=== PATIENT | male | born 1985 | race Caucasian/White ===

== ENCOUNTER → 2024-01-18 06:38 | Day surgery (SDC) | payer OTHER, SELFPAY | LOC: GI 06:38 | PROVIDERS: ATTENDING PHYSICIAN Internal Medicine | DX: Z12.11 Encounter for screening for malignant neoplasm of colon (principal); K52.3 Indeterminate colitis; K63.3 Ulcer of intestine; K63.89 Other specified diseases of intestine; R21 Rash and other nonspecific skin eruption | CPT/HCPCS: 45380; 88305 ==

== ENCOUNTER 2024-08-17 17:01 | Inpatient (IN) | payer OTHER, SELFPAY ==
[2024-08-17] VITALS (10 sets, daily range): BP systolic 111–141; BP diastolic 77–100; BMI 25.3; BMI 24.9
--- NOTE | 2024-08-17 12:27 | ED.GENMED ---
History of Present Illness
General
Chief Complaint: Abdominal Pain
Source: patient
Time Seen by Provider: 08/17/24 12:13
History of Present Illness
History of Present Illness:
38yoM with a history of ulcerative colitis presenting for evaluation of abdominal pain. He reports ongoing lower abdominal pain and rectal bleeding over the past 2-3 weeks. He started to have chills 2 days ago but did not check his temperature. He
has not been eating much due to his symptoms. He developed nausea and vomiting yesterday. He is currently taking Lialda which he has been on for many years. Last colonoscopy was in January 2024 which revealed 'A scattered area of moderately altered
vascular, erythematous, pseudopolypoid and ulcerated mucosa was found from sigmoid to cecum.' Previous abdominal surgeries include an inguinal hernia repair.
Past History
Past History
ED Past Medical History: Other (Ulcerative colitis)
ED Past Surgical History: Other (hernia)
Social History
Tobacco: Non-smoker
Alcohol: None
Personal: Single
Living: alone
Employment: Employed
Phy Exam
General Physical Exam
General Presentation: well appearing and no apparent distress
General age: appears stated age
General Skin: warm and dry
General Habitus: normal
General Mental: alert
ENT Exam
ENT Exam: normocephalic
Cardiovascular Exam
Cardiovascular Exam: tachycardia
Pulmonary Exam
Pulmonary Exam: lungs clear, no respiratory distress, no rales, no crackles, no rhonchi and no wheezing
Gastrointestinal Exam
Gastrointestinal Exam: soft, non distended and tender (+Tenderness throughout lower abdomen with voluntary guarding)
Lonnie Coma Scale
Eye Opening: Spontaneous
Verbal Response: Oriented
Motor Response: Obeys Commands
GCS Total Score: 15
Skin Exam
Skin Exam: normal color and warm/dry
Psychiatric Exam
Psychiatric Exam: normal mood/affect
Sepsis
Sepsis Screening
Sepsis Assessment: Sepsis
Sepsis Screen
Sepsis Screen: Sepsis
Date: 08/17/24
Time: 17:15
Course
Orders/Labs/Results
Orders:
Orders
08/17/24 12:25
Iohexol [Omnipaque] See Protocol PO NOW STA
08/17/24 12:26
CT Abd/pel W Iv And Oral Contr Urgent
Comment:
Reason For Exam: Lower abd pain, fevers, hx of ulcerative colitis
0.9% Sodium Chloride 1000 ml [Nss] 1,000 ml IV BOLUS
08/17/24 12:27
CRP [C-Reactive Protein] Urgent
Complete Blood Count/With Diff Urgent
Comprehensive Metabolic Panel Urgent
Lactic Acid Urgent
08/17/24 15:38
CDIFF [C difficile Antigen & Toxins] Urgent
TODD Source: Feces/Stool
Specimen Description:
Date Specimen was Collected: 08/17/24
Time Specimen was Collected: 16:52
Stool Culture Urgent
TODD Source: Feces/Stool
Specimen Description:
Date Specimen was Collected: 08/17/24
Time Specimen was Collected: 16:52
08/17/24 15:49
Piperacillin/Tazo 4.5 Gram [Zosyn] 4.5 gram in 100 ml IV NOW
08/17/24 16:48
Admit/Transfer Patient As Directed
Co-Sign Provider:
Level of Care: Inpatient admission
Assign to:: Medical/Surgical
Physician / Group: Brennan
Diagnosis: UC Flare
Reason for Hospitalization: UC Flare
Expected length of stay greater than two midnights?: Yes
ELOS- Estimated Length of Stay in days: 3
I certify the patient meets the requirements for IP care: Yes
PRN Pain Medication Management As Directed
May give lesser potent ordered pain med per pt: Yes
preference::
Protocol:: Medication orders for pain may be administered in a
manner that supports deferring to patient preference
when the pt is:
- Requesting an ordered lesser potent pain medication.
Least to most potent pain medications are defined
as: acetaminophen < NSAID < tramadol < opioids
(morphine, oxycodone, hydromorphone).
- Requesting a lesser dose of the same medication IF
ORDERED.
- Requesting a less intrusive route of administration
if both routes are prescribed by the provider (PO <
IV).
08/17/24 16:49
Code Status As Directed
Resuscitation Status: Full Code
Abnormal Lab Results
08/17/24
12:27
WBC 12.7 H 10^3/uL
(4.8-10.8)
RBC 4.64 L 10^6/uL
(4.70-6.10)
Abs Immat Gran (auto) 0.1 H 10^3/uL
(0-0.05)
Absolute Neuts (auto) 8.9 H 10^3/uL
(1.4-6.5)
Absolute Monos (auto) 1.5 H 10^3/uL
(0.1-0.6)
Lymphocytes % 12.9 L %
(20.5-51.1)
Monocytes % 11.7 H %
(1.7-9.3)
BUN < 2 L mg/dl
(9-20)
Glucose 101 H mg/dl
(70-99)
C-Reactive Protein 74.30 H mg/L
(0.0-10.00)
Total Protein 5.9 L g/dl
(6.3-8.2)
08/17/24 12:27
08/17/24 12:27
Vital Signs
Initial and Last Documented VS:
Initial Vital Signs
Temp Pulse Resp BP Pulse Ox
100.5 F H 119 20 133/100 98
08/17/24 12:06 08/17/24 12:06 08/17/24 12:06 08/17/24 12:06 08/17/24 12:06
Last Documented Vital Signs
Temp Pulse Resp BP Pulse Ox
100.5 F H 119 20 130/85 96
08/17/24 12:06 08/17/24 12:06 08/17/24 12:06 08/17/24 16:00 08/17/24 16:30
MDM/Problems Addressed
Differential Diagnosis Includes:
38yoM here with abdominal pain and bloody diarrhea x 2-3 weeks. Now with chills x 2 days and n/v x 1 day. Hx of ulcerative colitis. He is febrile to 100.5 on arrival with associated tachycardia. BP stable. He is non-toxic appearing. There is
voluntary guarding on abdominal exam. Differential diagnosis includes but is not limited to: UC flare, intraabdominal abscess, SBO, infectious colitis
Initial ED plan: Check CBC, CMP, lactate, CRP, and CT abdomen. IV fluid bolus.
*Critical Care Note
Total Time (30-74mins, 75-104mins- exclusive of procedures): Not Applicable
Update Note
Update Note:
Labs reveal a leukocytosis with a WBC of 12.7. CRP 74. Lactate normal. CT shows colitis with backwash ileitis. No abscess noted. Patient meeting SIRS criteria. IV Zosyn and stool studies ordered for possible infectious colitis. Case discussed with
GI and patient admitted for further management.
ED Attending Note
-
Portions of this chart may have been created with voice recognition software.� Occasional wrong word or��sound alike� substitutions may have occurred due to the inherent limitations of voice recognition software.
Discharge Plan
Departure
Patient Disposition: Admit
Date of Disposition: 08/17/24
Time of Disposition: 15:54
Presentation/result/management discussed w/ accepting MD/DO: Hospitalist
Discharge Problem:
Colitis
Interventions
Interventions:
*Risk Screen - Suicide Last Done: 08/17/24 12:22
*General Assessment Last Done: 08/17/24 12:22
*Neglect/Abuse Screening Last Done: 08/17/24 12:22
*ED COVID-19 Vaccine History Last Done: 08/17/24 12:22
DM-Bbwywl-Lglzfudsgl Assessment Last Done: 08/17/24 12:22
[2024-08-17] MEDS: NSS 1000 IV (12:34)
[2024-08-17] MEDS: OMNIPAQUE 50 ML PO (12:34)
[2024-08-17 12:53] LABS: % Basophils 0.5 % (0-2); % Eosinophils 4.7 % (0-6); % Immature Granulocytes 0.5 % (0-0.5); % Lymphocytes 12.9 % (20.5-51.1); % Monocytes 11.7 % (1.7-9.3); % Neutrophils 69.7 % (42.2-75.2); Absolute Basophils 0.1 10^3/uL (0-0.2); Absolute Eosinophils 0.6 10^3/uL (0-0.7); Absolute Immature Granulocytes 0.1 10^3/uL (0-0.05); Absolute Lymphocytes 1.6 10^3/uL (1.2-3.4); Absolute Monocytes 1.5 10^3/uL (0.1-0.6); Absolute Neutrophils 8.9 10^3/uL (1.4-6.5); Hemoglobin 13.7 g/dL (13.0-18.0); Mean Corp Hgb Conc. 35.1 g/dL (33.0-37.0); Mean Corpuscular Hgb 29.5 pg (27.0-31.0); Mean Corpuscular Volume 84.1 fL (80.0-94.0); Mean Platelet Volume 9.7 fL (7.4-10.4); Nucleated Red Blood Cells % 0 % (-); Platelet Count 382 10^3/uL (130-400); Red Blood Cell Count 4.64 10^6/uL (4.70-6.10); Red Cell Dist. Width 13.1 % (11.5-14.5); White Blood Cell Count 12.7 10^3/uL (4.8-10.8)
[2024-08-17 13:02] LABS: Lactic Acid 1.1 mmol/L (0.7-2.0)
[2024-08-17 13:04] LABS: ALT (SGPT) 21 U/L (0-50); AST (SGOT) 17 U/L (17-59); Albumin 3.5 g/dl (3.5-5.0); Alkaline Phosphatase 80 U/L (38-126); Blood Urea Nitrogen < 2 mg/dl (9-20); Carbon Dioxide 30 mmol/L (22-30); Chloride 102 mmol/L (98-107); Estimated Creatinine Clearance 117 ml/min; Glucose 101 mg/dl (70-99); Potassium 3.5 mmol/L (3.5-5.1); Sodium 140 mmol/L (135-145); Total Bilirubin 0.4 mg/dl (0.2-1.3); Total Protein 5.9 g/dl (6.3-8.2); eGFR > 60.00
[2024-08-17] MEDS: ZOSYN 100 IV (15:54)
--- NOTE | 2024-08-17 16:52 | HPS.HSE ---
Family Physician
-
Family Physician: Modesto Lopez
Chief Complaint
-
Abd Pain, Bloody diarrhea
History of Present Illness
Patient is a 38y M with PMH significant for ulcerative colitis who presents to ED complaining of abdominal pain, diarrhea / bloody stools for several weeks. Patient is followed by local GI for UC and is maintained on Lialda. He states that he
has been having more frequent / more severe flares of his symptoms. He notes that he has been having diffuse abdominal pain and intermittent bloody / mucousy stools for the past 2-3 weeks. He has tried to manage his symptoms at home (did not reach
out to GI / provider, no new Rx for steroids / abx / etc). Last PM he developed N/V which was a new symptoms - prompting him to present today to the ED for further evaluation.
Medical History
Past Medical History
Past Medical History: Reports Other
Additional Past Medical History:
Ulcerative Colitis
ADHD
Seasonal Allergies
Childhood Seizures
Past Surgical History: Reports Other
Additional Past Surgical History:
Hernia Repair
Hydrocele Repair
Perianal Fistulectomy
Social History
Tobacco: Vaping (Prior history of smoking. Uses e-cigarette for the past 10 years.)
Alcohol: Daily (4-6 beers daily.)
Drug: None
Family History
Family History: Other (Maternal Uncle: UC Paternal Side: Aneurysms)
Allergies / Home Medications
Allergies reflects when Allergies were last updated in [facility].
Home Medications with original date entered in [facility]
Allergy/Medication List:
Allergies
Allergy/AdvReac Type Severity Reaction Status Date / Time
cefaclor [Cefaclor] Allergy Unknown Verified 08/17/24 12:08
phenobarbital Allergy Unknown Verified 08/17/24 12:08
phenytoin Allergy Unknown Verified 08/17/24 12:08
Home Medications
acetaminophen 500 mg tablet (Tylenol Extra Strength) 1,000 mg PO Q6HPRN PRN MILD PAIN 03/10/21
cetirizine 10 mg tablet 10 mg PO DAILY@119903/10/21
cholecalciferol (vitamin D3) 50 mcg (2,000 unit) tablet 2,000 units PO DAILY@119903/10/21
dextroamphetamine-amphetamine 10 mg tablet 10 mg PO BID 03/10/21
escitalopram oxalate 10 mg tablet 10 mg PO DAILY@119903/10/21
mesalamine 1.2 gram tablet,delayed release (Lialda) 2.4 g PO DAILY@119903/10/21
multivitamin with folic acid 400 mcg tablet (Tab-A-Mali) 1 tab PO DAILY@119903/10/21
fluticasone propionate 50 mcg/actuation nasal spray,suspension 1 spray intranasal DAILYPRN PRN conjestion 08/17/24
Review of Systems
-
History Source: Patient
A 12 point ROS was completed and negative except as noted: Yes
Constitutional: Reports Fatigue; Denies Fever or Chills
EENT: Denies Sore Throat
Respiratory: Denies Cough or Trouble Breathing
Cardiac: Denies Chest Pain or Palpitations
Abdomen/GI: Reports Abdominal Pain, Nausea, Vomiting, Diarrhea and Bloody Stools
: Denies Dysuria, Frequency or Flank Pain
Musculoskeletal: Denies Joint Pain or Edema
Neurological: Denies Dizzy or Headache
Physical Exam
Vital Signs
Vital Signs
Temp Pulse Resp BP Pulse Ox
100.5 F H 119 20 130/85 96
08/17/24 12:06 08/17/24 12:06 08/17/24 12:06 08/17/24 16:00 08/17/24 16:30
Physical Exam
General: Other (38y M in no acute distress.)
HEENT: Moist mucous membranes and PERRLA
Respiratory: Clear; No Wheezes, Rales or Rhonchi
Cardiac: S1/S2 and Regular Rhythm; No Murmur
GI: Soft, Non Distended, Normal Bowel Sounds and Other (Diffusely tender. No rebound / guarding.)
Musculoskeletal: No Clubbing, No Cyanosis and No Edema
Neuro: AO x 3
Laboratory Results
-
08/17/24 12:
08/17/24 12:
Laboratory Results
Lactic Acid 1.1 mmol/L (0.7-2.0) 08/17/24 12:
Total Bilirubin 0.4 mg/dl (0.2-1.3) 08/17/24 12:
AST 17 U/L (17-59) 08/17/24 12:
ALT 21 U/L (0-50) 08/17/24 12:
Alkaline Phosphatase 80 U/L (38-126) 08/17/24 12:
Impression/Plan
-
A/P: Patient is a 38y M with PMH significant for ulcerative colitis who presents to ED complaining of several weeks of abdominal pain and bloody diarrhea.
Ulcerative Colitis with Acute Flare
- Admit for further evaluation and treatment.
- Begin IV Zosyn for now.
- IVF support, pain control, antiemetics, etc.
- Continue Lialda.
- GI evaluation for additional recommendations.
- Check stool studies / cultures.
- If CDiff negative - begin IV Solumedrol 20mg q8.
- Follow for clinical improvement.
ADHD
- Stable. Hold Adderall acutely.
Anxiety / depression
- Stable. Continue Lexapro
Alcohol Use Disorder
- Patient reports about 4-6 beers daily.
- Also note prior history of childhood seizures - none in many years.
- Monitor for any evidence of withdrawal symptoms.
- Treat with PRN BZDs if needed.
- Thiamine, folate, MVI replacement.
DVT Prophylaxis: SCDs
Code Status: Full
[2024-08-17] MEDS: ZOSYN 50 IV (21:22)
[2024-08-17] MEDS: LR 1000 IV (21:23)
[2024-08-17] MEDS: ZOFRAN 4 MG IV (21:24)
[2024-08-17] MEDS: TYLENOL 650 MG PO (21:24)
[2024-08-17] MEDS: THIAMINE INJECTION 200 MG IV (21:24)
[2024-08-17 23:08] LABS: Amphetamines Positive (Negative); Barbiturates Negative (Negative); Benzodiazepines Negative (Negative); Buprenorphine Negative (Negative); Cocaine Negative (Negative); Methadone Negative (Negative); Methamphetamines Negative (Negative); Opiates Negative (Negative)
[2024-08-17 23:09] LABS: Marijuana Negative (Negative); Phencyclidine Negative (Negative); Tricyclic Antidepressants Negative (Negative)
[2024-08-17 23:25] LABS: Fentanyl, Urine Negative (Negative)
[2024-08-18] MEDS: ZOSYN 50 IV (03:30)
[2024-08-18] MEDS: DILAUDID 0.5 MG IV ×2 (03:44→09:59)
[2024-08-18] MEDS: ZOFRAN 4 MG IV ×3 (03:44→17:04)
[2024-08-18] MEDS: LR 1000 IV ×3 (05:32→20:39)
[2024-08-18 06:55] LABS: Hematocrit 37.5 % (39.0-52.0); Hemoglobin 13.1 g/dL (13.0-18.0); Mean Corp Hgb Conc. 34.9 g/dL (33.0-37.0); Mean Corpuscular Hgb 30.6 pg (27.0-31.0); Mean Corpuscular Volume 87.6 fL (80.0-94.0); Mean Platelet Volume 10.1 fL (7.4-10.4); Platelet Count 347 10^3/uL (130-400); Red Blood Cell Count 4.28 10^6/uL (4.70-6.10); Red Cell Dist. Width 13.2 % (11.5-14.5); White Blood Cell Count 14.1 10^3/uL (4.8-10.8)
[2024-08-18 07:12] LABS: Blood Urea Nitrogen 4 mg/dl (9-20); Calcium 8.5 mg/dl (8.4-10.2); Carbon Dioxide 27 mmol/L (22-30); Chloride 101 mmol/L (98-107); Estimated Creatinine Clearance 117 ml/min; Glucose 93 mg/dl (70-99); Potassium 3.5 mmol/L (3.5-5.1); Sodium 141 mmol/L (135-145); eGFR > 60.00
[2024-08-18 07:51] VITALS: BP 129/68
[2024-08-18] MEDS: FOLVITE 1 MG PO (07:54)
[2024-08-18] MEDS: THIAMINE INJECTION 200 MG IV ×2 (07:54→19:56)
[2024-08-18 08:18] LABS: Erythrocyte Sed Rate 22 mm/hour (0-20)
--- NOTE | 2024-08-18 09:03 | CON.GI ---
Addendum entered and electronically signed by Arely Galvan MD 08/18/24 11:19:
I saw and examined the patient.
The DREDGEMASTER's note was reviewed and I agree with the note.
Comment: This is a 38-year-old male with history of ulcerative pancolitis diagnosed in 2015 and also had history of perianal abscess in 2020 who had actually been doing well on Lialda initially 4 pills daily and was able to decrease it to 2.4 g
daily up until about a month ago when he started to have symptoms of diarrhea and over the past 2 weeks also has been having rectal bleeding. He unfortunately had not called our office to report the symptoms of the flare. He sees Dr. Frederick and his
last colonoscopy was in January 2024 and biopsy showed mild active colitis in the descending and sigmoid colon. He says that he has been under incredible amount of stress over the past couple of months at work. He only has occasional use of NSAIDs
he does use e-cigarettes and also drinks about 4-6 beers daily. He also was recently exposed to his sgnxkc-ur-bff who had COVID. He says that since Sunday though he has been having symptoms of nausea vomiting and also chills and diaphoresis and
when he came into the ER yesterday he had low-grade fever and CT shows colitis. His stool was negative for C. difficile and cultures are pending. He had been started on antibiotics also.
Assessment and plan ongoing symptoms of a flare for the past 1 month unfortunately had not reported the symptoms to our office now has findings of pancolitis with elevated CRP most consistent with UC flare doubt infection but over the last 2 days
though he has been having low-grade fever, chills and also nausea vomiting which I think may be superimposed viral syndrome CT was negative for bowel obstruction. He had recent exposure to COVID will check for COVID. Stool C. difficile is
negative. Will start him on steroids, probiotics, continue IV fluids and Zofran as needed he has not had any further vomiting since today AM tolerating clears. Will DC antibiotics pending stool cultures. Unclear if this was stress triggered has
been under a lot of stress over the past couple of months. Denies use of NSAIDs. If he does have recurrence of symptoms/flare when off the steroids may need escalation of therapy with Biologics will follow-up with Dr. Frederick as outpatient
2. History of HH and GERD with recent symptoms of nausea vomiting will restart him on PPI, was able to wean off Prilosec a few years ago
3. he also does consume alcohol 4-6 beers daily watch for withdrawal started on thiamine and folic acid. He also uses e-cigarettes encouraged him to quit both.
Addendum entered and electronically signed by VICKY Watson 08/18/24 10:27:
pt admits to covid expose in family -with low grade fever will check covid testing
Original Note:
Consultation
-
Date/Time Consultation Requested: 08/17/24 2200
Date/Time Consultation Performed: 08/18/24 0900
Requesting Provider: Rashawn Amin DO
Performing Provider: VICKY Lopez, Arely Galvan MD
Reason for Consultation: UC flare
Medical History
Chief Complaint / HPI
Chief Complaint: abdominal pain, diarrhea, bloody stools
History of Present Illness:
Pt is a 38yo with hx GERD, ADHD, hernia repair and albrecht ulcerative colitis. In reviewing with patient he was diagnosed in 2015 with ER admission 2020 with perianal abscess and was doing well on Lialda 2 tabs daily. He was last seen in 2022 with
colonoscopy in January Altered vascular, erythematous, pseudopolypoid and ulcerated mucosa from sigmoid to cecum (scattered) bx mild active colitis descending and sigmoid. Pt states over last few months he has noted progressive change in bowel
habits with abdominal pain, diarrhea and rectal bleeding. Over the weekend he then noted nausea vomiting along with worsening lower abdominal pain with some loose stools and others all blood. On admission Ct notable for diffuse colitis greatest
descending and transverse with sparing of hepatic flexure and right colon nodular distal ileum with ' backwash ileitis'.
Pt also admits to wt loss of about 12 lbs. He also admits to chronic GERD no chronic meds but denies dysphagia, constipation or black stools.
Past Medical History
Past Medical History: GERD, HTN, Psychiatric (ADHD, panic attacks) and Other ( ulcerative pancolitis, 2020 peranal abscess )
Past Surgical History: Other (inguinal hernia repair)
Social History
Tobacco: Other (E cigarette use )
Alcohol: Daily (4-6 beers daily )
Drug: None
Personal:
Living: With Family
Employment: Employed
Family History
Family History: Other (uncle with UC)
Allergies / Home Medications
Allergy/AdvReac Type Severity Reaction Status Date / Time
cefaclor [Cefaclor] Allergy Unknown Verified 08/17/24 12:08
phenobarbital Allergy Unknown Verified 08/17/24 12:08
phenytoin Allergy Unknown Verified 08/17/24 12:08
�Medication �Instructions �Recorded
acetaminophen 500 mg tablet 1,000 mg PO Q6HPRN PRN MILD PAIN 03/10/21
(Tylenol Extra Strength)
cetirizine 10 mg tablet 10 mg PO DAILY@1200 03/10/21
cholecalciferol (vitamin D3) 50 2,000 units PO DAILY@119903/10/21
mcg (2,000 unit) tablet
dextroamphetamine-amphetamine 10 10 mg PO BID 03/10/21
mg tablet
escitalopram oxalate 10 mg tablet 10 mg PO DAILY@1200 03/10/21
mesalamine 1.2 gram tablet,delayed 2.4 g PO DAILY@119903/10/21
release (Lialda)
multivitamin with folic acid 400 1 tab PO DAILY@119903/10/21
mcg tablet (Tab-A-Mali)
fluticasone propionate 50 1 spray intranasal DAILYPRN PRN 08/17/24
mcg/actuation nasal conjestion
spray,suspension
Review of Systems
-
History Source: Patient and Family
Constitutional: Reports Weight Loss and Fatigue
EENT: Reports No Symptoms
Respiratory: Reports No Symptoms
Cardiac: Reports No Symptoms
Abdomen/GI: Reports Abdominal Pain, Nausea, Vomiting, Diarrhea, Bloody Stools and Anorexia
: Reports No Symptoms
Musculoskeletal: Reports No Symptoms
Skin: Reports No Symptoms
Neurological: Reports Weakness
Endocrine: Reports No Symptoms
Hematologic/Lymphatic: Reports Bleeding
Vital Signs
Temp Pulse Resp BP Pulse Ox
99.0 F 77 16 129/68 98
08/18/24 07:51 08/18/24 07:51 08/18/24 07:51 08/18/24 07:51 08/18/24 07:51
Physical Exam
Exam
General: Well Developed, Well Nourished and No Apparent Distress
HEENT: Normocephalic and Anicteric
Respiratory: Clear
Cardiac: Regular Rhythm
GI: Soft, Non Distended and Tender (lower abdomen )
Musculoskeletal: No Clubbing and No Cyanosis
Skin: Warm and Dry
Neuro: Awake, Alert and AO x 3
Psych: Calm
Results
WBC 14.1 10^3/uL (4.8-10.8) H 08/18/24 06:21
Hgb 13.1 g/dL (13.0-18.0) 08/18/24 06:21
Hct 37.5 % (39.0-52.0) L 08/18/24 06:21
MCV 87.6 fL (80.0-94.0) 08/18/24 06:21
Plt Count 347 10^3/uL (130-400) 08/18/24 06:21
Absolute Neuts (auto) 8.9 10^3/uL (1.4-6.5) H 08/17/24 12:27
Sodium 141 mmol/L (135-145) 08/18/24 06:21
Potassium 3.5 mmol/L (3.5-5.1) 08/18/24 06:21
Chloride 101 mmol/L (98-107) 08/18/24 06:21
Carbon Dioxide 27 mmol/L (22-30) 08/18/24 06:21
BUN 4 mg/dl (9-20) L 08/18/24 06:21
Creatinine 0.8 mg/dL (0.7-1.3) 08/18/24 06:21
Calcium 8.5 mg/dl (8.4-10.2) 08/18/24 06:21
Total Bilirubin 0.4 mg/dl (0.2-1.3) 08/17/24 12:27
AST 17 U/L (17-59) 08/17/24 12:27
ALT 21 U/L (0-50) 08/17/24 12:27
Alkaline Phosphatase 80 U/L (38-126) 08/17/24 12:27
Diagnostic Image Results:
CT Abd/pel W Iv And Oral Contr
IMPRESSION: Findings compatible with diffuse colitis, greatest involvement of the descending colon and the transverse colon, relatively sparing the hepatic flexure and right colon. Patient has a history of ulcerative colitis.
Subtle nodular wall thickening involving the distal ileum, suggestive of so-called 'backwash ileitis' given the clinical history.
Minimal amount of free fluid within the right inferior pelvis.
No evidence for bowel obstruction. No evidence for free intraperitoneal air.
Prior GI Procedures:
----01/2024- colonoscopy [facility] with perianal rash, Altered vascular, erythematous, pseudopolypoid and ulcerated mucosa from sigmoid to cecum (scattered). In between areas were not inflamed but congested.
Biopsied. Ileum normal. bx mild active colitis descending and sigmoid
������----12/2017 colonoscopy, assessment of albrecht ulcerative colitis on maintenance 2 pills of Lialda. 12/18/17: endoscopic remission. Biopsies: Slight activity in the cecum, ascending, and rectum. Transverse and sigmoid are quiescent. would continue
maintenance therapy. If he has a flare on maintenance will need to consider stepping up therapy.
�������---12/2017 EGD, suspected EOE. Second endoscopy on twice a day PPI 8 weeks. Improved but consistent endoscopic concern for EOE however biopsies revealed no eosinophils. This is consistent with reflux. 2cm hiatal hernia. Normal stomach and
duodenum. Plan: Continue once daily as a medication for now. In 1 year will attempt to decrease PPI use
�������----2016 Colonoscopy: MOREIRA 2 throughout the entire colon with Path: moderate to severe evidence of chronicity throughout the colon with mild activity in the left colon. Consistent with albrecht ulcerative colitis. Normal TI with normal biopsies.
Assessment / Plan
-
Pt is a 38yo with hx GERD, ADHD, hernia repair and albrecht ulcerative colitis. In reviewing with patient he was diagnosed in 2015 with ER admission 2020 with perianal abscess and was doing well on Lialda 2 tabs daily. He was last seen in 2022 with
colonoscopy in January Altered vascular, erythematous, pseudopolypoid and ulcerated mucosa from sigmoid to cecum (scattered) bx mild active colitis descending and sigmoid. Pt states over last few months he has noted progressive change in bowel
habits with abdominal pain, diarrhea and rectal bleeding. Over the weekend he then noted nausea vomiting along with worsening lower abdominal pain with some loose stools and others all blood. On admission Ct notable for diffuse colitis greatest
descending and transverse with sparing of hepatic flexure and right colon nodular distal ileum with ' backwash ileitis'.
-diffuse colitis on CT
-diarrhea with bleeding
-nausea/vomiting
-hx Ulcerative colitis on Lialda prior to admission
-mild elevated ESR
-leukocytosis
-prior perianal abscess not noted on follow up CT
-GERD with increased symptoms
-wt loss
other med problems:
-ADHD
-hernia repair
-daily ETOH use
PLAN:
etiology of abdominal pain with diarrhea and bleeding related to UC flare vs other
stools studies pending c-diff neg, add giardia, crypto
will hold abx and add IV steroids
cont pain management and antiemetics per medical team
will need to review with Dr. Frederick for eventual change in therapy vs dose escalation
currently remain on Lialda daily
add hepatitis and TB testing
ok for clears advance as tolerated
add PPI with increased GERD
compression stocking for DVT prophylaxis
discussed ETOH abstinence monitor for withdrawal
will follow
-
-
Thank you for consultation and allowing me to participate in the patient's care. Please call the manager fashion GI physician during the after hours with any questions or concerns.
[2024-08-18] MEDS: PROTONIX 40 MG PO (09:59)
[2024-08-18] MEDS: SOLU-MEDROL PF 20 MG IV ×2 (09:59→16:34)
[2024-08-18 11:03] LABS: COVID-19 Antigen Negative (Negative)
[2024-08-18] MEDS: VISBIOME 2 CAP PO (12:42)
[2024-08-18] MEDS: LEXAPRO 10 MG PO (12:42)
[2024-08-18 14:29] VITALS: BMI 24.9
[2024-08-18 15:00] VITALS: BP 130/80
--- NOTE | 2024-08-18 15:32 | W.PN.HOSP.TC ---
Today's Communication/Plan
-
IV steroids.
Antiemetics
Clear liquid diet
Assessment / Plan
Assessment / Plan
Impression:
Presentation with nausea, vomiting, diffuse abdominal pain, diarrhea with hematochezia.
Diffuse colitis secondary to ulcerative colitis flare
Reactive leukocytosis.
Other conditions:
GERD
ADHD
Daily alcohol consumption.
History of hernia repair
Plan:
Ulcerative colitis flare.
Maintenance therapy Lialda
CT scan
Findings compatible with diffuse colitis, greatest involvement of the descending colon and the transverse colon, relatively sparing the hepatic flexure and right colon. Patient has a history of ulcerative colitis.
Subtle nodular wall thickening involving the distal ileum, suggestive of so-called 'backwash ileitis' given the clinical history.
Minimal amount of free fluid within the right inferior pelvis.
No evidence for bowel obstruction. No evidence for free intraperitoneal air.
Less likely infectious colitis.
Monitor off antibiotics pending stool cultures.
Initiated on systemic corticosteroids/Solu-Medrol 20 mg every 8 hours
Probiotics
Antiemetics
Clear liquid diet
Consideration of Biologics after steroid taper as outpatient
.ADHD
- Stable. Hold Adderall acutely.
Anxiety / depression
- Stable. Continue Lexapro
Alcohol Use Disorder
- Patient reports about 4-6 beers daily.
- Also note prior history of childhood seizures - none in many years.
- Monitor for any evidence of withdrawal symptoms.
- Treat with PRN BZDs if needed.
- Thiamine, folate, MVI replacement.
DVT Prophylaxis: SCDs
Code Status: Full
Anticipated Discharge: > 48 hours
Subjective/Interval History
-
Date of Service: August 18, 2024
Objective Data
-
Labs:
Laboratory Results
08/18/24
06:21
WBC 14.1 H
Hgb 13.1
Hct 37.5 L
Plt Count 347
Sodium 141
Potassium 3.5
Chloride 101
Carbon Dioxide 27
BUN 4 L
Creatinine 0.8
Glucose 93
Calcium 8.5
Vital Signs:
Vital Signs
Temp Pulse Resp BP Pulse Ox
99.0 F 77 16 129/68 98
08/18/24 07:51 08/18/24 07:51 08/18/24 07:51 08/18/24 07:51 08/18/24 12:21
I&O
08/17/24 08/18/24 08/19/24
06:59 06:59 06:59
Intake Total 480 / 480
Output Total 550 / 550
Balance -70 / -70
Physical Exam
-
General: Well Developed and No Apparent Distress
HEENT: Normocephalic, Atraumatic and Moist Mucous Membranes
Respiratory: Clear to Auscultation
Cardiac: Regular Rhythm and S1/S2; Negative Murmur, Rub or Gallop
GI: Soft, Nontender, Nondistended and Normal Bowel Sounds; Negative Organomegaly
Rectal: Deferred by Provider
Musculoskeletal: No Clubbing, No Cyanosis and No Edema
Skin: Negative Rash
Neuro: Nonfocal/Grossly Intact
[2024-08-18] MEDS: TYLENOL 650 MG PO (16:34)
--- NOTE | 2024-08-18 16:48 | CM ---
manager culture reviewed patient's chart and met with patient and patient lives with his spouse in a 2 story home, patient is independent with adl's and ambulation, no dme, patient drives, egg caser received a referral for substance abuse
counseling, however patient declined the need for counseling or treatment options.
Pharmacy: [facility]
PCP: Dr. Crook
Plan; Home with family no needs.
[2024-08-18 23:00] VITALS: BP 120/83
[2024-08-19] MEDS: SOLU-MEDROL PF 20 MG IV ×3 (01:32→17:34)
[2024-08-19] MEDS: DILAUDID 0.5 MG IV ×2 (04:44→20:11)
[2024-08-19] MEDS: ZOFRAN 4 MG IV ×4 (04:44→23:41)
[2024-08-19] MEDS: NICODERM TRANSDERMAL 21 MG TRANSDERM ×3 (05:50→17:33)
[2024-08-19 06:41] LABS: Hemoglobin 12.4 g/dL (13.0-18.0); Mean Corp Hgb Conc. 35.4 g/dL (33.0-37.0); Mean Corpuscular Hgb 29.7 pg (27.0-31.0); Mean Corpuscular Volume 83.7 fL (80.0-94.0); Mean Platelet Volume 10.1 fL (7.4-10.4); Platelet Count 369 10^3/uL (130-400); Red Blood Cell Count 4.18 10^6/uL (4.70-6.10); Red Cell Dist. Width 13.2 % (11.5-14.5); White Blood Cell Count 15.6 10^3/uL (4.8-10.8)
[2024-08-19 06:59] LABS: Blood Urea Nitrogen 4 mg/dl (9-20); Calcium 8.8 mg/dl (8.4-10.2); Carbon Dioxide 28 mmol/L (22-30); Chloride 103 mmol/L (98-107); Estimated Creatinine Clearance > 125 ml/min; Glucose 131 mg/dl (70-99); Potassium 3.8 mmol/L (3.5-5.1); Sodium 140 mmol/L (135-145); eGFR > 60.00
[2024-08-19 07:29] LABS: Hepatitis B Surface Antigen Negative (Negative)
[2024-08-19 07:34] LABS: Hepatitis B Core Ab, IgM Negative (Negative)
[2024-08-19 07:47] LABS: Hepatitis B Core Ab, Total Negative (Negative); Hepatitis B Surface Antibody Positive; Hepatitis C Antibody Negative (Negative)
[2024-08-19 07:53] VITALS: BP 137/73
--- NOTE | 2024-08-19 09:05 | PN.CDI ---
CDI
- -
CDI:
Physician Documentation Request
Admit Date: 08/17/24 17:01
Dear Doctor Tasneem,
Patient admitted for ulcerative colitis flare.
08/18 Hospitalist PN: 'Less likely infectious colitis. Monitor off antibiotics pending stool cultures.'
Laboratory Tests
08/17/24 08/18/24
12:27 06:21
WBC 12.7 H 14.1 H
08/17/24
12:06
Temp 100.5 F H
08/17/24
12:06 08/17/24
20:28
Pulse 119 95
Please clarify which most accurately describes the patient:
SIRS due to a non-infectious source
Indicate the known or suspected etiology
Indicate if there is associated organ dysfunction, such as renal or respiratory failure
Sepsis
Systemic manifestations of infection, with 2 or more SIRS criteria which include:
Fever > 100.4 degrees F or hypothermia < 96.8 degrees F
Leukocytosis - WBC > 12,000 or leukopenia, WBC < 4,000 or > 10% bands
Tachycardia - > 90 beats per minute
Tachypnea - RR > 20 breaths per minute or PaCO2 < 32 mmHg
Source: Merck Manual 2013
Indicate the known or suspected organism
Indicate the known or suspected underlying infection, such as UTI, pneumonia or cellulitis
Indicate if a suspected bacterial infection of unknown source
Indicate if associated with an implanted device such as a F/C, PICC line, orthopedic hardware etc.
Indicate if there is associated organ dysfunction, such as renal or respiratory failure
Other
Use of terms such as suspected, likely, concern for, or probable (associated with a specific diagnosis that is being evaluated, monitored, or treated as if it exists) are acceptable and can be coded in the inpatient setting, when documented at the
time of discharge.
Thank you,
Edna Landis RN, BSN
CDI Specialist
Available via [place] text
Please use your independent medical judgment in providing your response.
[2024-08-19] MEDS: THIAMINE INJECTION 200 MG IV ×2 (09:06→20:05)
[2024-08-19] MEDS: PROTONIX 40 MG PO (09:06)
[2024-08-19] MEDS: FOLVITE 1 MG PO (09:06)
[2024-08-19] MEDS: VISBIOME 2 CAP PO (09:06)
[2024-08-19] MEDS: LEXAPRO 10 MG PO (11:14)
--- NOTE | 2024-08-19 13:16 | W.PN.GI.CBS2 ---
Today's Communication / Plan
-
Adv diet
Assessment / Plan
-
Pt is a 38yo with hx GERD, ADHD, hernia repair and albrecht ulcerative colitis. In reviewing with patient he was diagnosed in 2015 with ER admission 2020 with perianal abscess and was doing well on Lialda 2 tabs daily. He was last seen in 2022 with
colonoscopy in January Altered vascular, erythematous, pseudopolypoid and ulcerated mucosa from sigmoid to cecum (scattered) bx mild active colitis descending and sigmoid. Pt states over last few months he has noted progressive change in bowel
habits with abdominal pain, diarrhea and rectal bleeding. Over the weekend he then noted nausea vomiting along with worsening lower abdominal pain with some loose stools and others all blood. On admission Ct notable for diffuse colitis greatest
descending and transverse with sparing of hepatic flexure and right colon nodular distal ileum with ' backwash ileitis'.
-diffuse colitis on CT
-diarrhea with bleeding
-nausea/vomiting
-hx Ulcerative colitis on Lialda prior to admission
-mild elevated ESR
-leukocytosis
-prior perianal abscess not noted on follow up CT
-GERD with increased symptoms
-wt loss
other med problems:
-ADHD
-hernia repair
-daily ETOH use
PLAN:
etiology of abdominal pain with diarrhea and bleeding related to UC flare vs other
stools studies c-diff neg, crypto and Giardia negative, cultures are pending
Continue IV steroids
cont pain management and antiemetics per medical team
Hepatitis B surface antibody positive from prior vaccination
Will advance to low residue diet
added PPI for GERD sx and nausea
compression stocking for DVT prophylaxis
discussed ETOH abstinence and also told him to quit smoking e-cigarettes, monitor for withdrawal
Continue thiamine folic acid
If he does have recurrence of symptoms/flare when off the steroids may need escalation of therapy with Biologics will follow-up with Dr. Frederick as outpatient
Subjective
Subjective
Date of Service: August 19, 2024
Symptoms are slowly improving, he had less diarrhea today, he had nausea no vomiting
Currently denies abdominal pain
Objective
Data Reviewed
Laboratory Data:
Laboratory Results
08/19/24 06:16
08/19/24 06:16
Laboratory Results
Phosphorus Cancelled 08/17/24 20:22
Magnesium Cancelled 08/17/24 20:22
Total Bilirubin 0.4 mg/dl (0.2-1.3) 08/17/24 12:27
AST 17 U/L (17-59) 08/17/24 12:27
ALT 21 U/L (0-50) 08/17/24 12:27
Alkaline Phosphatase 80 U/L (38-126) 08/17/24 12:27
Vital Signs and I&O:
Vital Signs
Temp Pulse Resp BP Pulse Ox
98.1 F 83 16 137/73 95
08/19/24 07:53 08/19/24 07:53 08/19/24 07:53 08/19/24 07:53 08/19/24 09:59
I&O
08/18/24 08/19/24 08/20/24
06:59 06:59 06:59
Intake Total 480 / 480 4167 / 4167
Output Total 550 / 550
Balance -70 / -70 4167 / 4167
Physical Exam
Physical Exam
Cardiology: Normal Sinus Rhythm
Pulmonary: Clear
GI: Soft, Non Distended, Non Tender and Normal Bowel Sounds
[2024-08-19] MEDS: NON-FORMULARY ITEM PO (14:09)
[2024-08-19] MEDS: NON-FORMULARY ITEM 4.8 GRAMS PO (14:10)
--- NOTE | 2024-08-19 14:16 | PTCARENOTE ---
Patient provided home med of Lialda to this RN. Medication bottle sent to pharmacy, increased dose of 4.8 grams daily confirmed by GI, medication verified by pharmacy and administered by this RN. Patient made aware of 1 pill left in pill bottle,
instructed to notify family member to bring in new bottle in AM for tomorrow's dose if able.
--- NOTE | 2024-08-19 14:59 | CM ---
Reviewed the chart notes and spoke with the patient at the bedside. Patient anticipates possible discharge tonight. CM continues to be available to patient/family and is monitoring medical plan for needs at discharge.
Plan: Discharge to home when medically stable. No needs anticipated.
[2024-08-19 15:35] VITALS: BP 134/91
--- NOTE | 2024-08-19 16:07 | W.PN.HOSP.TC ---
Today's Communication/Plan
-
Continue IV steroids today.
Continue mesalamine per
Advance diet to full liquid�low residue.
Assessment / Plan
Assessment / Plan
Impression:
Presentation with nausea, vomiting, diffuse abdominal pain, diarrhea with hematochezia.
Diffuse colitis secondary to ulcerative colitis flare
Reactive leukocytosis.
Other conditions:
GERD
ADHD
Daily alcohol consumption.
History of hernia repair
Plan:
Ulcerative colitis flare.
Maintenance therapy Lialda
CT scan
Findings compatible with diffuse colitis, greatest involvement of the descending colon and the transverse colon, relatively sparing the hepatic flexure and right colon. Patient has a history of ulcerative colitis.
Subtle nodular wall thickening involving the distal ileum, suggestive of so-called 'backwash ileitis' given the clinical history.
Minimal amount of free fluid within the right inferior pelvis.
No evidence for bowel obstruction. No evidence for free intraperitoneal air.
Less likely infectious colitis.
Monitor off antibiotics pending stool cultures.
Initiated on systemic corticosteroids/Solu-Medrol 20 mg every 8 hours
Probiotics
Antiemetics
Full liquid low residue diet today
Consideration of Biologics after steroid taper as outpatient
.ADHD
- Stable. Hold Adderall acutely.
Anxiety / depression
- Stable. Continue Lexapro
Alcohol Use Disorder
- Patient reports about 4-6 beers daily.
- Also note prior history of childhood seizures - none in many years.
- Monitor for any evidence of withdrawal symptoms.
- Treat with PRN BZDs if needed.
- Thiamine, folate, MVI replacement.
DVT Prophylaxis: SCDs
Code Status: Full
Anticipated Discharge: 24 - 48 hours
Subjective/Interval History
-
Date of Service: August 19, 2024
Objective Data
-
Labs:
Laboratory Results
08/19/24
06:16
WBC 15.6 H
Hgb 12.4 L
Hct 35.0 L
Plt Count 369
Sodium 140
Potassium 3.8
Chloride 103
Carbon Dioxide 28
BUN 4 L
Creatinine 0.7
Glucose 131 H
Calcium 8.8
Vital Signs:
Vital Signs
Temp Pulse Resp BP Pulse Ox
98.1 F 83 16 137/73 95
08/19/24 07:53 08/19/24 07:53 08/19/24 07:53 08/19/24 07:53 08/19/24 09:59
I&O
08/18/24 08/19/24 08/20/24
06:59 06:59 06:59
Intake Total 480 / 480 4167 / 4167
Output Total 550 / 550
Balance -70 / -70 4167 / 4167
Physical Exam
-
General: Well Developed and No Apparent Distress
HEENT: Normocephalic, Atraumatic and Moist Mucous Membranes
Respiratory: Clear to Auscultation
Cardiac: Regular Rhythm and S1/S2; Negative Murmur, Rub or Gallop
GI: Soft, Nontender, Nondistended and Normal Bowel Sounds; Negative Organomegaly
Rectal: Deferred by Provider
Musculoskeletal: No Clubbing, No Cyanosis and No Edema
Skin: Negative Rash
Neuro: Nonfocal/Grossly Intact
[2024-08-19 17:28] VITALS: BP 134/91
[2024-08-19 22:48] VITALS: BP 127/83
[2024-08-20] MEDS: SOLU-MEDROL PF 20 MG IV ×3 (01:50→17:30)
[2024-08-20 02:20] LABS: Calprotectin, Fecal 832 ug/g (<=49)
[2024-08-20] MEDS: TYLENOL 650 MG PO ×2 (05:11→13:57)
[2024-08-20 07:35] VITALS: BP 125/86
[2024-08-20] MEDS: VISBIOME 2 CAP PO (07:58)
[2024-08-20] MEDS: PROTONIX 40 MG PO ×2 (07:58→20:43)
[2024-08-20] MEDS: NICODERM TRANSDERMAL 21 MG TRANSDERM (08:01)
[2024-08-20] MEDS: THIAMINE INJECTION 200 MG IV (08:02)
[2024-08-20] MEDS: ZOFRAN 4 MG IV ×2 (08:03→14:10)
[2024-08-20] MEDS: FOLVITE 1 MG PO (08:04)
[2024-08-20] MEDS: DILAUDID 0.5 MG IV ×2 (09:54→17:37)
--- NOTE | 2024-08-20 10:53 | W.PN.HOSP.TC ---
Today's Communication/Plan
-
Monitor after lunch
Continue steroids
Antiemetics as needed
Assessment / Plan
Assessment / Plan
Gen-AAOx3, NAD
HEENT-NC, AT, anicteric, clear oral mm
Neck-supple
CV-reg, no M, +S1/S2
Lungs-clear B/L
Abd-soft, NT, ND
Ext-no edema
Musculoskeletal-no cyanosis, clubbing
Skin-warm and dry
Neuro-grossly non-focal
Psych-calm, cooperative
Acute ulcerative colitis flare -currently on IV steroids. Symptoms slowly improving. I spoke with GI service, recommend discharging on prednisone 40 mg daily for 2 weeks then taper by 5 mg every 5 days.
Persistent nausea -unclear etiology, perhaps GERD related. Improving with Zofran. Discussed with GI service. With discharge on as needed Zofran.
GERD -continue Protonix.
ADHD
- Stable. Hold Adderall acutely.
Anxiety / depression
- Stable. Continue Lexapro
Alcohol Use Disorder -no signs of active alcohol withdrawal currently.
- Patient reports about 4-6 beers daily.
- Also note prior history of childhood seizures - none in many years.
- Monitor for any evidence of withdrawal symptoms. Has not required any benzodiazepines so far.
- Thiamine, folate, MVI replacement.
DVT Prophylaxis: SCDs
Code Status: Full
Anticipated Discharge: Within 24 hours
Subjective/Interval History
-
Date of Service: August 20, 2024
Patient seen and examined. Complaining of nausea this morning but improved with Zofran. Manage to finish breakfast. 3 out of 10 abdominal pain. States diarrhea is slowing down.
Objective Data
-
Vital Signs:
Vital Signs
Temp Pulse Resp BP Pulse Ox
97.7 F 75 16 125/86 98
08/20/24 07:35 08/20/24 07:35 10/02/24 07:35 08/20/24 07:35 08/20/24 07:35
I&O
08/19/24 08/20/24 08/21/24
06:59 06:59 06:59
Intake Total 4167 / 4167 1680 / 1680
Balance 4167 / 4167 1680 / 1680
Review of Systems
-
History Source: Patient
All other systems: Reviewed and negative
--- NOTE | 2024-08-20 11:29 | W.PN.GI.CBS2 ---
Today's Communication / Plan
-
If nausea better and diarrhea improved possible DC today or in AM
Can switch to oral prednisone 40 mg daily for 2 weeks followed by 5 mg taper every week at the time of DC
Assessment / Plan
-
Pt is a 38yo with hx GERD, ADHD, hernia repair and albrecht ulcerative colitis. In reviewing with patient he was diagnosed in 2015 with ER admission 2020 with perianal abscess and was doing well on Lialda 2 tabs daily. He was last seen in 2022 with
colonoscopy in January Altered vascular, erythematous, pseudopolypoid and ulcerated mucosa from sigmoid to cecum (scattered) bx mild active colitis descending and sigmoid. Pt states over last few months he has noted progressive change in bowel
habits with abdominal pain, diarrhea and rectal bleeding. Over the weekend he then noted nausea vomiting along with worsening lower abdominal pain with some loose stools and others all blood. On admission Ct notable for diffuse colitis greatest
descending and transverse with sparing of hepatic flexure and right colon nodular distal ileum with ' backwash ileitis'.
-diffuse colitis on CT
-diarrhea with bleeding
-nausea/vomiting
-hx Ulcerative colitis on Lialda prior to admission
-mild elevated ESR
-leukocytosis
-prior perianal abscess not noted on follow up CT
-GERD with increased symptoms
-wt loss
other med problems:
-ADHD
-hernia repair
-daily ETOH use
PLAN:
etiology of abdominal pain with diarrhea and bleeding related to UC flare
stools studies c-diff neg, crypto and Giardia negative, cultures also neg
Continue IV steroids
cont pain management and antiemetics per medical team
Hepatitis B surface antibody positive from prior vaccination
low residue diet
added PPI for GERD sx and nausea, increased to bid and also added carafate
Nausea may be related to Dilaudid and also steroids
facial flushing may also be related to steroids
compression stocking for DVT prophylaxis
discussed ETOH abstinence and also told him to quit smoking e-cigarettes, monitor for withdrawal
Continue thiamine folic acid
If he does have recurrence of symptoms/flare when off the steroids may need escalation of therapy with Biologics will follow-up with Dr. Frederikc as outpatient
Subjective
Subjective
Date of Service: August 20, 2024
He complains of nausea and also had more diarrhea last night. No rectal bleeding. No fever since 08/17. He does have abdominal pain and better with Dilaudid
His face appeared flushed but no rash noted elsewhere
Objective
Data Reviewed
Laboratory Data:
Laboratory Results
08/19/24 06:16
08/19/24 06:16
Laboratory Results
Phosphorus Cancelled 08/17/24 20:22
Magnesium Cancelled 08/17/24 20:22
Total Bilirubin 0.4 mg/dl (0.2-1.3) 08/17/24 12:27
AST 17 U/L (17-59) 08/17/24 12:27
ALT 21 U/L (0-50) 08/17/24 12:27
Alkaline Phosphatase 80 U/L (38-126) 08/17/24 12:27
Vital Signs and I&O:
Vital Signs
Temp Pulse Resp BP Pulse Ox
97.7 F 75 16 125/86 98
08/20/24 07:35 08/20/24 07:35 08/20/24 07:35 08/20/24 07:35 08/20/24 07:35
I&O
08/19/24 08/20/24 08/21/24
06:59 06:59 06:59
Intake Total 4167 / 4167 1679 / 1679
Balance 4167 / 4167 1679 / 1679
Physical Exam
Physical Exam
Cardiology: Normal Sinus Rhythm
Pulmonary: Clear
GI: Soft, Non Distended, Tender (mild lower abdomen tenderness) and Normal Bowel Sounds
[2024-08-20] MEDS: LEXAPRO 10 MG PO (11:53)
--- NOTE | 2024-08-20 13:35 | CM ---
Reviewed the chart notes. Per notes, discharge later today or tomorrow if nausea and diarrhea improves. CM continues to be available to patient/family and is monitoring medical plan for needs at discharge.
Plan: Discharge home when medically stable. No needs identified at this time.
[2024-08-20 15:15] VITALS: BP 139/86
[2024-08-20] MEDS: COMPAZINE 10 MG IV (17:29)
[2024-08-20] MEDS: VITAMIN B1 100 MG PO (20:43)
[2024-08-20] MEDS: NON-FORMULARY ITEM 4.8 GRAMS PO (20:47)
[2024-08-20 23:07] VITALS: BP 138/95
[2024-08-21] MEDS: SOLU-MEDROL PF 20 MG IV ×3 (01:49→16:59)
[2024-08-21 07:15] VITALS: BP 124/86
[2024-08-21] MEDS: PROTONIX 40 MG PO ×2 (07:26→19:55)
[2024-08-21] MEDS: VISBIOME 2 CAP PO (07:26)
[2024-08-21] MEDS: FOLVITE 1 MG PO (07:27)
[2024-08-21] MEDS: VITAMIN B1 100 MG PO ×2 (07:27→19:55)
[2024-08-21] MEDS: NICODERM TRANSDERMAL 21 MG TRANSDERM (07:27)
[2024-08-21] MEDS: ZOFRAN 4 MG IV ×2 (07:39→19:58)
[2024-08-21] MEDS: TYLENOL 650 MG PO ×2 (07:39→19:55)
[2024-08-21] MEDS: COMPAZINE 10 MG IV (10:31)
[2024-08-21] MEDS: DILAUDID 0.5 MG IV ×2 (10:31→20:58)
--- NOTE | 2024-08-21 10:58 | W.PN.GI.CBS2 ---
Addendum entered and electronically signed by Arely Galvan MD 08/21/24 16:59:
Given his persistent nausea discussed with Dr. Frederick will also add an EGD to flex sig tomorrow
Original Note:
Today's Communication / Plan
-
Flex sig in AM
Assessment / Plan
-
Pt is a 38yo with hx GERD, ADHD, hernia repair and albrecht ulcerative colitis. In reviewing with patient he was diagnosed in 2015 with ER admission 2020 with perianal abscess and was doing well on Lialda 2 tabs daily. He was last seen in 2022 with
colonoscopy in January Altered vascular, erythematous, pseudopolypoid and ulcerated mucosa from sigmoid to cecum (scattered) bx mild active colitis descending and sigmoid. Pt states over last few months he has noted progressive change in bowel
habits with abdominal pain, diarrhea and rectal bleeding. Over the weekend he then noted nausea vomiting along with worsening lower abdominal pain with some loose stools and others all blood. On admission Ct notable for diffuse colitis greatest
descending and transverse with sparing of hepatic flexure and right colon nodular distal ileum with ' backwash ileitis'.
-diffuse colitis on CT
-diarrhea with bleeding
-nausea/vomiting
-hx Ulcerative colitis on Lialda prior to admission
-mild elevated ESR
-leukocytosis
-prior perianal abscess not noted on follow up CT
-GERD with increased symptoms
-wt loss
other med problems:
-ADHD
-hernia repair
-daily ETOH use
PLAN:
etiology of abdominal pain with diarrhea and bleeding related to UC flare
stools studies c-diff neg, crypto and Giardia negative, cultures also neg, elevated CRP, elevated fecal macey
Continue IV steroids
cont pain management and antiemetics per medical team
Hepatitis B surface antibody positive from prior vaccination
Low residue diet as tolerated
added PPI for GERD sx and nausea, increased to bid and also added carafate
Nausea may be related to Dilaudid and also steroids
facial flushing may also be related to steroids
compression stocking for DVT prophylaxis
discussed ETOH abstinence and also told him to quit smoking e-cigarettes, monitor for withdrawal
Continue thiamine folic acid
08/21/24 given ongoing symptoms despite being on IV steroid today is day 4 with Lialda 4.8 g daily and probiotics will add hydrocortisone enema. had a lengthy discussion with patient and his at bedside since he is not responding to steroids may
need to consider starting him on Remicade as inpatient. QuantiFERON gold test is pending, will get PPD, hepatitis serologies are negative (HBV s Ab positive from prior vaccination) and will also get a chest x-ray. Will also schedule him for
sigmoidoscopy tomorrow to assess disease activity and also rule out CMV. Patient initially was very hesitant to start Biologics but I did explain to him that if he does not respond in the next day or 2 he may be steroid refractory and will need
Biologics doubt mesalamine hypersensitivity.
Subjective
Subjective
Date of Service: August 21, 2024
Still having symptoms of diarrhea had about 7 bowel movements yesterday with some mucus but no blood in the stool he is afebrile
Nausea has improved
Objective
Data Reviewed
Laboratory Data:
Laboratory Results
08/19/24 06:16
08/19/24 06:16
Laboratory Results
Phosphorus Cancelled 08/17/24 20:22
Magnesium Cancelled 08/17/24 20:22
Total Bilirubin 0.4 mg/dl (0.2-1.3) 08/17/24 12:27
AST 17 U/L (17-59) 08/17/24 12:27
ALT 21 U/L (0-50) 08/17/24 12:27
Alkaline Phosphatase 80 U/L (38-126) 08/17/24 12:27
Vital Signs and I&O:
Vital Signs
Temp Pulse Resp BP Pulse Ox
97.8 F 75 16 124/86 98
08/21/24 07:15 08/21/24 07:15 08/21/24 07:15 08/21/24 07:15 08/21/24 07:15
I&O
08/20/24 08/21/24 08/22/24
06:59 06:59 06:59
Intake Total 1680 / 1680 480 / 480
Balance 1680 / 1680 480 / 480
Laboratory Tests
08/17/24 08/18/24 08/19/24
22:42 10:36 06:16
Stool Calprotectin 832 H
Hep Bs Antigen Negative
Hep Bs Antibody Positive
Hep B Core Total Ab Negative
Hep B Core IgM Ab Negative
Hepatitis C Antibody Negative
SARS-CoV-2 Antigen Negative
Laboratory Tests
08/18/24
06:21
ESR 22 H
C-Reactive Protein 151.20 H
Physical Exam
Physical Exam
Cardiology: Normal Sinus Rhythm
Pulmonary: Clear
GI: Soft, Non Distended and Tender (lower abdomen tenderness more in LLQ)
--- NOTE | 2024-08-21 11:11 | W.PN.HOSP.TC ---
Today's Communication/Plan
-
As needed Ativan
Sigmoidoscopy tomorrow
Assessment / Plan
Assessment / Plan
Gen-AAOx3, NAD
HEENT-NC, AT, anicteric, clear oral mm
Neck-supple
CV-reg, no M, +S1/S2
Lungs-clear B/L
Abd-soft, NT, ND
Ext-no edema
Musculoskeletal-no cyanosis, clubbing
Skin-warm and dry
Neuro-grossly non-focal
Psych-calm, cooperative
Acute ulcerative colitis flare -currently on IV steroids. Still with loose stools. Spoke with GI service, plan for sigmoidoscopy tomorrow. Continue IV steroids.
Persistent nausea -unclear etiology, perhaps GERD related. Improving with Zofran. Protonix increased to twice daily. Ordered as needed sucralfate but has not received any doses so far.
GERD -continue Protonix.
ADHD
- Stable. Hold Adderall acutely.
Anxiety / depression
- Stable. Continue Lexapro. Patient requesting as needed Ativan, order placed.
Alcohol Use Disorder -no signs of active alcohol withdrawal currently.
- Patient reports about 4-6 beers daily.
- Also note prior history of childhood seizures - none in many years.
- Monitor for any evidence of withdrawal symptoms. Has not required any benzodiazepines so far.
- Thiamine, folate, MVI replacement.
DVT Prophylaxis: SCDs
Code Status: Full
Anticipated Discharge: 24 - 48 hours
Subjective/Interval History
-
Date of Service: August 21, 2024
Patient seen and examined. Complaining of anxiety. Still with abdominal pain and loose stools. Nausea improving.
Objective Data
-
Vital Signs:
Vital Signs
Temp Pulse Resp BP Pulse Ox
97.8 F 75 16 124/86 98
08/21/24 07:15 08/21/24 07:15 08/21/24 07:15 08/21/24 07:15 08/21/24 07:15
I&O
08/20/24 08/21/24 08/22/24
06:59 06:59 06:59
Intake Total 1680 / 1680 480 / 480
Balance 1680 / 1680 480 / 480
Review of Systems
-
History Source: Patient
All other systems: Reviewed and negative
[2024-08-21] MEDS: ATIVAN 0.5 MG PO (11:23)
[2024-08-21] MEDS: LEXAPRO 10 MG PO (11:23)
[2024-08-21] MEDS: NON-FORMULARY ITEM 4.8 GRAMS PO (11:24)
--- NOTE | 2024-08-21 11:29 | CM ---
Reviewed the chart notes. Per notes, plan for sigmoidoscopy tomorrow. Patient now on clear liquid diet. CM continues to be available to patient/family and is monitoring medical plan for needs at discharge.
Plan: Discharge to home when medically stable. No needs anticipated.
[2024-08-21] MEDS: PPD5TEST 5 UNITS INTRADERMA (13:35)
[2024-08-21 15:50] VITALS: BP 135/85
[2024-08-21] MEDS: COLOCORT/CORTENEMA 60 ML RECTAL (19:57)
[2024-08-21] MEDS: MELATONIN 5 MG PO (20:58)
[2024-08-21 23:16] VITALS: BP 127/83
[2024-08-22] VITALS (15 sets, daily range): BP systolic 19–158; BP diastolic 74–94
[2024-08-22 00:23] LABS: Quantiferon Mitogen minus NIL 2.32 IU/mL; Quantiferon TB Gold Plus Negative (Negative)
[2024-08-22] MEDS: SOLU-MEDROL PF 20 MG IV ×3 (01:15→17:45)
[2024-08-22] MEDS: VISBIOME 2 CAP PO (10:21)
[2024-08-22] MEDS: FOLVITE 1 MG PO (10:21)
[2024-08-22] MEDS: NICODERM TRANSDERMAL 21 MG TRANSDERM (10:21)
[2024-08-22] MEDS: CHECK PPD SITE 1 CHECK INTRADERMA (10:22)
[2024-08-22] MEDS: VITAMIN B1 100 MG PO ×2 (10:22→19:56)
[2024-08-22] MEDS: PROTONIX 40 MG PO (10:22)
--- NOTE | 2024-08-22 10:57 | W.PN.HOSP.TC ---
Today's Communication/Plan
-
Colorectal surgery consult
Increase dose of Ativan as needed
Add Lovenox
Remicade per GI service
Decrease Protonix to daily
Assessment / Plan
Assessment / Plan
Gen-AAOx3, NAD
HEENT-NC, AT, anicteric, clear oral mm
Neck-supple
CV-reg, no M, +S1/S2
Lungs-clear B/L
Abd-soft, NT, ND
Ext-no edema
Musculoskeletal-no cyanosis, clubbing
Skin-warm and dry
Neuro-grossly non-focal
Psych-calm, cooperative
Acute ulcerative colitis flare -currently on IV steroids. IV Remicade initiated by GI service. Colorectal surgery consult.
Sigmoidoscopy 08/22 showed severe ulcerative colitis involving the transverse and descending colon with deep ulcerations and blood and purulent material. Appeared worse compared to prior. Mild ulcerative colitis in the rectum and sigmoid. Biopsies
were done.
Persistent nausea -unclear etiology, perhaps GERD related. Improving with Zofran. Protonix increased to twice daily. Ordered as needed sucralfate but has not received any doses so far.
GERD -continue Protonix. EGD done 08/22 showed 2 cm hiatal hernia. Diffuse mild mucosal changes and altered texture throughout the esophagus. Biopsy performed for possible eosinophilic esophagitis. GI service recommends once daily Protonix.
ADHD
- Stable. Hold Adderall acutely.
Anxiety / depression
- Stable. Continue Lexapro. Patient requesting an increase in dose of Ativan, will order 3 times daily as needed. Recommend not discharging on Ativan.
Alcohol Use Disorder -no signs of active alcohol withdrawal currently.
- Patient reports about 4-6 beers daily.
- Also note prior history of childhood seizures - none in many years.
- Monitor for any evidence of withdrawal symptoms. Has not required any benzodiazepines so far.
- Thiamine, folate, MVI replacement.
DVT Prophylaxis: Lovenox added.
Code Status: Full
Anticipated Discharge: > 48 hours
Subjective/Interval History
-
Date of Service: August 22, 2024
Patient seen and examined. Complaining of anxiety.
Objective Data
-
Labs:
Laboratory Results
08/22/24
08:29
Sodium Pending
Potassium Pending
Chloride Pending
Carbon Dioxide Pending
BUN Pending
Creatinine Pending
Glucose Pending
Calcium Pending
Total Bilirubin Pending
AST Pending
ALT Pending
Alkaline Phosphatase Pending
Vital Signs:
Vital Signs
Temp Pulse Resp BP Pulse Ox
98.8 F 76 20 136/93 96
08/22/24 09:33 08/22/24 10:03 08/22/24 10:03 08/22/24 10:03 08/22/24 10:03
I&O
08/21/24 08/22/24 08/23/24
06:59 06:59 06:59
Intake Total 480 / 480 1200 / 1200
Balance 480 / 480 1200 / 1200
Review of Systems
-
History Source: Patient
All other systems: Reviewed and negative
[2024-08-22 11:36] LABS: ALT (SGPT) 16 U/L (0-50); AST (SGOT) 17 U/L (17-59); Albumin 3.4 g/dl (3.5-5.0); Alkaline Phosphatase 66 U/L (38-126); Blood Urea Nitrogen 11 mg/dl (9-20); Calcium 9.2 mg/dl (8.4-10.2); Carbon Dioxide 31 mmol/L (22-30); Chloride 97 mmol/L (98-107); Direct Bilirubin 0.2 mg/dl (0.0-0.4); Estimated Creatinine Clearance > 125 ml/min; Glucose 107 mg/dl (70-99); Potassium 3.6 mmol/L (3.5-5.1); Sodium 141 mmol/L (135-145); Total Bilirubin 0.4 mg/dl (0.2-1.3); Total Protein 5.9 g/dl (6.3-8.2); eGFR > 60.00
[2024-08-22] MEDS: BENADRYL 50 MG IV (12:11)
[2024-08-22] MEDS: LEXAPRO 10 MG PO (12:11)
[2024-08-22] MEDS: TYLENOL 650 MG PO (12:11)
[2024-08-22] MEDS: NON-FORMULARY ITEM 4.8 GRAMS PO (12:13)
[2024-08-22] MEDS: REMICADE 250 MG IV ×2 (13:30→13:49)
--- NOTE | 2024-08-22 13:47 | CON.CRS ---
Consultation
-
Date/Time Consultation Requested: 08/22/2024, 9:30am
Date/Time Consultation Performed: 08/22/2024, 11:30
Requesting Provider: Peg Frederick DO
Performing Provider: Edwin Barton MD
Reason for Consultation: ulcerative colitis
Medical History
-
Chief Complaint: abdominal pain
History of Present Illness:
38-year-old male presents to the emergency room on 08/18/2024 waning of abdominal pain. He was diagnosed with ulcerative pancolitis in 2015 and has a history of a perianal abscess in 2020 status post incision and drainage by Dr. Howe. He he has
been doing well on Lialda per gastroenterology but started flaring about a month ago. On CT he had diffuse colitis greater involvement of the descending colon and transverse colon, relatively sparing the hepatic flexure and right colon. He
underwent an EGD and sigmoidoscopy by Dr. Frederick today. The sigmoidoscopy showed mild ulcerative colitis in the rectum and sigmoid which has worsened since last examined patient he also has severe ulcerative colitis in descending and transverse colon
with deep ulcerations and blood with. Purulent material from the deep ulcers.
The patient states he feels nontender right now. He is unsure if he has been hospitalized for this problem in the past. Usually his bowel movements are twice a day at home with no bleeding but over the past month have been upwards of 15 times a
day and in smaller amounts. He did have blood before his hospitalization and had blood again this morning in his stools. He describes cramping-like occasional pain. He has not been that hungry. He states he feels improved since when he was
admitted. We have been consulted for further surgical opinion.
Past Medical History
Past Medical History: GERD, HTN, Psychiatric (ADHD, panic attacks) and Other ( ulcerative pancolitis, 2020 perianal abscess)
Past Surgical History: Hernia Repair (inguinal hernia repair)
Social History
Tobacco: Other (e cigarette use)
Alcohol: Daily
Drug: None
Living: With Family
Family History
Family History: Reviewed & Not Pertinent
Allergies / Home Medications
Allergy/AdvReac Type Severity Reaction Status Date / Time
cefaclor [Cefaclor] Allergy Unknown Verified 08/17/24 12:08
phenobarbital Allergy Unknown Verified 08/17/24 12:08
phenytoin Allergy Unknown Verified 08/17/24 12:08
�Medication �Instructions �Recorded �Confirmed �Type
acetaminophen 500 mg tablet 1,000 mg PO Q6HPRN PRN MILD PAIN 03/10/21 08/17/24 History
(Tylenol Extra Strength)
cetirizine 10 mg tablet 10 mg PO DAILY@1200 03/10/21 08/17/24 History
cholecalciferol (vitamin D3) 50 2,000 units PO DAILY@119903/10/21 08/17/24 History
mcg (2,000 unit) tablet
dextroamphetamine-amphetamine 10 10 mg PO BID 03/10/21 08/17/24 History
mg tablet
escitalopram oxalate 10 mg tablet 10 mg PO DAILY@1200 03/10/21 08/17/24 History
mesalamine 1.2 gram tablet,delayed 2.4 g PO DAILY@119903/10/21 08/17/24 History
release (Lialda)
multivitamin with folic acid 400 1 tab PO DAILY@1200 03/10/21 08/17/24 History
mcg tablet (Tab-A-Mali)
fluticasone propionate 50 1 spray intranasal DAILYPRN PRN 08/17/24 08/17/24 History
mcg/actuation nasal conjestion
spray,suspension
Lactobac/Bifidobac [Visbiome] 2 cap PO DAILY #60 caps 08/20/24 Rx
folic acid 1 mg tablet 1 mg PO DAILY #30 tabs 08/20/24 Rx
ondansetron 4 mg disintegrating 4 mg PO Q6H PRN nausea and 08/20/24 Rx
tablet vomiting #20 tabs
pantoprazole 40 mg tablet,delayed 40 mg PO BID #60 tabs 08/20/24 Rx
release
prednisone 5 mg tablet 5 mg PO DIRECTED #308 tabs 08/20/24 Rx
sucralfate 1 gram tablet 1 g PO ACHS #120 tabs 08/20/24 Rx
thiamine HCl (vitamin B1) 100 mg 100 mg PO BID #60 tabs 08/20/24 Rx
tablet
Review of Systems
-
History Source: Patient
Abdomen/GI: Abdominal Pain, Nausea, Vomiting and Bloody Stools
A 10 point review of systems was completed, and was negative except as per HPI.
Physical Exam
Vital Signs
Temp 98.8 F 08/22/24 09:33
Pulse 76 08/22/24 10:03
Resp Rate 20 08/22/24 10:03
Blood pressure 136/93 08/22/24 10:03
SaO2 97 08/22/24 13:17
Body Mass Index (BMI) 24.9
Lab Results / Allergies
08/19/24 06:16
08/22/24 08:29
WBC 15.6 10^3/uL (4.8-10.8) H 08/19/24 06:16
Hgb 12.4 g/dL (13.0-18.0) L 08/19/24 06:16
Hct 35.0 % (39.0-52.0) L 08/19/24 06:16
Plt Count 369 10^3/uL (130-400) 08/19/24 06:16
Abs Immat Gran (auto) 0.1 10^3/uL (0-0.05) H 08/17/24 12:27
Neutrophils % 69.7 % (42.2-75.2) 08/17/24 12:27
Allergy/AdvReac Type Severity Reaction Status Date / Time
cefaclor [Cefaclor] Allergy Unknown Verified 08/17/24 12:08
phenobarbital Allergy Unknown Verified 08/17/24 12:08
phenytoin Allergy Unknown Verified 08/17/24 12:08
Physical Exam
General: Well Developed, Well Nourished and No Apparent Distress
GI: Soft, Non Tender and Non Distended
Skin: Warm and Dry
Neuro: AO x 3
Psych: Calm
Data Reviewed
-
CT Scan: Image Personally Visualized and interpreted, Report Reviewed by me and Discussed with Patient
Medical Tests (Nuc Med, Echo etc): Report Reviewed by me
Labs: Labs Reviewed by me, Discussed with Physician and Discussed with Patient
Old Records: Reviewed
Assessment / Plan
-
Assessment: 38 year old male with a history of ulcerative colitis since 2015, presents to the ER on 08/18 with a month worth of abdominal pain/bloody stools/nausea and vomiting with worsening colitis found on flex sig today
Plan:
-Surgery was discussed with the patient which may entail a pouch creation versus total colectomy with ileostomy. No plans for surgery at this time but patient understands if he does not improve with Biologics, he may need this in the future.
-Will need to watch nutrition
-Ulcerative colitis management per GI. Dr. Frederick attempting to get Remicade on today.
-Will follow exam closely
--- NOTE | 2024-08-22 14:20 | PTCARENOTE ---
Remicade infusion started per IV titration protocol. Infusing through newly placed 20G Iv in the R FA. Q15 min signs with each titration as documented.
--- NOTE | 2024-08-22 16:15 | PTCARENOTE ---
Remicade infusion completed. VS obtained q15 min during infusion as documented in the MAr. Pt tolerated with no apparent adverse reaction.
--- NOTE | 2024-08-22 16:20 | CM ---
met with patient at bedside.patient with worsening UC per sigmoidoscopy.future surgery discussed with patient if no improvement is made.gi ordering remlennyde franklyn. Plan:dc home with no needs.
[2024-08-22] MEDS: LOVENOX 40 MG SC (17:45)
[2024-08-22] MEDS: ZOFRAN 4 MG IV (19:56)
[2024-08-22] MEDS: ATIVAN 0.5 MG PO ×2 (19:57→23:10)
--- NOTE | 2024-08-22 20:00 | PTCARENOTE ---
Patient vomited immediately after taking Ativan. He said he felt better and wanted to wait a few hours to take it again.
[2024-08-22] MEDS: COLOCORT/CORTENEMA 60 ML RECTAL (21:33)
[2024-08-22] MEDS: COMPAZINE 10 MG IV (23:00)
[2024-08-22] MEDS: FLUSH (NSS) 2 FLUSH IV (23:01)
[2024-08-23] MEDS: SOLU-MEDROL PF 20 MG IV ×3 (00:57→17:29)
[2024-08-23] MEDS: FLUSH (NSS) 2 FLUSH IV (01:00)
[2024-08-23 06:58] LABS: % Basophils 0.4 % (0-2); % Immature Granulocytes 0.8 % (0-0.5); % Lymphocytes 13.4 % (20.5-51.1); % Monocytes 11.8 % (1.7-9.3); % Neutrophils 73.6 % (42.2-75.2); Absolute Immature Granulocytes 0.1 10^3/uL (0-0.05); Absolute Lymphocytes 1.5 10^3/uL (1.2-3.4); Absolute Monocytes 1.3 10^3/uL (0.1-0.6); Hematocrit 37.5 % (39.0-52.0); Hemoglobin 13.1 g/dL (13.0-18.0); Mean Corp Hgb Conc. 34.9 g/dL (33.0-37.0); Mean Corpuscular Hgb 29.4 pg (27.0-31.0); Mean Corpuscular Volume 84.1 fL (80.0-94.0); Mean Platelet Volume 10.4 fL (7.4-10.4); Nucleated Red Blood Cells % 0 % (-); Platelet Count 476 10^3/uL (130-400); Red Blood Cell Count 4.46 10^6/uL (4.70-6.10); White Blood Cell Count 10.8 10^3/uL (4.8-10.8)
[2024-08-23 07:50] VITALS: BP 129/91
--- NOTE | 2024-08-23 08:36 | W.PN.HOSP.TC ---
Today's Communication/Plan
-
Continue current care
Assessment / Plan
Assessment / Plan
Gen-AAOx3, NAD
HEENT-NC, AT, anicteric, clear oral mm
Neck-supple
CV-reg, no M, +S1/S2
Lungs-clear B/L
Abd-soft, NT, ND
Ext-no edema
Musculoskeletal-no cyanosis, clubbing
Skin-warm and dry
Neuro-grossly non-focal
Psych-calm, cooperative
Acute ulcerative colitis flare -currently on IV steroids. IV Remicade initiated by GI service. Colorectal surgery consulted. Tolerating full liquids.
Sigmoidoscopy 08/22 showed severe ulcerative colitis involving the transverse and descending colon with deep ulcerations and blood and purulent material. Appeared worse compared to prior. Mild ulcerative colitis in the rectum and sigmoid. Biopsies
were done.
Persistent nausea -unclear etiology, perhaps GERD related. Nausea resolved. Protonix increased to twice daily. Ordered as needed sucralfate but has not received any doses so far.
GERD -continue Protonix. EGD done 08/22 showed 2 cm hiatal hernia. Diffuse mild mucosal changes and altered texture throughout the esophagus. Biopsy performed for possible eosinophilic esophagitis. GI service recommends once daily Protonix.
ADHD
- Stable. Hold Adderall acutely.
Anxiety / depression
- Stable. Continue Lexapro. Patient requesting an increase in dose of Ativan, will order 3 times daily as needed. Recommend not discharging on Ativan.
Alcohol Use Disorder -no signs of active alcohol withdrawal currently.
- Patient reports about 4-6 beers daily.
- Also note prior history of childhood seizures - none in many years.
- Monitor for any evidence of withdrawal symptoms. Has not required any benzodiazepines so far.
- Thiamine, folate, MVI replacement.
DVT Prophylaxis: Lovenox.
Code Status: Full
Anticipated Discharge: > 48 hours
Subjective/Interval History
-
Date of Service: August 23, 2024
Patient seen and examined. Denies abdominal pain currently. Still with loose stools.
Objective Data
-
Labs:
Laboratory Results
08/23/24
06:29
WBC 10.8
Hgb 13.1
Hct 37.5 L
Plt Count 476 H D
Vital Signs:
Vital Signs
Temp Pulse Resp BP Pulse Ox
97.6 F 61 16 129/91 99
08/23/24 07:50 08/23/24 07:50 08/23/24 07:50 08/23/24 07:50 08/23/24 07:50
I&O
08/22/24 08/23/24 08/24/24
06:59 06:59 06:59
Intake Total 1200 / 1200 930 / 930
Balance 1200 / 1200 930 / 930
Review of Systems
-
History Source: Patient
All other systems: Reviewed and negative
--- NOTE | 2024-08-23 08:58 | W.PN.GI.CBS2 ---
Today's Communication / Plan
-
-- Trend CRP, track number of bowel movements within a 24-hour period and if there is any blood in the consistency of them
-- Advance diet as tolerated. Up to the patient
Assessment / Plan
-
Pt is a 38yo with hx GERD, ADHD, hernia repair and albrecht ulcerative colitis. In reviewing with patient he was diagnosed in 2015 with ER admission 2020 with perianal abscess and was doing well on Lialda 2 tabs daily. He was last seen in 2022 with
colonoscopy in January Altered vascular, erythematous, pseudopolypoid and ulcerated mucosa from sigmoid to cecum (scattered) bx mild active colitis descending and sigmoid. Pt states over last few months he has noted progressive change in bowel
habits with abdominal pain, diarrhea and rectal bleeding. Over the weekend he then noted nausea vomiting along with worsening lower abdominal pain with some loose stools and others all blood. On admission Ct notable for diffuse colitis greatest
descending and transverse with sparing of hepatic flexure and right colon nodular distal ileum with ' backwash ileitis'.
-diffuse colitis on CT
-diarrhea with bleeding
-nausea/vomiting
-hx Ulcerative colitis on Lialda prior to admission
-mild elevated ESR
-leukocytosis
-prior perianal abscess not noted on follow up CT
-GERD with increased symptoms
-wt loss
other med problems:
-ADHD
-hernia repair
-daily ETOH use
PLAN:
etiology of abdominal pain with diarrhea and bleeding related to UC flare
stools studies c-diff neg, crypto and Giardia negative, cultures also neg, elevated CRP, elevated fecal macey
Continue IV steroids
cont pain management and antiemetics per medical team
Hepatitis B surface antibody positive from prior vaccination
Low residue diet as tolerated
added PPI for GERD sx and nausea, increased to bid and also added carafate
Nausea may be related to Dilaudid and also steroids
facial flushing may also be related to steroids
compression stocking for DVT prophylaxis
discussed ETOH abstinence and also told him to quit smoking e-cigarettes, monitor for withdrawal
Continue thiamine folic acid
08/21/24 given ongoing symptoms despite being on IV steroid today is day 4 with Lialda 4.8 g daily and probiotics will add hydrocortisone enema. had a lengthy discussion with patient and his at bedside since he is not responding to steroids may
need to consider starting him on Remicade as inpatient. QuantiFERON gold test is pending, will get PPD, hepatitis serologies are negative (HBV s Ab positive from prior vaccination) and will also get a chest x-ray. Will also schedule him for
sigmoidoscopy tomorrow to assess disease activity and also rule out CMV. Patient initially was very hesitant to start Biologics but I did explain to him that if he does not respond in the next day or 2 he may be steroid refractory and will need
Biologics doubt mesalamine hypersensitivity.
08/22/24 -flexible sigmoidoscopy to the transverse -rectum and distal sigmoid were mild but descending and transverse colon were significantly inflamed with deep ulcerations. Biopsies pending including CMV.
-- Gave first dose of Remicade 10 mg/kg
-- Continue IV steroids, Chin enemas at night, diet as tolerated
08/23/24 -tolerated Remicade well yesterday, 1 loose bowel movement this morning. Possibly some mild improvement. No significant abdominal pain. Appreciate colorectal consult.
Subjective
Subjective
Date of Service: August 23, 2024
No problems after receiving Remicade last night. Did have a few hours without stools last night. Had 1 bowel movement that was loose this morning. No significant abdominal pain. Tolerating liquids without issue.
Objective
Data Reviewed
Laboratory Data:
Laboratory Results
08/23/24 06:29
08/22/24 08:29
Laboratory Results
Phosphorus Cancelled 08/17/24 20:22
Magnesium Cancelled 08/17/24 20:22
Total Bilirubin 0.4 mg/dl (0.2-1.3) 08/22/24 08:29
AST 17 U/L (17-59) 08/22/24 08:29
ALT 16 U/L (0-50) 08/22/24 08:29
Alkaline Phosphatase 66 U/L (38-126) 08/22/24 08:29
Vital Signs and I&O:
Vital Signs
Temp Pulse Resp BP Pulse Ox
97.6 F 61 16 129/91 99
08/23/24 07:50 08/23/24 07:50 08/23/24 07:50 08/23/24 07:50 08/23/24 07:50
I&O
08/22/24 08/23/24 08/24/24
06:59 06:59 06:59
Intake Total 1200 / 1200 930 / 930
Balance 1200 / 1200 930 / 930
Physical Exam
Physical Exam
HEENT: Anicteric
Cardiology: Normal Sinus Rhythm
GI: Soft and Non Distended
Neuro: Non Focal
[2024-08-23] MEDS: CARAFATE SUSPENSION 1 GM PO (09:27)
[2024-08-23] MEDS: COMPAZINE 10 MG IV ×2 (09:27→17:31)
[2024-08-23] MEDS: FOLVITE 1 MG PO (09:28)
[2024-08-23] MEDS: PROTONIX 40 MG PO (09:28)
[2024-08-23] MEDS: VISBIOME 2 CAP PO (09:28)
[2024-08-23] MEDS: CHECK PPD SITE 1 CHECK INTRADERMA (09:28)
[2024-08-23] MEDS: VITAMIN B1 100 MG PO ×2 (09:28→21:25)
[2024-08-23] MEDS: NICODERM TRANSDERMAL 21 MG TRANSDERM (09:28)
[2024-08-23] MEDS: ATIVAN 0.5 MG PO ×2 (10:23→23:33)
--- NOTE | 2024-08-23 10:34 | W.PN.CRS1 ---
Today's Communication / Plan
-
will follow exam, continue fulls
Assessment/Plan
-
Assessment: 38 year old male with a history of ulcerative colitis since 2015, presents to the ER on 08/18 with a month worth of abdominal pain/bloody stools/nausea and vomiting with worsening colitis found on flex sig today
08/22 - Remicaide
Vitals normal. WBC 10.8 (15.6)
-Continue on fulls with Ensure. If cannot tolerate a diet, may need TPN in the future.
-Will continue to monitor exam closely.
-Possible surgery in the future if no improvement.
-CRP trend.
Subjective Data
Subjective Data
Date of Service: August 23, 2024
Patient state he feels 'alright'. He is about the same from yesterday. He was nauseous this AM and vomited once. He is having a lot of bowel movements.
Objective Data
-
Vital Signs
Temp Pulse Resp BP Pulse Ox
97.6 F 61 16 129/91 99
08/23/24 07:50 08/23/24 07:50 08/23/24 07:50 08/23/24 07:50 08/23/24 07:50
Intake & Output
08/22/24 08/23/24 08/24/24
06:59 06:59 06:59
Intake Total 1200 / 1200 930 / 930
Balance 1200 / 1200 930 / 930
Intake:
Oral fluids 1200 / 1200 680 / 680
IV fluids (Total) 250 / 250
Other:
Number of approximated MODERATE 3 3
amounts of urine
Number of immeasurable emeses? 1
Number of unmeasured liquid
stools
Rectum 1
Lab Results
08/23/24 06:29
08/22/24 08:29
Physical Exam
-
General: No Acute Distress and AOx3
Abdomen: Soft, Non Distended and Non Tender
Skin: Warm and Dry
[2024-08-23] MEDS: LEXAPRO 10 MG PO (12:58)
[2024-08-23] MEDS: NON-FORMULARY ITEM 4.8 GRAMS PO (12:59)
[2024-08-23] MEDS: ZOFRAN 4 MG IV (13:00)
[2024-08-23 15:50] VITALS: BP 126/87
[2024-08-23] MEDS: LOVENOX 40 MG SC (17:31)
[2024-08-23] MEDS: COLOCORT/CORTENEMA 60 ML RECTAL (22:15)
[2024-08-23 23:56] VITALS: BP 132/86
[2024-08-24] MEDS: SOLU-MEDROL PF 20 MG IV ×3 (02:03→17:24)
[2024-08-24] MEDS: FLUSH (NSS) 2 FLUSH IV (02:05)
[2024-08-24 07:55] VITALS: BP 128/84
[2024-08-24] MEDS: ZOFRAN 4 MG IV ×2 (08:43→17:41)
[2024-08-24] MEDS: PROTONIX 40 MG PO (08:43)
[2024-08-24] MEDS: VISBIOME 2 CAP PO (08:43)
[2024-08-24] MEDS: FOLVITE 1 MG PO (08:43)
[2024-08-24] MEDS: NICODERM TRANSDERMAL 21 MG TRANSDERM (08:43)
[2024-08-24] MEDS: VITAMIN B1 100 MG PO ×2 (08:43→20:11)
[2024-08-24] MEDS: CHECK PPD SITE 1 CHECK INTRADERMA ×2 (08:44→08:45)
--- NOTE | 2024-08-24 09:52 | W.PN.GI.CBS2 ---
Today's Communication / Plan
-
-- CT enterography
-- I did fill out patient's disability for work. He is my outpatient so this is appropriate
Assessment / Plan
-
Pt is a 38yo with hx GERD, ADHD, hernia repair and albrecht ulcerative colitis. In reviewing with patient he was diagnosed in 2015 with ER admission 2020 with perianal abscess and was doing well on Lialda 2 tabs daily. He was last seen in 2022 with
colonoscopy in January Altered vascular, erythematous, pseudopolypoid and ulcerated mucosa from sigmoid to cecum (scattered) bx mild active colitis descending and sigmoid. Pt states over last few months he has noted progressive change in bowel
habits with abdominal pain, diarrhea and rectal bleeding. Over the weekend he then noted nausea vomiting along with worsening lower abdominal pain with some loose stools and others all blood. On admission Ct notable for diffuse colitis greatest
descending and transverse with sparing of hepatic flexure and right colon nodular distal ileum with ' backwash ileitis'.
-diffuse colitis on CT
-diarrhea with bleeding
-nausea/vomiting
-hx Ulcerative colitis on Lialda prior to admission
-mild elevated ESR
-leukocytosis
-prior perianal abscess not noted on follow up CT
-GERD with increased symptoms
-wt loss
other med problems:
-ADHD
-hernia repair
-daily ETOH use
PLAN:
etiology of abdominal pain with diarrhea and bleeding related to UC flare
stools studies c-diff neg, crypto and Giardia negative, cultures also neg, elevated CRP, elevated fecal macey
Continue IV steroids
cont pain management and antiemetics per medical team
Hepatitis B surface antibody positive from prior vaccination
Low residue diet as tolerated
added PPI for GERD sx and nausea, increased to bid and also added carafate
Nausea may be related to Dilaudid and also steroids
facial flushing may also be related to steroids
compression stocking for DVT prophylaxis
discussed ETOH abstinence and also told him to quit smoking e-cigarettes, monitor for withdrawal
Continue thiamine folic acid
08/21/24 given ongoing symptoms despite being on IV steroid today is day 4 with Lialda 4.8 g daily and probiotics will add hydrocortisone enema. had a lengthy discussion with patient and his at bedside since he is not responding to steroids may
need to consider starting him on Remicade as inpatient. QuantiFERON gold test is pending, will get PPD, hepatitis serologies are negative (HBV s Ab positive from prior vaccination) and will also get a chest x-ray. Will also schedule him for
sigmoidoscopy tomorrow to assess disease activity and also rule out CMV. Patient initially was very hesitant to start Biologics but I did explain to him that if he does not respond in the next day or 2 he may be steroid refractory and will need
Biologics doubt mesalamine hypersensitivity.
08/22/24 -flexible sigmoidoscopy to the transverse -rectum and distal sigmoid were mild but descending and transverse colon were significantly inflamed with deep ulcerations. Biopsies pending including CMV.
-- Gave first dose of Remicade 10 mg/kg
-- Continue IV steroids, Chin enemas at night, diet as tolerated
08/23/24 -tolerated Remicade well yesterday, 1 loose bowel movement this morning. Possibly some mild improvement. No significant abdominal pain. Appreciate colorectal consult.
08/24/2024 -no significant improvement, continues IV steroids, received Remicade on 08/22/2024
-- In discussion with Dr. Barton with surgery we were discussing the possibility of Crohn's disease which is possible. He had a perirectal abscess in 2020. His initial colonoscopy did show classic ulcerative colitis in 2016 with Martinez 2 throughout
the colon with normal TI normal biopsies. CT scan this admission shows some possible thickening in the distal ileum.
-- Will proceed with enterography to further review the small bowel to help with any surgical planning that may be in the near future. MRIs down so we will proceed with CT enterography
-- Discussed with patient if he is not improving by tomorrow may consider inpatient [facility]
-- Filled out patient's disability paperwork
Subjective
Subjective
Date of Service: August 24, 2024
No significant improvement since yesterday. Still having multiple bloody/watery bowel movements. Continued nausea at times. No vomiting. Did try more solid foods yesterday.
Objective
Data Reviewed
Laboratory Data:
Laboratory Results
08/23/24 06:29
08/22/24 08:29
Laboratory Results
Phosphorus Cancelled 08/17/24 20:22
Magnesium Cancelled 08/17/24 20:22
Total Bilirubin 0.4 mg/dl (0.2-1.3) 08/22/24 08:29
AST 17 U/L (17-59) 08/22/24 08:29
ALT 16 U/L (0-50) 08/22/24 08:29
Alkaline Phosphatase 66 U/L (38-126) 08/22/24 08:29
Vital Signs and I&O:
Vital Signs
Temp Pulse Resp BP Pulse Ox
97.8 F 63 16 128/84 95
08/24/24 07:55 08/24/24 07:55 08/24/24 07:55 08/24/24 07:55 08/24/24 07:55
I&O
08/23/24 08/24/24 08/25/24
06:59 06:59 06:59
Intake Total 930 / 930 1680 / 1680
Balance 930 / 930 1680 / 1680
Physical Exam
Physical Exam
HEENT: Anicteric
Cardiology: Normal Sinus Rhythm
GI: Soft
Neuro: Non Focal
[2024-08-24] MEDS: COMPAZINE 10 MG IV ×2 (11:10→20:43)
[2024-08-24] MEDS: ATIVAN 1 MG PO (11:48)
[2024-08-24] MEDS: NON-FORMULARY ITEM 4.8 GRAMS PO (11:48)
[2024-08-24] MEDS: LEXAPRO 10 MG PO (11:48)
--- NOTE | 2024-08-24 12:46 | W.PN.HOSP.TC ---
Today's Communication/Plan
-
Await CT
Assessment / Plan
Assessment / Plan
Gen-AAOx3, NAD
HEENT-NC, AT, anicteric, clear oral mm
Neck-supple
CV-reg, no M, +S1/S2
Lungs-clear B/L
Abd-soft, NT, ND
Ext-no edema
Musculoskeletal-no cyanosis, clubbing
Skin-warm and dry
Neuro-grossly non-focal
Psych-calm, cooperative
Acute ulcerative colitis flare -currently on IV steroids. IV Remicade initiated by GI service. Colorectal surgery consulted. Tolerating low residue diet. Elevated stool calprotectin noted.
Sigmoidoscopy 08/22 showed severe ulcerative colitis involving the transverse and descending colon with deep ulcerations and blood and purulent material. Appeared worse compared to prior. Mild ulcerative colitis in the rectum and sigmoid. Biopsies
were done.
CT enterography ordered by GI service.
Persistent nausea -unclear etiology, perhaps GERD related. Nausea resolved. Protonix increased to twice daily. Ordered as needed sucralfate but has not received any doses so far.
GERD -continue Protonix. EGD done 08/22 showed 2 cm hiatal hernia. Diffuse mild mucosal changes and altered texture throughout the esophagus. Biopsy performed for possible eosinophilic esophagitis. GI service recommends once daily Protonix.
ADHD
- Stable. Hold Adderall acutely.
Anxiety / depression
- Stable. Continue Lexapro. Patient requesting an increase in dose of Ativan, will order 3 times daily as needed. Recommend not discharging on Ativan.
Alcohol Use Disorder -no signs of active alcohol withdrawal currently.
- Patient reports about 4-6 beers daily.
- Also note prior history of childhood seizures - none in many years.
- Monitor for any evidence of withdrawal symptoms. Has not required any benzodiazepines so far.
- Thiamine, folate, MVI replacement.
DVT Prophylaxis: Lovenox.
Code Status: Full
Anticipated Discharge: > 48 hours
Subjective/Interval History
-
Date of Service: August 24, 2024
Patient seen and examined. Overall abdominal pain improving but still has loose stools.
Objective Data
-
Vital Signs:
Vital Signs
Temp Pulse Resp BP Pulse Ox
97.8 F 63 16 128/84 95
08/24/24 07:55 08/24/24 07:55 08/24/24 07:55 08/24/24 07:55 08/24/24 07:55
I&O
08/23/24 08/24/24 08/25/24
06:59 06:59 06:59
Intake Total 930 / 930 1680 / 1680 480 / 480
Balance 930 / 930 1680 / 1680 480 / 480
Review of Systems
-
History Source: Patient
All other systems: Reviewed and negative
[2024-08-24 15:42] VITALS: BP 145/80
[2024-08-24] MEDS: LOVENOX 40 MG SC (17:24)
[2024-08-24] MEDS: ATIVAN 0.5 MG PO (17:41)
[2024-08-24] MEDS: COLOCORT/CORTENEMA RECTAL (22:13)
--- NOTE | 2024-08-24 22:13 | PTCARENOTE ---
Cortenema is out of stock per pharmacy. Pt is already on mesalamine and IV steroids so there is no other med that needs to be ordered at this time per pharmacist.
[2024-08-25] MEDS: SOLU-MEDROL PF 20 MG IV ×3 (01:59→18:25)
[2024-08-25 07:45] LABS: % Basophils 0.4 % (0-2); % Eosinophils 0.2 % (0-6); % Immature Granulocytes 1.1 % (0-0.5); % Lymphocytes 12.1 % (20.5-51.1); % Monocytes 10.6 % (1.7-9.3); % Neutrophils 75.6 % (42.2-75.2); Absolute Basophils 0.1 10^3/uL (0-0.2); Absolute Immature Granulocytes 0.1 10^3/uL (0-0.05); Absolute Lymphocytes 1.4 10^3/uL (1.2-3.4); Absolute Monocytes 1.2 10^3/uL (0.1-0.6); Absolute Neutrophils 8.6 10^3/uL (1.4-6.5); Hematocrit 41.5 % (39.0-52.0); Hemoglobin 14.5 g/dL (13.0-18.0); Mean Corp Hgb Conc. 34.9 g/dL (33.0-37.0); Mean Corpuscular Volume 85.9 fL (80.0-94.0); Nucleated Red Blood Cells % 0 % (-); Platelet Count 547 10^3/uL (130-400); Red Blood Cell Count 4.83 10^6/uL (4.70-6.10); White Blood Cell Count 11.3 10^3/uL (4.8-10.8)
[2024-08-25 07:55] VITALS: BP 133/91
[2024-08-25] MEDS: CHECK PPD SITE 1 CHECK INTRADERMA (08:12)
[2024-08-25] MEDS: VITAMIN B1 100 MG PO ×2 (08:12→20:06)
[2024-08-25] MEDS: FOLVITE 1 MG PO (08:12)
[2024-08-25] MEDS: VISBIOME 2 CAP PO (08:12)
[2024-08-25] MEDS: CARAFATE SUSPENSION 1 GM PO ×2 (08:13→13:09)
[2024-08-25] MEDS: NICODERM TRANSDERMAL 21 MG TRANSDERM (08:13)
[2024-08-25] MEDS: ZOFRAN 4 MG IV ×2 (08:13→18:25)
[2024-08-25] MEDS: PROTONIX 40 MG PO (08:13)
--- NOTE | 2024-08-25 08:18 | W.PN.HOSP.TC ---
Today's Communication/Plan
-
Continue steroids and additional treatment as below and as per GI and colorectal surgery
Assessment / Plan
Assessment / Plan
Physical Exam
Gen-AAOx3, NAD
HEENT-NC, AT
Neck-supple
CV-reg, no M, +S1/S2
Lungs-clear B/L
Abd-soft, NT, ND
Ext-no edema
Musculoskeletal-no cyanosis
Skin-warm and dry
Neuro-grossly non-focal
Psych-calm, cooperative
Assessment/Plan
Acute ulcerative colitis flare - continue IV Solu-Medrol 20 Q8H. IV Remicade initiated by GI service - if after 5 days of failure to Remicade, surgery would strongly consider surgery versus third line medical treatment. Continue Mesalamine.
Continue hydrocortisone enema. Colorectal surgery consulted. Tolerating low residue diet. Elevated stool calprotectin noted.
Sigmoidoscopy 08/22 showed severe ulcerative colitis involving the transverse and descending colon with deep ulcerations and blood and purulent material. Appeared worse compared to prior. Mild ulcerative colitis in the rectum and sigmoid. Biopsies
were done. Continue low residue; continue ensure shakes, no indication for TPN.
CT enterography ordered by GI service.
Persistent nausea -unclear etiology, perhaps GERD related. Nausea resolved. Protonix increased to twice daily. Ordered as needed sucralfate.
GERD -continue Protonix. EGD done 08/22 showed 2 cm hiatal hernia. Diffuse mild mucosal changes and altered texture throughout the esophagus. Biopsy performed for possible eosinophilic esophagitis. GI service recommends once daily Protonix.
ADHD
- Stable. Hold Adderall acutely.
Anxiety / depression
- Stable. Continue Lexapro. Patient requesting an increase in dose of Ativan, will order 3 times daily as needed. Recommend not discharging on Ativan.
Alcohol Use Disorder -no signs of active alcohol withdrawal currently.
- Patient reports about 4-6 beers daily.
- Also note prior history of childhood seizures - none in many years.
- Monitor for any evidence of withdrawal symptoms.
- Thiamine, folate, MVI replacement.
DVT Prophylaxis: Lovenox.
Code Status: Full Code.
Anticipated Discharge: > 48 hours
Subjective/Interval History
-
Date of Service: August 25, 2024
Patient was seen and examined. He was about to eat lunch when he was seen, no new significant symptoms or complaints.
Objective Data
-
Labs:
Laboratory Results
08/25/24
06:38
WBC 11.3 H
Hgb 14.5
Hct 41.5
Plt Count 547 H
Sodium Pending
Potassium Pending
Chloride Pending
Carbon Dioxide Pending
BUN Pending
Creatinine Pending
Glucose Pending
Calcium Pending
Total Bilirubin Pending
AST Pending
ALT Pending
Alkaline Phosphatase Pending
Vital Signs:
Vital Signs
Temp Pulse Resp BP Pulse Ox
98.0 F 70 16 145/80 97
08/24/24 15:42 08/24/24 15:42 08/24/24 15:42 08/24/24 15:42 08/24/24 15:42
I&O
08/24/24 08/25/24 08/26/24
06:59 06:59 06:59
Intake Total 1680 / 1680 2009
Output Total 300 / 300
Balance 1680 / 1680 1710 / 1710
[2024-08-25 08:23] LABS: ALT (SGPT) 21 U/L (0-50); AST (SGOT) 19 U/L (17-59); Albumin 3.3 g/dl (3.5-5.0); Alkaline Phosphatase 56 U/L (38-126); Blood Urea Nitrogen 15 mg/dl (9-20); Calcium 8.9 mg/dl (8.4-10.2); Carbon Dioxide 29 mmol/L (22-30); Chloride 97 mmol/L (98-107); Estimated Creatinine Clearance > 125 ml/min; Glucose 102 mg/dl (70-99); Potassium 4.5 mmol/L (3.5-5.1); Sodium 140 mmol/L (135-145); Total Bilirubin 0.4 mg/dl (0.2-1.3); Total Protein 5.8 g/dl (6.3-8.2); eGFR > 60.00
[2024-08-25 08:28] LABS: Prealbumin (Transthyretin) 21.5 mg/dl (17.6-36.0)
[2024-08-25] MEDS: ATIVAN PO (09:30)
[2024-08-25] MEDS: ATIVAN 0.5 MG PO ×3 (09:30→23:56)
--- NOTE | 2024-08-25 10:41 | W.PN.CRS1 ---
Today's Communication / Plan
-
follow exam
Assessment/Plan
-
Assessment: 38 year old male with a history of ulcerative colitis since 2015, presents to the ER on 08/18 with a month worth of abdominal pain/bloody stools/nausea and vomiting with worsening colitis found on flex sig today
08/22 - Remicaide
08/24- CT enterography - Chronic uncomplicated mild to moderate colitis of the transverse and descending colon. No additional bowel pathology is seen.
Vitals normal. WBC 11.3 from 10.8, but overall trending down.Afebrile.
-Continue on low residue.. If cannot tolerate a diet, may need TPN in the future.
-Will continue to monitor exam closely.
-Possible surgery in the future if no improvement.
-CRP trend.
Subjective Data
Subjective Data
Date of Service: August 25, 2024
Patient states he feels the same. He is still having abdominal pain and loose stools. He has occasional nausea. He is on a low residue diet.
Objective Data
-
Vital Signs
Temp Pulse Resp BP Pulse Ox
98.2 F 67 18 133/91 96
08/25/24 07:55 08/25/24 07:55 08/25/24 07:55 08/25/24 07:55 08/25/24 07:55
Intake & Output
08/24/24 08/25/24 08/26/24
06:59 06:59 06:59
Intake Total 1680 / 1680 2009
Output Total 300 / 300
Balance 1680 / 1680 1710 / 1710
Intake:
Oral fluids 1680 / 1680 1770 / 1770
Amount of oral supplement(s) 240 / 240
consumed
Output:
Urine, Voided 300 / 300
Other:
Number of approximated MODERATE 3 4
amounts of urine
Number of approximated LARGE 2
amounts of urine
Number of unmeasured liquid
stools
Rectum 5
Lab Results
08/25/24 06:38
08/25/24 06:38
Physical Exam
-
General: No Acute Distress and AOx3
Abdomen: Soft, Non Distended and Non Tender
Skin: Warm and Dry
--- NOTE | 2024-08-25 12:41 | W.PN.GI.CBS2 ---
Today's Communication / Plan
-
-- Start Rinvoq. Patient to supply the pills
Assessment / Plan
-
Pt is a 38yo with hx GERD, ADHD, hernia repair and albrecht ulcerative colitis. In reviewing with patient he was diagnosed in 2015 with ER admission 2020 with perianal abscess and was doing well on Lialda 2 tabs daily. He was last seen in 2022 with
colonoscopy in January Altered vascular, erythematous, pseudopolypoid and ulcerated mucosa from sigmoid to cecum (scattered) bx mild active colitis descending and sigmoid. Pt states over last few months he has noted progressive change in bowel
habits with abdominal pain, diarrhea and rectal bleeding. Over the weekend he then noted nausea vomiting along with worsening lower abdominal pain with some loose stools and others all blood. On admission Ct notable for diffuse colitis greatest
descending and transverse with sparing of hepatic flexure and right colon nodular distal ileum with ' backwash ileitis'.
-diffuse colitis on CT
-diarrhea with bleeding
-nausea/vomiting
-hx Ulcerative colitis on Lialda prior to admission
-mild elevated ESR
-leukocytosis
-prior perianal abscess not noted on follow up CT
-GERD with increased symptoms
-wt loss
other med problems:
-ADHD
-hernia repair
-daily ETOH use
PLAN:
etiology of abdominal pain with diarrhea and bleeding related to UC flare
stools studies c-diff neg, crypto and Giardia negative, cultures also neg, elevated CRP, elevated fecal macey
Continue IV steroids
cont pain management and antiemetics per medical team
Hepatitis B surface antibody positive from prior vaccination
Low residue diet as tolerated
added PPI for GERD sx and nausea, increased to bid and also added carafate
Nausea may be related to Dilaudid and also steroids
facial flushing may also be related to steroids
compression stocking for DVT prophylaxis
discussed ETOH abstinence and also told him to quit smoking e-cigarettes, monitor for withdrawal
Continue thiamine folic acid
08/21/24 given ongoing symptoms despite being on IV steroid today is day 4 with Lialda 4.8 g daily and probiotics will add hydrocortisone enema. had a lengthy discussion with patient and his at bedside since he is not responding to steroids may
need to consider starting him on Remicade as inpatient. QuantiFERON gold test is pending, will get PPD, hepatitis serologies are negative (HBV s Ab positive from prior vaccination) and will also get a chest x-ray. Will also schedule him for
sigmoidoscopy tomorrow to assess disease activity and also rule out CMV. Patient initially was very hesitant to start Biologics but I did explain to him that if he does not respond in the next day or 2 he may be steroid refractory and will need
Biologics doubt mesalamine hypersensitivity.
08/22/24 -flexible sigmoidoscopy to the transverse -rectum and distal sigmoid were mild but descending and transverse colon were significantly inflamed with deep ulcerations. Biopsies pending including CMV.
-- Gave first dose of Remicade 10 mg/kg
-- Continue IV steroids, Chin enemas at night, diet as tolerated
08/23/24 -tolerated Remicade well yesterday, 1 loose bowel movement this morning. Possibly some mild improvement. No significant abdominal pain. Appreciate colorectal consult.
08/24/2024 -no significant improvement, continues IV steroids, received Remicade on 08/22/2024
-- In discussion with Dr. Barton with surgery we were discussing the possibility of Crohn's disease which is possible. He had a perirectal abscess in 2020. His initial colonoscopy did show classic ulcerative colitis in 2016 with Martinez 2 throughout
the colon with normal TI normal biopsies. CT scan this admission shows some possible thickening in the distal ileum.
-- Will proceed with enterography to further review the small bowel to help with any surgical planning that may be in the near future. MRIs down so we will proceed with CT enterography
-- Discussed with patient if he is not improving by tomorrow may consider inpatient Rinvoq
-- Filled out patient's disability paperwork
08/25/2024 - no improvement in number, urgency, blood, and loose stools despite Remicade 08/22/24. Will start Rinvoq 45mg induction dose for UC
-- reviewed CT enterography which does not show any small bowel disease
--CRP is starting to improve which is a good sign
-- Discussed patient's slight increased risk for shingles and DVT. He is aware of this risk and is willing to accept it
-- Appreciate colorectal seeing the patient
-- Discussed with nursing and pharmacy
Subjective
Subjective
Date of Service: August 25, 2024
patient with no improvement in number of bowel movements. Willing to start Rinvoq
Objective
Data Reviewed
Laboratory Data:
Laboratory Results
08/25/24 06:38
08/25/24 06:38
Laboratory Results
Phosphorus Cancelled 08/17/24 20:22
Magnesium Cancelled 08/17/24 20:22
Total Bilirubin 0.4 mg/dl (0.2-1.3) 08/25/24 06:38
AST 19 U/L (17-59) 08/25/24 06:38
ALT 21 U/L (0-50) 08/25/24 06:38
Alkaline Phosphatase 56 U/L (38-126) 08/25/24 06:38
Vital Signs and I&O:
Vital Signs
Temp Pulse Resp BP Pulse Ox
98.2 F 67 18 133/91 96
08/25/24 07:55 08/25/24 07:55 08/25/24 07:55 08/25/24 07:55 08/25/24 07:55
I&O
08/24/24 08/25/24 08/26/24
06:59 06:59 06:59
Intake Total 0 / 1680 2009
Output Total 300 / 300
Balance 1680 / 1680 1710 / 1710
Physical Exam
Physical Exam
HEENT: Anicteric
Pulmonary: Clear
GI: Soft and Tender
Extremities: No Edema
Neuro: Non Focal
[2024-08-25] MEDS: NON-FORMULARY ITEM 4.8 GRAMS PO (13:09)
[2024-08-25] MEDS: LEXAPRO 10 MG PO (13:09)
[2024-08-25] MEDS: COMPAZINE 10 MG IV (13:13)
[2024-08-25 16:00] VITALS: BP 136/86
[2024-08-25] MEDS: LOVENOX 40 MG SC (18:22)
[2024-08-25] MEDS: COLOCORT/CORTENEMA 60 ML RECTAL (22:42)
[2024-08-25 23:53] VITALS: BP 139/93
[2024-08-26] MEDS: SOLU-MEDROL PF 20 MG IV ×2 (01:45→09:20)
[2024-08-26 07:40] VITALS: BP 144/93
[2024-08-26 08:37] LABS: % Basophils 0.4 % (0-2); % Eosinophils 0.2 % (0-6); % Immature Granulocytes 1.4 % (0-0.5); % Lymphocytes 13.5 % (20.5-51.1); % Neutrophils 74.5 % (42.2-75.2); Absolute Basophils 0.1 10^3/uL (0-0.2); Absolute Immature Granulocytes 0.2 10^3/uL (0-0.05); Absolute Lymphocytes 1.6 10^3/uL (1.2-3.4); Absolute Monocytes 1.2 10^3/uL (0.1-0.6); Absolute Neutrophils 8.5 10^3/uL (1.4-6.5); Hematocrit 40.4 % (39.0-52.0); Hemoglobin 14.3 g/dL (13.0-18.0); Mean Corp Hgb Conc. 35.4 g/dL (33.0-37.0); Mean Corpuscular Volume 84.9 fL (80.0-94.0); Mean Platelet Volume 10.8 fL (7.4-10.4); Nucleated Red Blood Cells % 0 % (-); Platelet Count 559 10^3/uL (130-400); Red Blood Cell Count 4.76 10^6/uL (4.70-6.10); Red Cell Dist. Width 12.8 % (11.5-14.5); White Blood Cell Count 11.5 10^3/uL (4.8-10.8)
[2024-08-26 09:06] LABS: ALT (SGPT) 22 U/L (0-50); AST (SGOT) 19 U/L (17-59); Albumin 3.4 g/dl (3.5-5.0); Alkaline Phosphatase 55 U/L (38-126); Blood Urea Nitrogen 14 mg/dl (9-20); Calcium 9.1 mg/dl (8.4-10.2); Carbon Dioxide 28 mmol/L (22-30); Chloride 97 mmol/L (98-107); Estimated Creatinine Clearance > 125 ml/min; Glucose 104 mg/dl (70-99); Potassium 4.6 mmol/L (3.5-5.1); Sodium 138 mmol/L (135-145); Total Bilirubin 0.6 mg/dl (0.2-1.3); Total Protein 5.8 g/dl (6.3-8.2); eGFR > 60.00
--- NOTE | 2024-08-26 09:16 | W.PN.GI.CBS2 ---
Addendum entered and electronically signed by Gale Frias MD 08/26/24 15:06:
appt 09/09 7:[address]. Frederick will give appt card [id number]
Addendum entered and electronically signed by Gale Frias MD 08/26/24 14:57:
I saw and examined the patient.
The STEM SIZER or PA's note was reviewed and I agree with the note.
Comment: 38-year-old male here with severe UC flare. Did not respond to IV steroids and ultimately given Remicade August 22. Started Rinvoq questionably either August 25 or August 26. Patient and Dr. Frederick told me he started August 25 but there is
no documentation of it in [facility]. However, he sees a substantial improvement in his symptoms. He had 2 bowel movements today more formed. Minimal blood if any. Yesterday he had 9 bowel movements a day.
I have stopped his mesalamine and probiotics no role at this time. Patient has issues with the steroid enema which we will stop as well. I stopped his IV steroids and will start p.o. prednisone 40 mg tomorrow. Due to the fact that he got Remicade
this week and now is getting Rinvoq with high dose steroids, will start Bactrim. He is on Lovenox for DVT prophylaxis. I also stopped his pain meds.
If he continues to do well, he may be able to be discharged either later tomorrow or .
I sent a msg will arrange outpatient follow up with Dr. Frederick.
Original Note:
Today's Communication / Plan
-
Pt with severe UC flare
---Lialda 4.8 grams daily(dose increase on admission from 2.4 gram daily outpatient)
---IV steroids -solumedrol 20mg Q 8 hours since 08/18
---s/p Remicade 08/22 10mg/kg --700mg 08/22
---Rinvoq --started 08/26
---Bactrim =-PCP prophylaxis started 08/26
---remains on Probiotics, Lovenox DVT prophylaxis, PPi, thiamine, folate
---s/p colorectal surgical eval
---disability paper completed
fecal calpro 08/17- 832, 08/18 ESR 22, CRP-08/17- 74.3, 08/18 151.20, 08/22- 72.6, 08/23 68, 08/25 42.8
08/19 hep B prior immunity otherwise neg, TB gold neg
Low residue diet with supplement
discussed ETOH abstinence and also told him to quit smoking e-cigarettes, monitor for withdrawal
08/25- message sent to office for approval for Rinvovoq
08/26 pt with improvement today less blood, abdominal pain-- trial increased diet intakes
Assessment / Plan
-
Pt is a 38yo with hx GERD, ADHD, hernia repair and albrecht ulcerative colitis. In reviewing with patient he was diagnosed in 2015 with ER admission 2020 with perianal abscess and was doing well on Lialda 2 tabs daily. He was last seen in 2022 with
colonoscopy in January Altered vascular, erythematous, pseudopolypoid and ulcerated mucosa from sigmoid to cecum (scattered) bx mild active colitis descending and sigmoid. Pt states over last few months he has noted progressive change in bowel
habits with abdominal pain, diarrhea and rectal bleeding. Over the weekend he then noted nausea vomiting along with worsening lower abdominal pain with some loose stools and others all blood. On admission Ct notable for diffuse colitis greatest
descending and transverse with sparing of hepatic flexure and right colon nodular distal ileum with ' backwash ileitis' with minimal improvement during admission with medical therapy adjustment as below
08/17/24 stool cx , c-diff, giardia, crypto neg
08/24/24- Ct enterography
1. Chronic uncomplicated mild to moderate colitis of the transverse and descending colon. No additional bowel pathology is seen.
2. No other significant abnormalities within the abdomen or pelvis.
08/22 flex sig- Mild (Martinez Score 1) ulcerative colitis in the rectum
and sigmoid, worsened since the last examination.
Biopsied.
- Severe (Martinez Score 3) ulcerative colitis in the
descending and transverse colon - significant deep
ulcerations with blood and purulent material exuding
from the deep ulcers, worsened since the last
examination. Biopsied.
bx moderate active colitis, , neg CMV
08/22 EGD 2 cm hiatal hernia.
- Texture changed mucosa in the esophagus.
- Normal stomach.
- Normal examined duodenum.
- Biopsies were taken with a cold forceps for
evaluation of eosinophilic esophagitis.
bx neg EOE
-diffuse colitis on CT s/p flex with concern for UC flare
-diarrhea with bleeding
-nausea/vomiting
-hx Ulcerative colitis on Lialda prior to admission
-mild elevated ESR
-leukocytosis
-prior perianal abscess not noted on follow up CT
-GERD with increased symptoms
-wt loss
other med problems:
-ADHD
-hernia repair
-daily ETOH use
PLAN:
Pt with severe UC flare
---Lialda 4.8 grams daily(dose increase on admission from 2.4 gram daily outpatient)
---IV steroids -solumedrol 20mg Q 8 hours since 08/18
---s/p Remicade 08/22 10mg/kg --700mg 08/22
---Rinvoq --started 08/26
---Bactrim =-PCP prophylaxis started 08/26
---remains on Probiotics, Lovenox DVT prophylaxis, PPi, thiamine, folate
---s/p colorectal surgical eval
---disability paper completed
fecal calpro 08/17- 832, 08/18 ESR 22, CRP-08/17- 74.3, 08/18 151.20, 08/22- 72.6, 08/23 68, 08/25 42.8
08/19 hep B prior immunity otherwise neg, TB gold neg
Low residue diet with supplement
discussed ETOH abstinence and also told him to quit smoking e-cigarettes, monitor for withdrawal
08/25- message sent to office for approval for Rinvovoq
08/26 pt with improvement today less blood, abdominal pain-- trial increased diet intakes
Subjective
Subjective
Date of Service: August 26, 2024
08/26 brown stools-- low residue diet, pt feeling better 01/26 pain from 08/28 on admission-- less stool frequency, blood and improving pain
Objective
Data Reviewed
Laboratory Data:
Laboratory Results
08/26/24 08:10
08/26/24 08:10
Laboratory Results
Phosphorus Cancelled 08/17/24 20:22
Magnesium Cancelled 08/17/24 20:22
Total Bilirubin 0.6 mg/dl (0.2-1.3) 08/26/24 08:10
AST 19 U/L (17-59) 08/26/24 08:10
ALT 22 U/L (0-50) 08/26/24 08:10
Alkaline Phosphatase 55 U/L (38-126) 08/26/24 08:10
Vital Signs and I&O:
Vital Signs
Temp Pulse Resp BP Pulse Ox
98.2 F 63 16 144/93 98
08/26/24 07:40 08/26/24 07:40 08/26/24 07:40 08/26/24 07:40 08/26/24 07:40
I&O
08/25/24 08/26/24 08/27/24
06:59 06:59 06:59
Intake Total 2009 1290 / 1290
Output Total 300 / 300
Balance 1710 / 1710 1290 / 1290
Physical Exam
Physical Exam
HEENT: Anicteric and Moist mucous membranes
Cardiology: Normal Sinus Rhythm
Pulmonary: Clear
GI: Soft, Non Distended and Tender (mild )
Extremities: No Edema
Neuro: Non Focal
[2024-08-26] MEDS: VISBIOME 2 CAP PO (09:20)
[2024-08-26] MEDS: FOLVITE 1 MG PO (09:20)
[2024-08-26] MEDS: VITAMIN B1 100 MG PO ×2 (09:21→19:59)
[2024-08-26] MEDS: PROTONIX 40 MG PO (09:21)
[2024-08-26] MEDS: NICODERM TRANSDERMAL 21 MG TRANSDERM (09:21)
[2024-08-26] MEDS: NON-FORMULARY ITEM 4 GRAMS PO (09:22)
[2024-08-26] MEDS: NON-FORMULARY ITEM 1 UNIT PO (10:10)
[2024-08-26] MEDS: BACTRIM DS 800 MG/160 MG 1 TABLET PO (10:10)
[2024-08-26] MEDS: ZOFRAN 4 MG IV ×2 (10:44→17:13)
[2024-08-26] MEDS: ATIVAN 1 MG PO (10:44)
[2024-08-26] MEDS: LEXAPRO 10 MG PO (14:20)
[2024-08-26 15:40] VITALS: BP 141/92
--- NOTE | 2024-08-26 16:02 | CM ---
Reviewed the notes. Per notes, improving and possible discharge Sunday or . CM continues to be available to patient/family and is monitoring medical plan for needs at discharge.
Plan: Discharge to home when medically stable. No needs anticipated.
--- NOTE | 2024-08-26 16:24 | W.PN.HOSP.TC ---
Today's Communication/Plan
-
Appreciate GI
Start Bactrim
Medication changes as below and as per GI note
Anticipate discharge tomorrow or if doing better
Assessment / Plan
Assessment / Plan
Physical Exam
Gen-AAOx3, NAD
HEENT-NC, AT
Neck-supple
CV-reg, no M, +S1/S2
Lungs-clear B/L
Abd-soft, NT, ND
Ext-no edema
Musculoskeletal-no cyanosis
Skin-warm and dry
Neuro-grossly non-focal
Psych-calm, cooperative
Assessment/Plan
Acute ulcerative colitis flare - Switch IV Solu-Medrol 20 Q8H to Prednisone tomorrow. IV Remicade initiated by GI service - now stopped. Stop Mesalamine, hydrocortisone enema and probiotics on 08/26/24 as per GI. Continue Rinvoq. Colorectal surgery
consulted. Tolerating low residue diet. Elevated stool calprotectin noted. Sigmoidoscopy 08/22 showed severe ulcerative colitis involving the transverse and descending colon with deep ulcerations and blood and purulent material. Appeared worse
compared to prior. Mild ulcerative colitis in the rectum and sigmoid. Biopsies were done. Continue low residue; continue ensure shakes, no indication for TPN. CT enterography ordered by GI service. Start Bactrim given patient was on Remicade
earlier and is now on Rinvoq.
Persistent nausea -unclear etiology, perhaps GERD related. Nausea resolved. Protonix increased to twice daily. Ordered as needed sucralfate.
GERD -continue Protonix. EGD done 08/22 showed 2 cm hiatal hernia. Diffuse mild mucosal changes and altered texture throughout the esophagus. Biopsy performed for possible eosinophilic esophagitis. GI service recommends once daily Protonix.
ADHD
- Stable. Hold Adderall acutely.
Anxiety / depression
- Stable. Continue Lexapro. Patient requesting an increase in dose of Ativan, will order 3 times daily as needed. Recommend not discharging on Ativan.
Alcohol Use Disorder -no signs of active alcohol withdrawal currently.
- Patient reports about 4-6 beers daily.
- Also note prior history of childhood seizures - none in many years.
- Monitor for any evidence of withdrawal symptoms.
- Thiamine, folate, MVI replacement.
DVT Prophylaxis: Lovenox.
Code Status: Full Code.
Anticipated Discharge: 24 - 48 hours
Subjective/Interval History
-
Date of Service: August 26, 2024
Patient was seen and examined. He reports that his bowel movements are improving, and abdominal pain has improved.
Objective Data
-
Labs:
Laboratory Results
08/26/24
08:10
WBC 11.5 H
Hgb 14.3
Hct 40.4
Plt Count 559 H
Sodium 138
Potassium 4.6
Chloride 97 L
Carbon Dioxide 28
BUN 14
Creatinine 0.7
Glucose 104 H
Calcium 9.1
Total Bilirubin 0.6
AST 19
ALT 22
Alkaline Phosphatase 55
Vital Signs:
Vital Signs
Temp Pulse Resp BP Pulse Ox
98.5 F 74 16 141/92 96
08/26/24 15:40 08/26/24 15:40 08/26/24 15:40 08/26/24 15:40 08/26/24 15:40
I&O
08/25/24 08/26/24 08/27/24
06:59 06:59 06:59
Intake Total 2009 1290 / 1290
Output Total 300 / 300
Balance 1710 / 1710 1290 / 1290
[2024-08-26] MEDS: LOVENOX 40 MG SC (17:13)
--- NOTE | 2024-08-26 19:23 | PTCARENOTE ---
MD aware that 1 MG dose of Ativan was given under the [facility] order, but patient required the order for Anxiety, his vitals are stable, awake and alert, no issues throughout shift.
[2024-08-26 23:16] VITALS: BP 138/93
[2024-08-26] MEDS: TYLENOL 1000 MG PO (23:18)
[2024-08-26] MEDS: MELATONIN 5 MG PO (23:18)
[2024-08-27 07:38] VITALS: BP 146/93
[2024-08-27 08:11] LABS: Hemoglobin 14.2 g/dL (13.0-18.0); Mean Corp Hgb Conc. 34.6 g/dL (33.0-37.0); Mean Corpuscular Volume 83.8 fL (80.0-94.0); Mean Platelet Volume 10.5 fL (7.4-10.4); Platelet Count 599 10^3/uL (130-400); Red Blood Cell Count 4.89 10^6/uL (4.70-6.10); White Blood Cell Count 15.1 10^3/uL (4.8-10.8)
[2024-08-27] MEDS: BACTRIM DS 800 MG/160 MG 1 TABLET PO (08:48)
[2024-08-27] MEDS: FOLVITE 1 MG PO (08:48)
[2024-08-27] MEDS: NICODERM TRANSDERMAL 21 MG TRANSDERM (08:48)
[2024-08-27] MEDS: VITAMIN B1 100 MG PO ×2 (08:48→20:53)
[2024-08-27] MEDS: PROTONIX 40 MG PO (08:48)
[2024-08-27] MEDS: DELTASONE 40 MG PO (08:48)
[2024-08-27] MEDS: NON-FORMULARY ITEM 1 UNIT PO (08:49)
[2024-08-27 09:08] LABS: Blood Urea Nitrogen 14 mg/dl (9-20); Carbon Dioxide 30 mmol/L (22-30); Chloride 99 mmol/L (98-107); Estimated Creatinine Clearance 117 ml/min; Glucose 78 mg/dl (70-99); Potassium 4.2 mmol/L (3.5-5.1); Sodium 140 mmol/L (135-145); eGFR > 60.00
--- NOTE | 2024-08-27 09:33 | W.PN.CRS1 ---
Today's Communication / Plan
-
follow exam
IV steroids
Assessment/Plan
-
Assessment: 38 year old male with a history of ulcerative colitis since 2015, presents to the ER on 08/18 with a month worth of abdominal pain/bloody stools/nausea and vomiting with worsening colitis found on flex sig today
08/22 - Remicaide
08/24- CT enterography - Chronic uncomplicated mild to moderate colitis of the transverse and descending colon. No additional bowel pathology is seen.
Vitals normal. WBC 15.1 from 11.5. , afebrile
-Continue on low residue.. If cannot tolerate a diet, may need TPN in the future.
-Will continue to monitor exam closely.
-Possible surgery in the future if no improvement.
-Switching back to IV steriods per GI
Subjective Data
Subjective Data
Date of Service: August 27, 2024
Patient states he is overall feeling better but he had a bad few nights. He states he has not had any vomiting but he does have some nausea. He still has blood in the stool. He has had about 9 bowel movements overnight and some abdominal pain but
today he feels better.
Objective Data
-
Vital Signs
Temp Pulse Resp BP Pulse Ox
97.7 F 59 16 146/93 98
08/27/24 07:38 08/27/24 07:38 08/27/24 07:38 08/27/24 07:38 08/27/24 07:38
Intake & Output
08/26/24 08/27/24 08/28/24
06:59 06:59 06:59
Intake Total 1290 / 1290 1889
Balance 1290 / 1290 1889
Intake:
Oral fluids 1290 / 1290 1889
Other:
Number of approximated SMALL 3
amounts of urine
Number of approximated MODERATE 3 3
amounts of urine
Number of unmeasured liquid
stools
Rectum 3
Lab Results
08/27/24 07:44
08/27/24 07:44
Physical Exam
-
General: No Acute Distress and AOx3
Abdomen: Soft, Non Distended and Tender (mild)
[2024-08-27] MEDS: LEXAPRO 10 MG PO (12:19)
--- NOTE | 2024-08-27 13:57 | CM ---
Reviewed the chart notes and spoke with the patient at the bedside. Patient anticipates being discharged to home with no needs identified at this time. If patient has surgery during this admission, may need VN. CM continues to be available to
patient/family and is monitoring medical plan for needs at discharge.
Plan: Discharge to home with no anticipated needs at this time.
--- NOTE | 2024-08-27 14:34 | W.PN.GI.CBS2 ---
Today's Communication / Plan
-
monitor BM on Rinvoq, resume IV steroids
Assessment / Plan
-
38-year-old male here with severe UC flare. Did not respond to IV steroids and ultimately given Remicade August 22 after flex sig 08/22 with [place] 3 (I personally reviewed images myself today deep ulcers path neg for CMV). Started Rinvoq
questionably either August 25 or August 26. [address] Dr[address] Frederick told me he started August 25 but there is no documentation of it in [facility].
Feeling worse today with 9 bm total yesterday however better than when he first was admitted. CRP is trending down.
I saw pt multiple times today, discussed with colorectal surgery, hospitalist at length. I am concerned he is not improving and may need surgery. Pt is hesitant.
We will resume IV steroids.
Continue bactrim for PCP prophylaxis.
Continue lovenox for DVT prophylaxis.
OK from GI POV for ativan I d/w hospitalist. Hold narcotics.
Appreciate colorectal surgery input. Suspect if needs surgery will be early next week.
Appt for Dr. Frederick in DC summary but pending clinical course may need to be changed.
Extensive time in coordination of care of patient.
Total Time Spent with Patient (in minutes): 50
Subjective
Subjective
Date of Service: August 27, 2024
pt with 9 bm yesterday
he states this is better than the 15 when he came in
some blood but less than when he first came in
some abd cramping
appetite better than when he first came in
Objective
Data Reviewed
Laboratory Data:
Laboratory Results
08/27/24 07:44
08/27/24 07:44
Laboratory Results
Phosphorus Cancelled 08/17/24 20:22
Magnesium Cancelled 08/17/24 20:22
Total Bilirubin 0.6 mg/dl (0.2-1.3) 08/26/24 08:10
AST 19 U/L (17-59) 08/26/24 08:10
ALT 22 U/L (0-50) 08/26/24 08:10
Alkaline Phosphatase 55 U/L (38-126) 08/26/24 08:10
Vital Signs and I&O:
Vital Signs
Temp Pulse Resp BP Pulse Ox
97.7 F 59 16 146/93 98
08/27/24 07:38 08/27/24 07:38 08/27/24 07:38 08/27/24 07:38 08/27/24 07:38
I&O
08/26/24 08/27/24 08/28/24
06:59 06:59 06:59
Intake Total 1290 / 1290 1890 / 1890
Output Total 0 / 0
Balance 1290 / 1290 1890 / 1890 0 / 0
Physical Exam
Physical Exam
HEENT: Anicteric
Cardiology: Normal Sinus Rhythm
Pulmonary: Wheezes
GI: Non Distended and Non Tender
Neuro: Other (anxious flat affect)
[2024-08-27 15:22] VITALS: BP 147/101
[2024-08-27] MEDS: SOLU-MEDROL PF 20 MG IV ×2 (17:00→23:04)
--- NOTE | 2024-08-27 17:47 | W.PN.HOSP.TC ---
Today's Communication/Plan
-
Doing worse today, more frequent bowel movements yesterday, IV steroids restarted
May need surgery
Assessment / Plan
Assessment / Plan
Physical Exam
Gen-AAOx3, NAD
HEENT-NC, AT
Neck-supple
CV-reg, no M, +S1/S2
Lungs-clear B/L
Abd-soft, NT, ND
Ext-no edema
Musculoskeletal-no cyanosis
Skin-warm and dry
Neuro-grossly non-focal
Psych-calm, cooperative
Assessment/Plan
Acute ulcerative colitis flare - IV Solu-Medrol 20 Q8H resumed as patient is doing worse. IV Remicade initiated by GI service - now stopped. Stop Mesalamine, hydrocortisone enema and probiotics on 08/26/24 as per GI. Continue Rinvoq. Colorectal
surgery consulted. Tolerating low residue diet. Elevated stool calprotectin noted. Sigmoidoscopy 08/22 showed severe ulcerative colitis involving the transverse and descending colon with deep ulcerations and blood and purulent material. Appeared
worse compared to prior. Mild ulcerative colitis in the rectum and sigmoid. Biopsies were done. Continue low residue; continue ensure shakes, no indication for TPN. CT enterography ordered by GI service. Continue Bactrim given patient was on
Remicade earlier and is now on Rinvoq.
Persistent nausea -unclear etiology, perhaps GERD related. Nausea resolved. Protonix increased to twice daily. Ordered as needed sucralfate.
GERD -continue Protonix. EGD done 08/22 showed 2 cm hiatal hernia. Diffuse mild mucosal changes and altered texture throughout the esophagus. Biopsy performed for possible eosinophilic esophagitis. GI service recommends once daily Protonix.
ADHD
- Stable. Hold Adderall acutely.
Anxiety / depression
- Stable. Continue Lexapro. Patient requesting an increase in dose of Ativan, will order 3 times daily as needed. Recommend not discharging on Ativan.
Alcohol Use Disorder -no signs of active alcohol withdrawal currently.
- Patient reports about 4-6 beers daily.
- Also note prior history of childhood seizures - none in many years.
- Monitor for any evidence of withdrawal symptoms.
- Thiamine, folate, MVI replacement.
DVT Prophylaxis: Lovenox.
Code Status: Full Code.
Anticipated Discharge: > 48 hours
Subjective/Interval History
-
Date of Service: August 27, 2024
Patient was seen and examined. He reported much more frequent bowel movements yesterday.
Objective Data
-
Labs:
Laboratory Results
08/27/24
07:44
WBC 15.1 H
Hgb 14.2
Hct 41.0
Plt Count 599 H
Sodium 140
Potassium 4.2
Chloride 99
Carbon Dioxide 30
BUN 14
Creatinine 0.8
Glucose 78
Calcium 9.0
Vital Signs:
Vital Signs
Temp Pulse Resp BP Pulse Ox
98 F 87 18 147/101 99
08/27/24 15:22 08/27/24 15:22 08/27/24 15:22 08/27/24 15:22 08/27/24 15:22
I&O
08/26/24 08/27/24 08/28/24
06:59 06:59 06:59
Intake Total 1290 / 1290 1890 / 1890 810 / 810
Output Total 0 / 0
Balance 1290 / 1290 1890 / 1890 810 / 810
[2024-08-27] MEDS: LOVENOX 40 MG SC (18:02)
[2024-08-27 23:27] VITALS: BP 129/89
[2024-08-28 07:39] LABS: Hematocrit 37.7 % (39.0-52.0); Hemoglobin 13.4 g/dL (13.0-18.0); Mean Corp Hgb Conc. 35.5 g/dL (33.0-37.0); Mean Corpuscular Hgb 29.4 pg (27.0-31.0); Mean Corpuscular Volume 82.7 fL (80.0-94.0); Mean Platelet Volume 10.5 fL (7.4-10.4); Platelet Count 570 10^3/uL (130-400); Red Blood Cell Count 4.56 10^6/uL (4.70-6.10); Red Cell Dist. Width 12.9 % (11.5-14.5)
[2024-08-28 07:41] VITALS: BP 137/94
[2024-08-28 08:09] LABS: Blood Urea Nitrogen 11 mg/dl (9-20); Calcium 8.9 mg/dl (8.4-10.2); Carbon Dioxide 25 mmol/L (22-30); Chloride 100 mmol/L (98-107); Estimated Creatinine Clearance > 125 ml/min; Glucose 117 mg/dl (70-99); Potassium 4.4 mmol/L (3.5-5.1); Sodium 133 mmol/L (135-145); eGFR > 60.00
[2024-08-28] MEDS: FOLVITE 1 MG PO (08:38)
[2024-08-28] MEDS: BACTRIM DS 800 MG/160 MG 1 TABLET PO (08:38)
[2024-08-28] MEDS: VITAMIN B1 100 MG PO ×2 (08:38→21:49)
[2024-08-28] MEDS: PROTONIX 40 MG PO (08:38)
[2024-08-28] MEDS: NICODERM TRANSDERMAL 21 MG TRANSDERM (08:38)
[2024-08-28] MEDS: SOLU-MEDROL PF 20 MG IV ×2 (08:39→21:48)
[2024-08-28] MEDS: NON-FORMULARY ITEM 1 UNIT PO (08:39)
--- NOTE | 2024-08-28 10:25 | CM ---
Reviewed the chart notes. Patient continues on low residual diet. CM continues to be available to patient/family and is monitoring medical plan for needs at discharge.
Plan: Discharge plans will depend on the patient's progress especially if he has surgery.
--- NOTE | 2024-08-28 10:54 | W.PN.CRS1 ---
Today's Communication / Plan
-
no plans for surgery today
Assessment/Plan
-
Assessment: 38 year old male with a history of ulcerative colitis since 2015, presents to the ER on 08/18 with a month worth of abdominal pain/bloody stools/nausea and vomiting with worsening colitis found on flex sig today
08/22 - Remicaide
08/24- CT enterography - Chronic uncomplicated mild to moderate colitis of the transverse and descending colon. No additional bowel pathology is seen.
Vitals normal. WBC 16.0 from 15.1
-Continue on low residue diet.
-Will continue to monitor exam closely.
-Possible surgery in the future if no improvement. No surgery today or tomorrow.
- IV steriods per GI
Subjective Data
Subjective Data
Date of Service: August 28, 2024
Patient states he feels much improved today. He denies abdominal pain. He denies nausea or vomiting. He only had 5 bowel movements yesterday.
Objective Data
-
Vital Signs
Temp Pulse Resp BP Pulse Ox
98 F 83 18 137/94 99
08/28/24 07:41 08/28/24 07:41 08/28/24 07:41 08/28/24 07:41 08/28/24 07:41
Intake & Output
08/27/24 08/28/24 08/29/24
06:59 06:59 06:59
Intake Total 1889 1290 / 1290
Output Total 0 / 0
Balance 1889 1290 / 1290
Intake:
Oral fluids 1889 1290 / 1290
Output:
Drain Output (Total) 0 / 0
Middle Abdomen 0 / 0
Other:
Number of approximated MODERATE 3 3
amounts of urine
Number of unmeasured liquid
stools
Rectum 3
Lab Results
08/28/24 07:07
08/28/24 07:07
Physical Exam
-
General: No Acute Distress and AOx3
Abdomen: Soft, Non Distended and Non Tender
[2024-08-28] MEDS: LEXAPRO 10 MG PO (12:42)
[2024-08-28 15:25] VITALS: BP 143/93
--- NOTE | 2024-08-28 16:43 | W.PN.GI.CBS2 ---
Addendum entered and electronically signed by Gale Frias MD 08/28/24 16:53:
Error - Rinvoq started 08/25 confirmed.
Original Note:
Today's Communication / Plan
-
transition to oral prednisone, if feels well ok discharge tomorrow
Assessment / Plan
-
38-year-old male here with severe UC flare. Did not respond to IV steroids and ultimately given Remicade August 22 after flex sig 08/22 with [place] 3 (I personally reviewed images myself today deep ulcers path neg for CMV). Started Rinvoq
questionably either August 25.
Feeling improved.
Continue Rinvoq 45 mg - We discussed risks and benefits of starting Rinvoq. Adverse events include infection, mortality from cardiovascular events, malignancy such as lymphoma, thrombosis, hypersensitivity, rare reports of GI perforation, zoster,
neutropenia, anemia, lymphopenia, elevated LFTs, elevated lipids. Patient needs periodic skin check for with risk of skin cancer. Recommend shingles vaccine before Rinvoq if possible - I told pt to get shingles vaccine today. Recommend baseline
CBC, LFTs and lipid and repeat 12 weeks posttherapy. I ordered lipids for tomorrow.
Solumderol decreased to bid today.
I put in for prednisone 60 mg tomorrow - taper: 60 mg x1 week, 50 mg x1 week, 40 mgx1 week, 30 mgx1 week, 20 x1 week, 10 mgx1 week, 5 mgx 1 week. Should take OTC vit d/ca with prednisone reviewed with pt.
Continue bactrim for PCP prophylaxis - continue on discharge until patient appt with Dr. Frederick on 09/09.
Continue lovenox for DVT prophylaxis.
OK from GI POV for ativan I d/w hospitalist. Hold narcotics.
Appreciate colorectal surgery input. Since much improved hopefully surgery not needed.
I gave pt appt 09/09 at 7:[address] Frederick. I discussed pt with Dr. Frederick.
Extensive time in coordination of care of patient.
Subjective
Subjective
Date of Service: August 28, 2024
feels improved today - 4 BM yesterday one so far today when I saw him this am.
appetite, pain, overall feeling improved.
Objective
Data Reviewed
Laboratory Data:
Laboratory Results
08/28/24 07:07
08/28/24 07:07
Laboratory Results
Phosphorus Cancelled 08/17/24 20:22
Magnesium Cancelled 08/17/24 20:22
Total Bilirubin 0.6 mg/dl (0.2-1.3) 08/26/24 08:10
AST 19 U/L (17-59) 08/26/24 08:10
ALT 22 U/L (0-50) 08/26/24 08:10
Alkaline Phosphatase 55 U/L (38-126) 08/26/24 08:10
Vital Signs and I&O:
Vital Signs
Temp Pulse Resp BP Pulse Ox
98.1 F 83 18 143/93 99
08/28/24 15:25 08/28/24 15:25 08/28/24 15:25 08/28/24 15:25 08/28/24 15:25
I&O
08/27/24 08/28/24 08/29/24
06:59 06:59 06:59
Intake Total 1889 1290 / 1290
Output Total 0 / 0
Balance 1889 1290 / 1290
Physical Exam
Physical Exam
HEENT: Anicteric
Cardiology: Normal Sinus Rhythm
Pulmonary: Clear
GI: Non Distended and Non Tender
Extremities: No Edema
[2024-08-28] MEDS: LOVENOX 40 MG SC (17:21)
--- NOTE | 2024-08-28 18:13 | W.PN.HOSP.TC ---
Today's Communication/Plan
-
Patient medically doing better -- steroids being reduced
Psychiatry consult for assistance with outpatient anxiety management
Assessment / Plan
Assessment / Plan
Physical Exam
Gen-AAOx3, NAD
HEENT-NC, AT
Neck-supple
CV-reg, no M, +S1/S2
Lungs-clear B/L
Abd-soft, NT, ND
Ext-no edema
Musculoskeletal-no cyanosis
Skin-warm and dry
Neuro-grossly non-focal
Psych-calm, cooperative
Assessment/Plan
Acute ulcerative colitis flare - IV Solu-Medrol 20 decreased to BID, plan to transition to PO Steroids (prednisone taper). IV Remicade initiated by GI service - now stopped. Stop Mesalamine, hydrocortisone enema and probiotics on 08/26/24 as per
GI. Continue Rinvoq. Colorectal surgery consulted. Tolerating low residue diet. Elevated stool calprotectin noted. Sigmoidoscopy 08/22 showed severe ulcerative colitis involving the transverse and descending colon with deep ulcerations and blood
and purulent material. Appeared worse compared to prior. Mild ulcerative colitis in the rectum and sigmoid. Biopsies were done. Continue low residue; continue ensure shakes, no indication for TPN. CT enterography ordered by GI service. Continue
Bactrim given patient was on Remicade earlier and is now on Rinvoq.
Persistent nausea -unclear etiology, perhaps GERD related. Nausea resolved. Protonix increased to twice daily. Ordered as needed sucralfate.
GERD -continue Protonix. EGD done 08/22 showed 2 cm hiatal hernia. Diffuse mild mucosal changes and altered texture throughout the esophagus. Biopsy performed for possible eosinophilic esophagitis. GI service recommends once daily Protonix.
ADHD
- Stable. Hold Adderall acutely.
Anxiety / depression
- Stable. Continue Lexapro. Patient requesting an increase in dose of Ativan, will order 3 times daily as needed. Recommend not discharging on Ativan.
Alcohol Use Disorder -no signs of active alcohol withdrawal currently.
- Patient reports about 4-6 beers daily.
- Also note prior history of childhood seizures - none in many years.
- Monitor for any evidence of withdrawal symptoms.
- Thiamine, folate, MVI replacement.
DVT Prophylaxis: Lovenox.
Code Status: Full Code.
Anticipated Discharge: 24 - 48 hours
Subjective/Interval History
-
Date of Service: August 28, 2024
Patient was seen and examined. He reported feeling a lot better today, the frequency of his bowel movements has dramatically decreased.
Objective Data
-
Labs:
Laboratory Results
08/28/24
07:07
WBC 16.0 H
Hgb 13.4
Hct 37.7 L
Plt Count 570 H
Sodium 133 L
Potassium 4.4
Chloride 100
Carbon Dioxide 25
BUN 11
Creatinine 0.6 L
Glucose 117 H
Calcium 8.9
Vital Signs:
Vital Signs
Temp Pulse Resp BP Pulse Ox
98.1 F 83 18 143/93 99
08/28/24 15:25 08/28/24 15:25 08/28/24 15:25 08/28/24 15:25 08/28/24 15:25
I&O
08/27/24 08/28/24 08/29/24
06:59 06:59 06:59
Intake Total 1889 1290 / 1290
Output Total 0 / 0
Balance 1889 1290 / 1290
[2024-08-28] MEDS: ATIVAN 0.25 MG PO (21:49)
[2024-08-28 23:08] VITALS: BP 145/71
[2024-08-28] MEDS: MELATONIN 5 MG PO (23:41)
[2024-08-29 06:42] LABS: Hematocrit 39.9 % (39.0-52.0); Mean Corp Hgb Conc. 35.1 g/dL (33.0-37.0); Mean Corpuscular Hgb 30.2 pg (27.0-31.0); Mean Corpuscular Volume 86.2 fL (80.0-94.0); Mean Platelet Volume 10.3 fL (7.4-10.4); Platelet Count 539 10^3/uL (130-400); Red Blood Cell Count 4.63 10^6/uL (4.70-6.10); Red Cell Dist. Width 13.2 % (11.5-14.5)
[2024-08-29 07:20] LABS: Blood Urea Nitrogen 17 mg/dl (9-20); Calcium 9.1 mg/dl (8.4-10.2); Carbon Dioxide 24 mmol/L (22-30); Chloride 103 mmol/L (98-107); Estimated Creatinine Clearance > 125 ml/min; Glucose 108 mg/dl (70-99); Potassium 5.4 mmol/L (3.5-5.1); Sodium 138 mmol/L (135-145); eGFR > 60.00
[2024-08-29 07:55] VITALS: BP 105/75
[2024-08-29] MEDS: NICODERM TRANSDERMAL 21 MG TRANSDERM (09:34)
[2024-08-29] MEDS: FOLVITE 1 MG PO (09:34)
[2024-08-29] MEDS: BACTRIM DS 800 MG/160 MG 1 TABLET PO (09:34)
[2024-08-29] MEDS: DELTASONE 60 MG PO (09:34)
[2024-08-29] MEDS: PROTONIX 40 MG PO (09:34)
[2024-08-29] MEDS: NON-FORMULARY ITEM 1 UNIT PO (09:35)
[2024-08-29] MEDS: VITAMIN B1 100 MG PO (09:35)
--- NOTE | 2024-08-29 09:59 | CON.MD ---
Consultation - Medical
-
patient seen chart reviewed. consult ordered for consideration of alternatives to ativan for anxiety. the patient is a 38 year old male with ulcerative colitis who was admitted for a flareup. he also has hx of rx for depression/ anxiety and adhd.
he was dx w uc in 2016. that is also when he started taking lexapro current dose 10 mg. he is not sure it has helped him but he does not feel at this point that he is depressed 'so maybe it did help me'. he does not describe much anxiety. he feels
the times he has needed ativan here which is more or less about once daily in doses varying from 0.25 to 1 mg the one mg dose the least frequent (once) have been related to anxiety / insomnia caused by steroids which are being transitioned to po and
dosage will be tapered. he does not feel unduly anxious at present. the past two nights however he struggled to sleep again he feels due to steroids and he took ativan o.25 mg. he does admit to the ingestion of four to six beers daily which he
knows has to stop. he says his etoh use 'crept up on me' over the last year and he recognizes the deleterious impact on his physical health which he believes he neglected in the past year. he says he can enjoy himself when he feels physically well.
also when physically well energy level appetite are okay and his sleep is okay (again when he is physically well.) he said while he has not been suicidal. he believes he is strongly against suicide bc his mother committed suicide when he was [age]
and he would never do that to his family and those who love him. there is nothing to suggest psychosis or bipolar
past psych hx patient did have therapy when very young to deal with his mom's . he was never hosp psychiatrically. he does not see a psychiatrist . pcp prescribes meds. he started taking adderall 10 mg bid for adhd when he was struggling to get
through college and continued. he was never able to finish college
medical hx ulcerative colitis see above patient denied a lot of dx in the external medical summary. he said he does not any longer experience sx of gerd. he said he does not have htn and he is not on antihypertensives currently sometimes eczema.
he was told he has vit d def and takes 2000 iu daily vapes.
substance abuse etoh 4-6 beers daily
fh mom committed suicide and suffered from depression
social hx mom when he was [age]. father was a good supportive parent. 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 work stressful as his company bought and sold. he denies sexual or physical trauma plays [employer] games has + friendships
mse alert xo3 cooperative pleasant speech and thought process nl no unusual mannerisms no psychosis mood is neutral affect appropriate no si aver intelligence insight judgment seem ok
dx by hx unspec depression/anxiety
recommendations patient does NOT wish to have ativan dispensed at dc and at present i do not see that he needs an anxiolytic. he is not sure lexapro helps but also say he is not depressed. if anxiety escalates could increase lexapro to 15 mg then
20 mg but would not do this now. he anticipates sleep issues will ameliorate with taper of steriods. can use melatonin or even antihistamines occasionally for sleep. also can google cognitive behavioral strategies for sleep. adderall does have a
deleterious effect on sleep and should be taken last dose in the early afternoon not later. lastly etoh use is not having a + effect on anxiety or sleep. he needs to stop drinking which he admitted. if he cannot quit on his own he should consider
an out patient program or at the least AA . consider whether [facility] consult could help w this or he can simply call [facility] [employer] for a referral ( [place] ) psych will sign off. psych will sign off as he will be leaving today or
early tomorrow
--- NOTE | 2024-08-29 10:22 | W.PN.GI.CBS2 ---
Today's Communication / Plan
-
can d/c home if repeat K is better
Assessment / Plan
-
38-year-old male here with severe UC flare. Did not respond to IV steroids and ultimately given Remicade August 22 after flex sig 08/22 with [place] 3 (I personally reviewed images myself today deep ulcers path neg for CMV). Started Rinvoq
questionably either August 25.
Continues to feel improved.
Continue Rinvoq 45 mg - Recommend baseline CBC, LFTs and lipid and repeat 12 weeks posttherapy. I ordered lipids for tomorrow.
Solumderol d/c'ed.
Prednisone 60 mg started today. The taper regimen is as follows: 60 mg x1 week, 50 mg x1 week, 40 mgx1 week, 30 mgx1 week, 20 x1 week, 10 mgx1 week, 5 mgx 1 week. Should take OTC vit d/ca with prednisone reviewed with pt.
Continue bactrim for PCP prophylaxis - continue on discharge until patient appt with Dr. Frederick on 09/09.
Continue lovenox for DVT prophylaxis.
OK from GI POV for ativan I d/w hospitalist. Hold narcotics.
Has f/u appt 09/09 at 7:[address] Frederick.
K is 5.4 today, if repeat is better then pt may be d/c'ed home.
Total Time Spent with Patient (in minutes): 35
Subjective
Subjective
Date of Service: August 29, 2024
No complaints. Denies pain, no BM as of yet.
Objective
Data Reviewed
Laboratory Data:
Laboratory Results
08/29/24 06:24
Laboratory Results
Phosphorus Cancelled 08/17/24 20:22
Magnesium Cancelled 08/17/24 20:22
Total Bilirubin 0.6 mg/dl (0.2-1.3) 08/26/24 08:10
AST 19 U/L (17-59) 08/26/24 08:10
ALT 22 U/L (0-50) 08/26/24 08:10
Alkaline Phosphatase 55 U/L (38-126) 08/26/24 08:10
Vital Signs and I&O:
Vital Signs
Temp Pulse Resp BP Pulse Ox
98.1 F 75 18 105/75 99
08/29/24 07:55 08/29/24 07:55 08/29/24 07:55 08/29/24 07:55 08/29/24 07:55
I&O
08/28/24 08/29/24 08/30/24
06:59 06:59 06:59
Intake Total 1290 / 1290 1320 / 1320
Output Total 0 / 0
Balance 1290 / 1290 1320 / 1320
--- NOTE | 2024-08-29 10:44 | W.PN.CRS1 ---
Today's Communication / Plan
-
sign off
Assessment/Plan
-
Assessment: 38 year old male with a history of ulcerative colitis since 2015, presents to the ER on 08/18 with a month worth of abdominal pain/bloody stools/nausea and vomiting with worsening colitis found on flex sig today
08/22 - Remicaide
08/24- CT enterography - Chronic uncomplicated mild to moderate colitis of the transverse and descending colon. No additional bowel pathology is seen.
Vitals normal. WBC 16.0 from 16.0.
-Continue on low residue diet.
-No plans for surgery - has improved
-Will sign off, please contact us if further surgerical issues arise
Subjective Data
Subjective Data
Date of Service: August 29, 2024
Patient states he feels much better. He only had two bowel movements yesterday. He has no pain and he is tolerating a diet.
Objective Data
-
Vital Signs
Temp Pulse Resp BP Pulse Ox
98.1 F 75 18 105/75 99
08/29/24 07:55 08/29/24 07:55 08/29/24 07:55 08/29/24 07:55 08/29/24 07:55
Intake & Output
08/28/24 08/29/24 08/30/24
06:59 06:59 06:59
Intake Total 1290 / 1290 1320 / 1320
Output Total 0 / 0
Balance 1290 / 1290 1320 / 1320
Intake:
Oral fluids 1290 / 1290 1320 / 1320
Output:
Drain Output (Total) 0 / 0
Middle Abdomen 0 / 0
Other:
Number of approximated MODERATE 3 2
amounts of urine
Number of unmeasured liquid
stools
Rectum 2
Lab Results
08/29/24 06:24
Physical Exam
-
General: No Acute Distress and AOx3
Abdomen: Soft, Non Distended and Non Tender
Skin: Warm and Dry
--- NOTE | 2024-08-29 11:20 | CM ---
Reviewed the chart notes. Colorectal surgery has signed off. CM continues to be available to patient/family and is monitoring medical plan for needs at discharge.
Plan: Discharge to home when medically stable. No needs anticipated.
[2024-08-29 12:49] LABS: Blood Urea Nitrogen 18 mg/dl (9-20); Calcium 9.6 mg/dl (8.4-10.2); Carbon Dioxide 30 mmol/L (22-30); Chloride 99 mmol/L (98-107); Estimated Creatinine Clearance 117 ml/min; Glucose 60 mg/dl (70-99); Potassium 4.7 mmol/L (3.5-5.1); Sodium 140 mmol/L (135-145); eGFR > 60.00
[2024-08-29 13:07] LABS: Glucose - Point of Care 92 mg/dl (70-99)
[2024-08-29] MEDS: LEXAPRO 10 MG PO (13:15)
[2024-08-29 13:34] LABS: HDL Cholesterol 67 mg/dl; LDL Cholesterol, Calculated 55 mg/dl; Total Cholesterol 181 mg/dl (50-199); Triglyceride 296 mg/dl (10-149); Very Low Density Lipoprotein 59 mg/dl (0-30)
--- NOTE | 2024-08-29 14:17 | W.PN.HOSP.TC ---
Today's Communication/Plan
-
Discharge today
Assessment / Plan
Assessment / Plan
Physical Exam
Gen-AAOx3, NAD
HEENT-NC, AT
Neck-supple
CV-reg, no M, +S1/S2
Lungs-clear B/L
Abd-soft, NT, ND
Ext-no edema
Musculoskeletal-no cyanosis
Skin-warm and dry
Neuro-grossly non-focal
Psych-calm, cooperative
Assessment/Plan
Acute ulcerative colitis flare - IV Solu-Medrol 20 now stopped, patient now transitioned to transition to PO Steroids (prednisone taper: 60 mg x1 week, 50 mg x1 week, 40 mg x1 week, 30 mg x1 week, 20 x1 week, 10 mg x1 week, 5 mg x1 week). Should
take OTC vit d/ca with prednisone). IV Remicade initiated by GI service - now stopped. Stop Mesalamine, hydrocortisone enema and probiotics on 08/26/24 as per GI. Continue Rinvoq (recommend baseline CBC, LFTs and lipid and repeat 12 weeks
posttherapy). Colorectal surgery consulted. Tolerating low residue diet. Elevated stool calprotectin noted. Sigmoidoscopy 08/22 showed severe ulcerative colitis involving the transverse and descending colon with deep ulcerations and blood and
purulent material. Appeared worse compared to prior. Mild ulcerative colitis in the rectum and sigmoid. Biopsies were done. Continue low residue; continue ensure shakes, no indication for TPN. CT enterography ordered by GI service. Continue
Bactrim for PCP prophylaxis given patient was on Remicade earlier and is now on Rinvoq. Continue on low residue diet.
Things to keep in mind for Rinvoq:
Adverse events include infection, mortality from cardiovascular events, malignancy such as lymphoma, thrombosis, hypersensitivity, rare reports of GI perforation, zoster, neutropenia, anemia, lymphopenia, elevated LFTs, elevated lipids. Patient
needs periodic skin check for with risk of skin cancer. Recommend shingles vaccine before Rinvoq if possible - I told pt to get shingles vaccine today. Recommend baseline CBC, LFTs and lipid and repeat 12 weeks posttherapy.
Persistent nausea - unclear etiology, perhaps GERD related. Nausea resolved. Protonix increased to twice daily. Ordered as needed sucralfate.
GERD -continue Protonix. EGD done 08/22 showed 2 cm hiatal hernia. Diffuse mild mucosal changes and altered texture throughout the esophagus. Biopsy performed for possible eosinophilic esophagitis. GI service recommends once daily Protonix.
ADHD
- Stable. Hold Adderall acutely.
Anxiety / depression
- Stable. Continue Lexapro. Patient requesting an increase in dose of Ativan, will order 3 times daily as needed. Recommend not discharging on Ativan.
Alcohol Use Disorder -no signs of active alcohol withdrawal currently.
- Patient reports about 4-6 beers daily.
- Also note prior history of childhood seizures - none in many years.
- Monitor for any evidence of withdrawal symptoms.
- Thiamine, folate, MVI replacement.
- Call [facility] for a referral (he lives in [place], [place])
DVT Prophylaxis: Lovenox.
Code Status: Full Code.
More than 30 minutes spent in discharge including
Final examination of the patient
Summarizing hospital stay
Instructions for continuing care to all relevant caregivers
Preparation of discharge records, prescriptions, and referral forms
Total time spent (in minutes): 39
Anticipated Discharge: Today
Subjective/Interval History
-
Date of Service: August 29, 2024
Patient was seen and examined. He denied any pain, said his doing better, and would like to go home if possible.
Objective Data
-
Labs:
Laboratory Results
08/29/24 08/29/24
06:24 11:21
WBC 16.0 H
Hgb 14.0
Hct 39.9
Plt Count 539 H
Sodium 138 140
Potassium 5.4 H 4.7
Chloride 103 99
Carbon Dioxide 24 30
BUN 17 18
Creatinine 0.7 0.8
Glucose 108 H 60 L
Calcium 9.1 9.6
Vital Signs:
Vital Signs
Temp Pulse Resp BP Pulse Ox
98.1 F 75 18 105/75 99
08/29/24 07:55 08/29/24 07:55 08/29/24 07:55 08/29/24 07:55 08/29/24 07:55
I&O
08/28/24 08/29/24 08/30/24
06:59 06:59 06:59
Intake Total 1290 / 1290 1320 / 1320
Output Total 0 / 0
Balance 1290 / 1290 1320 / 1320
[2024-08-29 15:50] VITALS: BP 122/78
== END 2024-08-29 18:30 | disposition home or self-care (01) | DRG 386 ==
LOC: 2 NORTH 17:01
PROVIDERS: Hospitalist; Internal Medicine; Internal Medicine Gastroenterology; Nurse Practitioner Adult Health; Physician Assistant; Surgery; ADMITTING PHYSICIAN Hospitalist; ATTENDING PHYSICIAN Hospitalist; CONSULT PHYSICIAN Internal Medicine Gastroenterology; CONSULT PHYSICIAN Psychiatry & Neurology Psychiatry; CONSULT PHYSICIAN Surgery; EMERGENCY PHYSICIAN Emergency Medicine; FAMILY PHYSICIAN Family Medicine
PROC: 0DB58ZX Excision of Esophagus, Via Natural or Artificial Opening Endoscopic, Diagnostic (ICD-10-PCS; 2024-08-22)
PROC: 0DBN8ZX Excision of Sigmoid Colon, Via Natural or Artificial Opening Endoscopic, Diagnostic (ICD-10-PCS; 2024-08-22)
DX: K51.011 Ulcerative (chronic) pancolitis with rectal bleeding (principal); K92.1 Melena; F90.9 Attention-deficit hyperactivity disorder, unspecified type; F32.A Depression, unspecified; F41.0 Panic disorder [episodic paroxysmal anxiety]; F10.10 Alcohol abuse, uncomplicated; F17.290 Nicotine dependence, other tobacco product, uncomplicated; K21.9 Gastro-esophageal reflux disease without esophagitis; K44.9 Diaphragmatic hernia without obstruction or gangrene; K22.89 Other specified disease of esophagus; K20.0 Eosinophilic esophagitis
CPT/HCPCS: 88305; 71046; 74177; 80048; 80053; 80061; 80306; 80307; 82248; 82962; 83605; 83735; 83993; 84100; 84134; 85025; 85027; 85652; 86140; 86480; 86704; 86705; 86706; 86803; 87045; 87046; 87324; 87328; 87329; 87340; 87427; 87449; 87811; 88342; 96361; 96365; 99285; J1745; Q9967

== ENCOUNTER 2024-09-25 13:24 | Inpatient (IN) | payer OTHER, SELFPAY ==
[2024-09-25] VITALS (9 sets, daily range): BP systolic 117–139; BP diastolic 79–105; PULSE 87–128; BMI 24.7
--- NOTE | 2024-09-25 10:47 | ED.GENMED ---
History of Present Illness
General
Chief Complaint: Fainting/Passed Out
Source: patient and records
Time Seen by Provider: 09/25/24 10:37
History of Present Illness
History of Present Illness:
39yoM with a history of ulcerative colitis and ADHD presenting via EMS for evaluation after a syncopal episode about 1 hour ago. Patient was at work today and was sitting. He suddenly started to get sweaty and felt lightheaded. He then had a
witnessed syncopal episode in his chair. He is unsure how long he was unconscious for but he does not believe it was long. He went to the bathroom afterwards and had an episode of bloody diarrhea. He reports having dark stools over the past week. He
denies any chest pain, shortness of breath, palpitations. Patient was admitted last month for an ulcerative colitis flare. He is currently on a prednisone taper and Rinvoq.
Past History
Past History
ED Past Medical History: Other (Ulcerative colitis)
ED Past Surgical History: Other (hernia)
Social History
Tobacco: Non-smoker
Alcohol: None
Personal: Single
Living: alone
Employment: Employed
Phy Exam
General Physical Exam
General Presentation: well appearing and no apparent distress
General age: appears stated age
General Skin: warm and dry
General Habitus: normal
General Mental: alert
ENT Exam
ENT Exam: normocephalic
Cardiovascular Exam
Cardiovascular Exam: no murmur and tachycardia
Pulmonary Exam
Pulmonary Exam: lungs clear, no respiratory distress, no crackles and no wheezing
Gastrointestinal Exam
Gastrointestinal Exam: non tender, soft and non distended
Neurological Exam
Neurological Exam: alert
Lonnie Coma Scale
Eye Opening: Spontaneous
Verbal Response: Oriented
Motor Response: Obeys Commands
GCS Total Score: 15
Skin Exam
Skin Exam: normal color and warm/dry
Psychiatric Exam
Psychiatric Exam: normal mood/affect
Course
Orders/Labs/Results
Orders:
Orders
09/25/24 10:37
Electrocardiogram (*1) Urgent
Reason for Study: Chest Pain
EKG- Treatment ONCE
09/25/24 11:03
Comprehensive Metabolic Panel Urgent
Troponin I Urgent
09/25/24 11:04
Complete Blood Count/With Diff Urgent
09/25/24 12:33
0.9% Sodium Chloride 1000 ml [Nss] 1,000 ml IV BOLUS
Pantoprazole [Protonix IV] 40 mg IV NOW STA
09/25/24 12:36
C DIFF [C difficile Antigen & Toxins] Urgent
TODD Source: Feces/Stool
Specimen Description:
Date Specimen was Collected: 09/25/24
Time Specimen was Collected: 12:44
Stool Culture Routine
TODD Source: Feces/Stool
Specimen Description:
Date Specimen was Collected: 09/25/24
Time Specimen was Collected: 12:44
09/25/24 12:41
Admit/Transfer Patient As Directed
Co-Sign Provider:
Level of Care: Inpatient admission
Assign to:: Telemetry
Physician / Group: Audrey Avila
Diagnosis: Hematochezia
Reason for Telemetry: Syncope
Date to Stop Telemetry: 09/27/24
Time to Stop Telemetry: 11:00
Reason for Hospitalization: Hematochezia, Syncope
Expected length of stay greater than two midnights?: Yes
ELOS- Estimated Length of Stay in days: 4
I certify the patient meets the requirements for IP care: Yes
09/25/24 12:42
PRN Pain Medication Management As Directed
May give lesser potent ordered pain med per pt: Yes
preference::
Protocol:: Medication orders for pain may be administered in a
manner that supports deferring to patient preference
when the pt is:
- Requesting an ordered lesser potent pain medication.
Least to most potent pain medications are defined
as: acetaminophen < NSAID < tramadol < opioids
(morphine, oxycodone, hydromorphone).
- Requesting a lesser dose of the same medication IF
ORDERED.
- Requesting a less intrusive route of administration
if both routes are prescribed by the provider (PO <
IV).
09/25/24 12:43
Code Status As Directed
Resuscitation Status: Full Code
09/25/24 12:[address] Non Medication Order As Directed
Physician Order: please TT me when med rec complete
09/25/24 12:47
Ova & Parasites Giardia/Crypto AG [Giardia/Cryptosporidium Ag] Routine
TODD Source: Feces/Stool
Specimen Description:
Date Specimen was Collected: 09/25/24
Time Specimen was Collected: 13:08
09/25/24 12:48
0.9% Sodium Chloride [Nss (Preservative Free)] 10 ml IV NOW STA
09/27/24 11:00
DC Protocol for Telemetry ONCE
Abnormal Lab Results
09/25/24 09/25/24
11:03 11:04
WBC 14.0 H 10^3/uL
(4.8-10.8)
RBC 3.43 L 10^6/uL
(4.70-6.10)
Hgb 10.6 L g/dL
(13.0-18.0)
Hct 30.8 L %
(39.0-52.0)
RDW 15.8 H %
(11.5-14.5)
Plt Count 537 H 10^3/uL
(130-400)
Abs Immat Gran (auto) 0.3 H 10^3/uL
(0-0.05)
Absolute Neuts (auto) 7.2 H 10^3/uL
(1.4-6.5)
Absolute Lymphs (auto) 5.0 H 10^3/uL
(1.2-3.4)
Absolute Monos (auto) 1.3 H 10^3/uL
(0.1-0.6)
Immature Gran % 2.4 H %
(0-0.5)
Total Protein 5.6 L g/dl
(6.3-8.2)
09/25/24 11:04
09/25/24 11:03
Vital Signs
Initial and Last Documented VS:
Initial Vital Signs
Temp Pulse Resp BP Pulse Ox
98.7 F 112 20 125/105 99
09/25/24 10:32 09/25/24 10:32 09/25/24 10:32 09/25/24 10:32 09/25/24 10:32
Last Documented Vital Signs
Temp Pulse Resp BP Pulse Ox
98.7 F 88 12 125/98 100
09/25/24 10:32 09/25/24 12:00 09/25/24 12:00 09/25/24 12:00 09/25/24 12:00
MDM/Problems Addressed
Differential Diagnosis Includes:
39yoM here after a syncopal episode. Preceded by diaphoresis and lightheadedness. Had an episode of bloody diarrhea afterwards and having dark stools x 1 week. Hx of ulcerative colitis with recent admission. HR 112 in triage. Remainder of vitals
stable. He is non-toxic appearing. Differential diagnosis includes but is not limited to: GI bleed, vasovagal episode, dehydration, less likely cardiogenic syncope
Initial ED plan: Check cardiac labs and EKG.
*EKG
Interpreted by ED Provider?: Yes
EKG Intrepretation Date: 09/25/24
Heart Rate: 110
Rate: tachycardiac
Rhythm: sinus
Douglas: normal axis
Interval: normal interval
QRS Pattern: normal QRS
Ischemia: no ischemia
*Critical Care Note
Total Time (30-74mins, 75-104mins- exclusive of procedures): Not Applicable
Update Note
Update Note:
EKG shows sinus tachycardia without ischemic changes or ectopy. Troponin WNL. Hemoglobin 10.6 which is down from 14 at time of discharge last month. Will admit for further evaluation and management.
ED Attending Note
-
Portions of this chart may have been created with voice recognition software.� Occasional wrong word or��sound alike� substitutions may have occurred due to the inherent limitations of voice recognition software.
Discharge Plan
Departure
Patient Disposition: Admit
Date of Disposition: 09/25/24
Time of Disposition: 11:50
Presentation/result/management discussed w/ accepting MD/DO: Hospitalist
Discharge Problem:
Syncope, GI bleed, Anemia
Prescriptions:
No Action
escitalopram oxalate 10 MG tablet
10 mg PO DAILY@1200
cholecalciferol (vitamin D3) 2,000 UNITS tablet
2,000 units PO DAILY@1200
cetirizine 10 MG tablet
10 mg PO DAILY@1200
dextroamphetamine-amphetamine 10 MG tablet
10 mg PO BID
Patient Comments:
last filled 08/05/24 for 60 tablets over 30 days
acetaminophen [Tylenol Extra Strength] 500 MG tablet
1,000 mg PO Q6HPRN PRN (Reason: MILD PAIN)
multivitamin with folic acid [Tab-A-Mali] 1 TABLET tablet
1 tab PO DAILY@1200
fluticasone propionate 50 mcg/actuation [place],Suspension
1 spray INTRANASAL DAILYPRN PRN (Reason: conjestion)
thiamine HCl (vitamin B1) 100 mg Tablet
100 mg PO BID Qty: 60 0RF
folic acid 1 mg Tablet
1 mg PO DAILY Qty: 30 0RF
sulfamethoxazole-trimethoprim 800-160 mg Tablet
1 tab PO DAILY Qty: 14 0RF
prednisone 5 mg tablet
See Rx Instructions .ROUTE .COMPLEX Qty: 289 0RF
Rx Instructions:
60 mg/day x6 day, 50 mg/day x1 week, 40 mg/day x1 week, 30 mg/day x1 week, 20 mg/day x1 week, 10 mg/day x1 week, 5 mg/day x1 week
pantoprazole 40 mg Tablet,Delayed Release (Dr/Ec)
40 mg PO DAILY Qty: 30 1RF
Rinvoq 45 mg tablet extended release 24 hr
45 mg PO DAILY 84 Days Qty: 84 0RF
nicotine 21 mg/24 hr Patch 24 Hour
21 mg transdermal DAILY Qty: 14 0RF
Referrals:
Javier Howe MD [Family Provider] -
Interventions
Interventions:
*Risk Screen - Suicide Last Done: 09/25/24 10:32
*General Assessment Last Done: 09/25/24 10:32
*Neglect/Abuse Screening Last Done: 09/25/24 10:32
*ED COVID-19 Vaccine History Last Done: 09/25/24 11:00
ED- Cardiac Assessment Last Done: 09/25/24 11:00
ED- Neurological Assessment Last Done: 09/25/24 11:00
Discharge Date and Time
Print Language: [place]
[2024-09-25 11:21] LABS: % Basophils 0.4 % (0-2); % Eosinophils 0.6 % (0-6); % Immature Granulocytes 2.4 % (0-0.5); % Monocytes 9.2 % (1.7-9.3); % Neutrophils 51.4 % (42.2-75.2); Absolute Basophils 0.1 10^3/uL (0-0.2); Absolute Eosinophils 0.1 10^3/uL (0-0.7); Absolute Immature Granulocytes 0.3 10^3/uL (0-0.05); Absolute Monocytes 1.3 10^3/uL (0.1-0.6); Absolute Neutrophils 7.2 10^3/uL (1.4-6.5); Hematocrit 30.8 % (39.0-52.0); Hemoglobin 10.6 g/dL (13.0-18.0); Mean Corp Hgb Conc. 34.4 g/dL (33.0-37.0); Mean Corpuscular Hgb 30.9 pg (27.0-31.0); Mean Corpuscular Volume 89.8 fL (80.0-94.0); Mean Platelet Volume 9.2 fL (7.4-10.4); Nucleated Red Blood Cells % 0 % (-); Platelet Count 537 10^3/uL (130-400); Red Blood Cell Count 3.43 10^6/uL (4.70-6.10); Red Cell Dist. Width 15.8 % (11.5-14.5)
[2024-09-25 11:29] LABS: ALT (SGPT) 28 U/L (0-50); AST (SGOT) 24 U/L (17-59); Albumin 3.6 g/dl (3.5-5.0); Alkaline Phosphatase 47 U/L (38-126); Blood Urea Nitrogen 14 mg/dl (9-20); Calcium 8.9 mg/dl (8.4-10.2); Carbon Dioxide 25 mmol/L (22-30); Chloride 102 mmol/L (98-107); Estimated Creatinine Clearance 116 ml/min; Glucose 98 mg/dl (70-99); Sodium 138 mmol/L (135-145); Total Bilirubin 0.2 mg/dl (0.2-1.3); Total Protein 5.6 g/dl (6.3-8.2); eGFR > 60.00
[2024-09-25 11:38] LABS: Troponin I < 0.012 ng/ml
--- NOTE | 2024-09-25 12:13 | HPS.HSE ---
Addendum entered and electronically signed by Audrey Avila MD 09/25/24 14:24:
Acute blood loss anemia 2/2 GI bleed
-Hg down to 10.6 from 14 last month
-trend Hg and transfuse for Hg < 7
Original Note:
Family Physician
-
Family Physician: Javier Howe
Chief Complaint
-
syncope
History of Present Illness
Mr. David May is a 39 yo man with hx UC, ADHD, alcohol use disorder, admission 08/17-08/29/24 for UC flare treated with IV steroids and initiation of Rinvoq, who presents to the ER post syncopal episode followed by an episode of bloody diarrhea.
Patient was sitting at his desk at work when had onset of diaphoresis, hot flash and lightheadedness. He had witnessed syncope for a couple of minutes then went to the bathroom and had an episode of bloody diarrhea. He reports black stools over
the past week without increased frequency. No chest pain or palpitations. No fevers/chills. No shortness of breath. No LE swelling.
He has been on prednisone taper since last admission, down to 30mg daily.
Medical History
Past Medical History
Past Medical History: Reports Other
Additional Past Medical History:
Ulcerative Colitis
ADHD
Seasonal Allergies
Childhood Seizures
Past Surgical History: Reports Other
Additional Past Surgical History:
Hernia Repair
Hydrocele Repair
Perianal Fistulectomy
Social History
Tobacco: Vaping (Prior history of smoking. Uses e-cigarette for the past 10 years.)
Alcohol: Daily (4-6 beers daily.)
Drug: None
Family History
Family History: Not pertinent and Other (Maternal Uncle: UC Paternal Side: Aneurysms)
Allergies / Home Medications
Allergies reflects when Allergies were last updated in [facility].
Home Medications with original date entered in [facility]
Allergy/Medication List:
Allergies
Allergy/AdvReac Type Severity Reaction Status Date / Time
cefaclor [Cefaclor] Allergy Unknown Verified 09/25/24 10:36
phenobarbital Allergy Unknown Verified 09/25/24 10:36
phenytoin Allergy Unknown Verified 09/25/24 10:36
Home Medications
acetaminophen 500 mg tablet (Tylenol Extra Strength) 1,000 mg PO Q6HPRN PRN MILD PAIN 03/10/21
cetirizine 10 mg tablet 10 mg PO DAILY@1200 03/10/21
cholecalciferol (vitamin D3) 50 mcg (2,000 unit) tablet 2,000 units PO DAILY@1200 03/10/21
dextroamphetamine-amphetamine 10 mg tablet 10 mg PO BID 03/10/21
escitalopram oxalate 10 mg tablet 10 mg PO DAILY@1200 03/10/21
multivitamin with folic acid 400 mcg tablet (Tab-A-Mali) 1 tab PO DAILY@1200 03/10/21
fluticasone propionate 50 mcg/actuation nasal spray,suspension 1 spray intranasal DAILYPRN PRN conjestion 08/17/24
folic acid 1 mg tablet 1 mg PO DAILY #30 tabs 08/20/24
thiamine HCl (vitamin B1) 100 mg tablet 100 mg PO BID #60 tabs 08/20/24
nicotine 21 mg/24 hr daily transdermal patch 21 mg transdermal DAILY #14 ea 08/29/24
pantoprazole 40 mg tablet,delayed release 40 mg PO DAILY #30 tabs 08/29/24
prednisone 5 mg tablet See Rx Instructions .Route .COMPLEX #289 tabs 08/29/24
sulfamethoxazole 800 mg-trimethoprim 160 mg tablet 1 tab PO DAILY #14 tabs 08/29/24
upadacitinib 45 mg tablet,extended release 24 hr (Rinvoq) 45 mg PO DAILY 12 weeks #84 tabs 08/29/24
*awaiting med rec
Review of Systems
-
History Source: Patient
A 12 point ROS was completed and negative except as noted: Yes
Physical Exam
Vital Signs
Vital Signs
Temp Pulse Resp BP Pulse Ox
98.7 F 88 12 125/98 100
09/25/24 10:32 09/25/24 12:00 09/25/24 12:00 09/25/24 12:00 09/25/24 12:00
Physical Exam
General: No Apparent Distress
HEENT: PERRLA
Respiratory: Clear; No Wheezes
Cardiac: S1/S2 and Regular Rhythm
GI: Soft and Non Tender
Musculoskeletal: No Edema
Skin: Warm and Dry; No Rash
Neuro: AO x 3
Psych: Calm
Laboratory Results
-
09/25/24 11:04
09/25/24 11:03
Laboratory Results
Total Bilirubin 0.2 mg/dl (0.2-1.3) 09/25/24 11:03
AST 24 U/L (17-59) 09/25/24 11:03
ALT 28 U/L (0-50) 09/25/24 11:03
Alkaline Phosphatase 47 U/L (38-126) 09/25/24 11:03
Troponin I < 0.012 ng/ml 09/25/24 11:03
Data Reviewed
-
Diagnostic Radiology: Report Reviewed by me
Lab Data: Labs Reviewed by me
Impression/Plan
-
Mr. David May is a 39 yo man with hx UC, ADHD, alcohol use disorder, admission 08/17-08/29/24 for UC flare treated with IV steroids and initiation of Rinvoq, who presents to the ER post syncopal episode followed by an episode of bloody diarrhea.
Triage VS: T 98.7, P 112, RR 20, BP 1235/105, SpO2 99%
LABS: WBC 14, Hg 10.6, PLT 537, Na 138, K+ 4.0, Cl 102, CO2 25, BUN 14, Cr 0.8, Glucose 98, liver enzyme WNL
Syncope
-admit to telemetry
-suspect vasovagal given history occurring prior to GI Bleed with prodrome of diaphoresis and lightheadedness; current VSS
-1 L IVF
-get one Troponin with next H/H draw
Hematochezia
Hx Ulcerative Colitis with recent admission last month
-stool testing with C. Diff and culture, ova and parasites
-awaiting home med rec
-GI to see today; hold off on IV steroids for now
-patient was down to 30mg PO QD taper
ADHD
Anxiety
-resume home meds once confirmed
Alcohol Use Disorder
-patients states he cut back on drinking since last admission
-continue [employer] folate, thiamine
DVT PPx SCD
FULL CODE
76 minutes spent on patient care
--- NOTE | 2024-09-25 12:48 | CON.GI ---
Addendum entered and electronically signed by Jacky Burt DO 09/25/24 17:59:
I saw and examined the patient.
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
Comment: Mr Hinton is a 39 y.o male with past medical history of ulcerative pancolitis (on Rinvoq 45 mg q daily and prednisone taper) with recent hospitalization at with UC flare (08/17 - 08/29/24) who presented to the ED with dark tarry stools
and presyncopal symptoms. Patient states his current symptoms are very different where he notes dark black stools over the past week. Denies any prior similar symptoms in the past. Denies any abdominal pain, nausea or vomiting. No nocturnal
diarrhea, bloody stools, urgency or tenesmus or other symptoms to suggest UC flare. No other NSAIDs or ASA. He is currently on Prednisone 30 mg once daily along with pantoprazole for prophylaxis. In the ED, patient was HD-stable with labs notable
for BUN 14 and Technologist Infectious Disease 0.8. LFTs wnl. CRP < 5.00 (previously 30.20 back on 08/28/24). ESR 12. CBC with WBC 14.0, Hgb 10.6 (previously 14.0 on 08/29) and plts 537. Etiology concerning for UGIB given his melena and syncopal symptoms rather than UC flare
based on his symptomatology. His inflammatory markers further support this with reassuring ESR/CRP. BUN:Technologist Infectious Disease ratio is normal and has been on PPI for ppx while on prolonged steroid taper, but still concern for potential UGIB given his risk factors.
Mild leukocytosis as well but in setting of steroids without other concern for infectious etiology. Would benefit from both EGD along with a limited flex-sig to assess disease activity while on Rinvoq and particularly if EGD is unrevealing for an
UGIB.
#Melena c/f #UGIB
#Syncope
#Hx of Ulcerative Pancolitis (on Rinvoq, steroid taper)
Recommendations:
- Okay for CLD, keep NPO at MN
- Trend Hgb with serial CBC, transfuse for goal Hgb > 7.0
- IV PPI 40 mg BiD
- Plan for EGD and Flex-Sig tomorrow, 09/26/2024
- Fecal calprotectin pending, continue to trend CRP q 48 hrs
- No role in IV steroids at this time, may continue his current dose of Prednisone 30 mg once daily as very low suspicion for UC flare
- Strict avoidance of all NSAIDs and opioids while inpatient
- Chemical VTE ppx (ie lovenox) given higher risk for VTE
- Rest of care as outlined below
Addendum entered and electronically signed by VICKY Watson 09/25/24 16:19:
reviewed with Dr. Frederick and Dr. Burt will plan for flex for follow up on UC and response to therapy along with EGD to exclude and risk of Upper GI bleed with recent steroids use.
Original Note:
Consultation
-
Date/Time Consultation Requested: 09/25/24 1230
Date/Time Consultation Performed: 09/25/24 1250
Requesting Provider: Marisabel Troy PA-C
Performing Provider: VICKY Lopez, Jacky Burt MD
Reason for Consultation: syncope
Medical History
Chief Complaint / HPI
Chief Complaint: syncope
History of Present Illness:
Pt is a 38yo with hx GERD, ADHD, ETOH use disorder, hernia repair and albrecht ulcerative colitis. In reviewing with patient he was diagnosed in 2015. He had ER admission 2020 with perianal abscess and was doing well on Lialda 2 tabs daily. He was
last seen in 2022 with colonoscopy in January Altered vascular, erythematous, pseudopolypoid and ulcerated mucosa from sigmoid to cecum (scattered) bx mild active colitis descending and sigmoid. He had change on bowels over several months with wt
loss and was admitted to 08/17/24 til 08/29/24 with UC flare. During admission Pt did not respond to IV steroids and ultimately given Remicade August 22 after flex sig 08/22 with Martinez 3 deep ulcers path neg for CMV). Pt also had CTE with mild
to moderate colitis transverse and descending colon with no additional pathology seen. He also started Rinvoq during admission. Pt had follow up 09/[address] Frederick with plan for continued Rinvoq 45mg and drop to 30mg after 2 months. He was to
continue prednisone taper of 60mg daily for 1 week then taper weekly by 10mg with continued calcium and vitamin D. He now presents today period of diaphoresis, hot flashes and lightheadedness with syncope at work with bloody stool with recent dark
stools over last week. On admission hbg 10.6 down from 14 on 08/29 with continued leukocytosis and thrombocytosis with stable chemistry and normal BUN. Denies NSAID use.
Pt currently admits to mild mid abdominal burning but pain improved from last admission. Stool function has improved but states last week stool looked dark as prior stools red in color. He denies current GERD symptoms but has been on
Pantoprazole prophylaxis with steroids since discharge. He otherwise denies dysphagia, nausea, vomiting or diarrhea. He also admits ? UTI and change in semen.
Past Medical History
Past Medical History: GERD, HTN, Psychiatric (ADHD, panic attacks) and Other ( ulcerative pancolitis, 2020 perianal abscess, ETOH use disorder)
Past Surgical History: Other (inguinal hernia repair)
Social History
Tobacco: Other (E cigarette use )
Alcohol: Daily (4-6 beers daily )
Drug: None
Personal:
Living: With Family
Employment: Employed
Family History
Family History: Other (uncle with UC)
Allergies / Home Medications
Allergy/AdvReac Type Severity Reaction Status Date / Time
cefaclor [Cefaclor] Allergy Unknown Verified 09/25/24 10:36
phenobarbital Allergy Unknown Verified 09/25/24 10:36
phenytoin Allergy Unknown Verified 09/25/24 10:36
�Medication �Instructions �Recorded
acetaminophen 500 mg tablet 1,000 mg PO Q6HPRN PRN MILD PAIN 03/10/21
(Tylenol Extra Strength)
cetirizine 10 mg tablet 10 mg PO DAILY@1200 03/10/21
cholecalciferol (vitamin D3) 50 2,000 units PO DAILY@1200 03/10/21
mcg (2,000 unit) tablet
dextroamphetamine-amphetamine 10 10 mg PO BID 03/10/21
mg tablet
escitalopram oxalate 10 mg tablet 10 mg PO DAILY@1200 03/10/21
multivitamin with folic acid 400 1 tab PO DAILY@1200 03/10/21
mcg tablet (Tab-A-Mali)
fluticasone propionate 50 1 spray intranasal DAILYPRN PRN 08/17/24
mcg/actuation nasal conjestion
spray,suspension
folic acid 1 mg tablet 1 mg PO DAILY #30 tabs 08/20/24
thiamine HCl (vitamin B1) 100 mg 100 mg PO BID #60 tabs 08/20/24
tablet
nicotine 21 mg/24 hr daily 21 mg transdermal DAILY #14 ea 08/29/24
transdermal patch
pantoprazole 40 mg tablet,delayed 40 mg PO DAILY #30 tabs 08/29/24
release
prednisone 5 mg tablet See Rx Instructions .Route 08/29/24
.COMPLEX #289 tabs
sulfamethoxazole 800 1 tab PO DAILY #14 tabs 08/29/24
mg-trimethoprim 160 mg tablet
upadacitinib 45 mg tablet,extended 45 mg PO DAILY 12 weeks #84 tabs 08/29/24
release 24 hr (Rinvoq)
Review of Systems
-
History Source: Patient and Family
Constitutional: Reports Weight Gain (some gain with steroid use ) and Fatigue
EENT: Reports No Symptoms
Respiratory: Reports No Symptoms
Cardiac: Reports No Symptoms
Abdomen/GI: Reports Abdominal Pain (burning pain), Diarrhea and Black Stools (dark stools)
: Reports No Symptoms and Other (some change in urine and semen )
Musculoskeletal: Reports No Symptoms
Skin: Reports No Symptoms
Endocrine: Reports No Symptoms
Hematologic/Lymphatic: Reports Bleeding
Vital Signs
Temp Pulse Resp BP Pulse Ox
98.7 F 88 12 125/98 100
09/25/24 10:32 09/25/24 12:00 09/25/24 12:00 09/25/24 12:00 09/25/24 12:00
Physical Exam
Exam
General: Well Developed, Well Nourished and No Apparent Distress
HEENT: Normocephalic and Anicteric
Respiratory: Clear
Cardiac: Regular Rhythm
GI: Soft, Non Distended and Tender (lower abdomen )
Rectal: Other (dark red burgundy stool on exam)
Musculoskeletal: No Clubbing and No Cyanosis
Skin: Warm and Dry
Neuro: Awake, Alert and AO x 3
Psych: Calm
Results
WBC 14.0 10^3/uL (4.8-10.8) H 09/25/24 11:04
Hgb 10.6 g/dL (13.0-18.0) L 09/25/24 11:04
Hct 30.8 % (39.0-52.0) L 09/25/24 11:04
MCV 89.8 fL (80.0-94.0) 09/25/24 11:04
Plt Count 537 10^3/uL (130-400) H 09/25/24 11:04
Absolute Neuts (auto) 7.2 10^3/uL (1.4-6.5) H 09/25/24 11:04
Sodium 138 mmol/L (135-145) 09/25/24 11:03
Potassium 4.0 mmol/L (3.5-5.1) 09/25/24 11:03
Chloride 102 mmol/L (98-107) 09/25/24 11:03
Carbon Dioxide 25 mmol/L (22-30) 09/25/24 11:03
BUN 14 mg/dl (9-20) 09/25/24 11:03
Creatinine 0.8 mg/dL (0.7-1.3) 09/25/24 11:03
Calcium 8.9 mg/dl (8.4-10.2) 09/25/24 11:03
Total Bilirubin 0.2 mg/dl (0.2-1.3) 09/25/24 11:03
AST 24 U/L (17-59) 09/25/24 11:03
ALT 28 U/L (0-50) 09/25/24 11:03
Alkaline Phosphatase 47 U/L (38-126) 09/25/24 11:03
Diagnostic Image Results:
08/17/24 CT Abd/pel W Iv And Oral Contr
IMPRESSION: Findings compatible with diffuse colitis, greatest involvement of the descending colon and the transverse colon, relatively sparing the hepatic flexure and right colon. Patient has a history of ulcerative colitis.
Subtle nodular wall thickening involving the distal ileum, suggestive of so-called 'backwash ileitis' given the clinical history.
Minimal amount of free fluid within the right inferior pelvis.
No evidence for bowel obstruction. No evidence for free intraperitoneal air
08/24/24 CT Enterography
1. Chronic uncomplicated mild to moderate colitis of the transverse and descending colon. No additional bowel pathology is seen.
2. No other significant abnormalities within the abdomen or pelvis.
Prior GI Procedures:
----01/2024- colonoscopy [facility] with perianal rash, Altered vascular, erythematous, pseudopolypoid and ulcerated mucosa from sigmoid to cecum (scattered). In between areas were not inflamed but congested.
Biopsied. Ileum normal. bx mild active colitis descending and sigmoid
������----12/2017 colonoscopy, assessment of albrecht ulcerative colitis on maintenance 2 pills of Lialda. 12/18/17: endoscopic remission. Biopsies: Slight activity in the cecum, ascending, and rectum. Transverse and sigmoid are quiescent. would continue
maintenance therapy. If he has a flare on maintenance will need to consider stepping up therapy.
�������---12/2017 EGD, suspected EOE. Second endoscopy on twice a day PPI 8 weeks. Improved but consistent endoscopic concern for EOE however biopsies revealed no eosinophils. This is consistent with reflux. 2cm hiatal hernia. Normal stomach and
duodenum. Plan: Continue once daily as a medication for now. In 1 year will attempt to decrease PPI use
�������----2016 Colonoscopy: MARTINEZ 2 throughout the entire colon with Path: moderate to severe evidence of chronicity throughout the colon with mild activity in the left colon. Consistent with albrecht ulcerative colitis. Normal TI with normal biopsies.
08/22/24 - flex sig
- Mild (Martinez Score 1) ulcerative colitis in the rectum
and sigmoid, worsened since the last examination.
Biopsied.
- Severe (Martinez Score 3) ulcerative colitis in the
descending and transverse colon - significant deep
ulcerations with blood and purulent material exuding
from the deep ulcers, worsened since the last
examination. Biopsied.
bx focal moderate chronic active colitis, neg dysplasia and granulomas neg CMV
Assessment / Plan
-
Pt is a 38yo with hx GERD, ADHD, ETOH use disorder, hernia repair and albrecht ulcerative colitis. In reviewing with patient he was diagnosed in 2015. He had ER admission 2020 with perianal abscess and was doing well on Lialda 2 tabs daily. He was
last seen in 2022 with colonoscopy in January Altered vascular, erythematous, pseudopolypoid and ulcerated mucosa from sigmoid to cecum (scattered) bx mild active colitis descending and sigmoid. He had change on bowels over several months with wt
loss and was admitted to 08/17/24 til 08/29/24 with UC flare. During admission Pt did not respond to IV steroids and ultimately given Remicade August 22 after flex sig 08/22 with Martinez 3 deep ulcers path neg for CMV). Pt also had CTE with mild
to moderate colitis transverse and descending colon with no additional pathology seen. He also started Rinvoq during admission. Pt had follow up 09/[address] Frederick with plan for continued Rinvoq 45mg and drop to 30mg after 2 months. He was to
continue prednisone taper of 60mg daily for 1 week then taper weekly by 10mg with continued calcium and vitamin D. He now presents today period of diaphoresis, hot flashes and lightheadedness with syncope at work with bloody stool with recent dark
stools over last week. On admission hbg 10.6 down from 14 on 08/29 with continued leukocytosis and thrombocytosis with stable chemistry and normal BUN. Denies NSAID use.
-syncope
-recent dark stools-- burgundy red on exam
-recent admission with UC flare s/p surg eval, Remicade, steroid use and start of Rinvoq
-leukocytosis
-anemia
- hx prior perianal abscess not noted on follow up CT
-GERD with increased symptoms
-wt loss
other med problems:
-ADHD
-hernia repair
-daily ETOH use prior to last admission decreased use since admission
PLAN:
etiology of abdominal pain with diarrhea and bleeding related to continued UC flare vs infectious process vs other less likely upper source but in differential with steroid use
rectal exam with dark red burgundy stool likely lower GI bleeding
agree with stool studies
cont Po Prednisone 30mg daily -- may need to consider IV steroid use if c-diff neg
check CRP, ESR, and fecal macey
cont Rinvoq daily
s/p single dose Remicade last admission 08/22
cont clear diet
cont PPI
trend hbg with drop since prior admission
change to Lovenox as high risk for DVT with active IBD
discussed ETOH abstinence monitor for withdrawal though cut back from prior admission
Pt seen by Colorectal surgery last admission-- he is hoping to avoid surgery but if not improving will need consult
-
-
Thank you for consultation and allowing me to participate in the patient's care. Please call the economics department chair GI physician during the after hours with any questions or concerns.
[2024-09-25] MEDS: PROTONIX IV 40 MG IV ×2 (13:09→20:47)
[2024-09-25] MEDS: NSS (PRESERVATIVE FREE) 10 ML IV ×2 (13:09→20:47)
[2024-09-25] MEDS: NSS 1000 IV (13:10)
--- NOTE | 2024-09-25 14:13 | CON.CRS ---
Consultation
-
Date/Time Consultation Requested: 09/25/2024, 12:35
Date/Time Consultation Performed: 09/25/2024, 15:00
Requesting Provider: Monique Avila MD
Performing Provider: Javier Howe MD
Reason for Consultation: ulcerative colitis
Medical History
-
Chief Complaint: syncope
History of Present Illness:
39-year-old male with a history of ulcerative colitis, presents to [facility] ER due to diaphoresis, hot flashes, lightheadedness with syncope at work, bloody stools, and abdominal pain. The patient had recently been admitted to [facility] from 08/17/2024 through 08/29/2024 due to an ulcerative colitis flare. He was diagnosed with ulcerative pancolitis back in 2015 and has a history of perianal abscesses in the past status post incision and drainage by Dr. Howe. Back in
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 He underwent an EGD and sigmoidoscopy by Dr. Frederick on 08/22/2024 which showed mild ulcerative colitis in
the rectum and sigmoid which is worsened since last exam and also severe ulcerative colitis in the descending and transverse colon with deep ulcerations and blood with purulent material from the deep ulcers. He then was started on Remicade on
08/23/2024 per GI. He underwent a CT enterography on 08/25/2024 which did not show any small bowel disease. He was switched Rinvoq on 08/25/2024 and put on a steroid taper. Ultimately his abdominal pain and frequency of bowels improved and he was
discharged.
He returned today to [facility] given diaphoresis, hot flashes, lightheadedness with syncope and bloody stools. On admission his WBC is 14.0. He was discharged with a WBC of 16.0 earlier this month. He has remained afebrile. He has been
intermittently tachycardic with a heart rate of 88-112. No imaging has been ordered. GI has seen the patient in consult today who recommends continuing oral prednisone 30 mg daily, CRP, ESR, and fecal Tre procalcitonin and continuing rinvoq. We
have been consulted for further surgical opinion.
Past Medical History
Past Medical History: Other (GERD, HTN, Psychiatric (ADHD, panic attacks) and Other ( ulcerative pancolitis, 2020 perianal abscess))
Past Surgical History: Hernia Repair
Social History
Tobacco: Smoker (e cigarette use)
Alcohol: Daily
Drug: None
Living: With Family
Family History
Family History: Reviewed & Not Pertinent
Allergies / Home Medications
Allergy/AdvReac Type Severity Reaction Status Date / Time
cefaclor [Cefaclor] Allergy Unknown Verified 09/25/24 10:36
phenobarbital Allergy Unknown Verified 09/25/24 10:36
phenytoin Allergy Unknown Verified 09/25/24 10:36
�Medication �Instructions �Recorded �Confirmed �Type
cetirizine 10 mg tablet 10 mg PO DAILY@119903/10/21 09/25/24 History
cholecalciferol (vitamin D3) 50 2,000 units PO DAILY@119903/10/21 09/25/24 History
mcg (2,000 unit) tablet
dextroamphetamine-amphetamine 10 10 mg PO BID 03/10/21 09/25/24 History
mg tablet
escitalopram oxalate 10 mg tablet 10 mg PO DAILY@119903/10/21 09/25/24 History
multivitamin with folic acid 400 1 tab PO DAILY@1200 03/10/21 09/25/24 History
mcg tablet (Tab-A-Mali)
fluticasone propionate 50 1 spray intranasal DAILYPRN PRN 08/17/24 09/25/24 History
mcg/actuation nasal conjestion
spray,suspension
folic acid 1 mg tablet 1 mg PO DAILY #30 tabs 08/20/24 09/25/24 Rx
thiamine HCl (vitamin B1) 100 mg 100 mg PO BID #60 tabs 08/20/24 09/25/24 Rx
tablet
pantoprazole 40 mg tablet,delayed 40 mg PO DAILY #30 tabs 08/29/24 09/25/24 Rx
release
prednisone 5 mg tablet See Rx Instructions .Route 08/29/24 09/25/24 Rx
.COMPLEX #289 tabs
sulfamethoxazole 800 1 tab PO DAILY #14 tabs 08/29/24 09/25/24 Rx
mg-trimethoprim 160 mg tablet
upadacitinib 45 mg tablet,extended 45 mg PO DAILY 12 weeks #84 tabs 08/29/24 09/25/24 Rx
release 24 hr (Rinvoq)
Lactobac no.2-Bifidobac no.1-S. 1 cap PO DAILY 09/25/24 09/25/24 History
thermo 112.5 billion cell capsule
(Visbiome)
melatonin 5 mg tablet 5 mg PO HS PRN sleep 09/25/24 09/25/24 History
Review of Systems
-
History Source: Patient
Constitutional: Other (lightheadedness, syncope)
Abdomen/GI: Abdominal Pain and Bloody Stools
A 10 point review of systems was completed, and was negative except as per HPI.
Physical Exam
Vital Signs
Temp 98.7 F 09/25/24 10:32
Pulse 89 09/25/24 13:45
Resp Rate 15 09/25/24 13:45
Blood pressure 124/96 09/25/24 13:00
SaO2 100 09/25/24 13:45
09/24/24 09/25/24 09/26/24
06:59 06:59 06:59
Actual Weight 73.4 kg
Lab Results / Allergies
09/25/24 11:04
09/25/24 11:03
WBC 14.0 10^3/uL (4.8-10.8) H 09/25/24 11:04
Hgb 10.6 g/dL (13.0-18.0) L 09/25/24 11:04
Hct 30.8 % (39.0-52.0) L 09/25/24 11:04
Plt Count 537 10^3/uL (130-400) H 09/25/24 11:04
Abs Immat Gran (auto) 0.3 10^3/uL (0-0.05) H 09/25/24 11:04
Neutrophils % 51.4 % (42.2-75.2) 09/25/24 11:04
Allergy/AdvReac Type Severity Reaction Status Date / Time
cefaclor [Cefaclor] Allergy Unknown Verified 09/25/24 10:36
phenobarbital Allergy Unknown Verified 09/25/24 10:36
phenytoin Allergy Unknown Verified 09/25/24 10:36
Physical Exam
General: Well Developed, Well Nourished and No Apparent Distress
GI: Soft and Non Tender
Skin: Warm and Dry
Neuro: AO x 3
Data Reviewed
-
Labs: Labs Reviewed by me, Discussed with Physician and Discussed with Patient
Old Records: Reviewed
Assessment / Plan
-
Assessment: 39-year-old male with a history of ulcerative colitis and recently hospitalized at [facility] due to an ulcerative colitis flare on oral prednisone and rinvoq, presents to [facility] with lightheadedness syncope abdominal
pain and bloody stools
Plan:
-No plans for surgery at this time, if worsens he may require a subtotal colectomy with ileostomy
-UC management per GI
-Trend labs
-CRP, procalcitonin
-Will follow
--- NOTE | 2024-09-25 14:54 | PTCARENOTE ---
Received patient from ED on stretcher. Pulled over with assist x2. Placed on tele#[id number] NSR. Oriented to room and use of call carbone. Denies pain/discomfort. Parents at bedside. Walked from bed to bathroom shortly after arriving to room and had one
episode of bloody diarrhea. Ordered a clear liquid diet. Call carbone within reach.
[2024-09-25 14:59] LABS: C-Reactive Protein < 5.00 mg/L (0.0-10.00)
[2024-09-25 15:02] LABS: Iron 62 ug/dl (49-181)
[2024-09-25 15:05] LABS: Erythrocyte Sed Rate 12 mm/hour (0-20)
[2024-09-25 15:11] LABS: Percent Saturation 20 % (20-50); Total Iron Binding Capacity 299 ug/dl (261-462)
[2024-09-25] MEDS: NICODERM TRANSDERMAL 21 MG TRANSDERM (17:34)
[2024-09-25] MEDS: LOVENOX 40 MG SC (17:36)
[2024-09-25 18:49] LABS: Hematocrit 24.6 % (39.0-52.0); Hemoglobin 8.5 g/dL (13.0-18.0)
[2024-09-25 19:09] LABS: Troponin I < 0.012 ng/ml
[2024-09-25] MEDS: VITAMIN B1 100 MG PO (20:47)
--- NOTE | 2024-09-25 22:59 | W.PN.UPDATE ---
Addendum entered and electronically signed by Audrey Avila MD 09/25/24 23:42:
repeat Hg 9.5; 8.5 was lab error - will therefore hold off on further transfusion right now, continue to trend q6hr
Original Note:
Update Note
Progress Note Update
Hg dropped to 8.5 and patient just had another bloody bowel movement. Blood consent signed and will give a unit of blood now.
[2024-09-25 23:31] LABS: Hemoglobin 9.5 g/dL (13.0-18.0)
[2024-09-25] MEDS: MELATONIN 5 MG PO (23:43)
[2024-09-25] MEDS: TYLENOL 1000 MG PO (23:45)
[2024-09-26] VITALS (14 sets, daily range): BP systolic 16–135; BP diastolic 77–90; PULSE 74–115
[2024-09-26 06:39] LABS: Hematocrit 25.6 % (39.0-52.0); Hemoglobin 8.4 g/dL (13.0-18.0); Mean Corp Hgb Conc. 32.8 g/dL (33.0-37.0); Mean Corpuscular Hgb 30.2 pg (27.0-31.0); Mean Corpuscular Volume 92.1 fL (80.0-94.0); Platelet Count 424 10^3/uL (130-400); Red Blood Cell Count 2.78 10^6/uL (4.70-6.10); Red Cell Dist. Width 15.9 % (11.5-14.5); White Blood Cell Count 9.4 10^3/uL (4.8-10.8)
[2024-09-26 06:48] LABS: ALT (SGPT) 25 U/L (0-50); AST (SGOT) 22 U/L (17-59); Alkaline Phosphatase 54 U/L (38-126); Blood Urea Nitrogen 14 mg/dl (9-20); Calcium 8.7 mg/dl (8.4-10.2); Carbon Dioxide 30 mmol/L (22-30); Chloride 104 mmol/L (98-107); Estimated Creatinine Clearance 103 ml/min; Glucose 90 mg/dl (70-99); Potassium 4.6 mmol/L (3.5-5.1); Sodium 138 mmol/L (135-145); Total Bilirubin 0.3 mg/dl (0.2-1.3); Total Protein 4.7 g/dl (6.3-8.2); eGFR > 60.00
[2024-09-26] MEDS: NSS (PRESERVATIVE FREE) 10 ML IV ×2 (08:16→20:16)
[2024-09-26] MEDS: VITAMIN B1 100 MG PO ×2 (08:18→20:16)
[2024-09-26] MEDS: DELTASONE 30 MG PO (08:18)
[2024-09-26] MEDS: OSCAL 500 + D 500 MG PO (08:18)
[2024-09-26] MEDS: BACTRIM DS 800 MG/160 MG 1 TABLET PO (08:18)
[2024-09-26] MEDS: PROTONIX IV 40 MG IV ×2 (08:18→20:15)
[2024-09-26] MEDS: NICODERM TRANSDERMAL 21 MG TRANSDERM (08:19)
[2024-09-26] MEDS: LEXAPRO 10 MG PO (11:31)
[2024-09-26] MEDS: ZYRTEC 10 MG PO (11:31)
[2024-09-26] MEDS: VITAMIN D3 (cholecalciferol) 50 MCG PO (11:31)
[2024-09-26] MEDS: NON-FORMULARY ITEM 45 MG PO (11:31)
--- NOTE | 2024-09-26 12:48 | W.PN.HOSP.TC ---
Today's Communication/Plan
-
Monitor vital signs see plan
Continue to monitor hemoglobin
Transfuse as necessary
Continue with steroids
GI scope tomorrow
Assessment / Plan
Assessment / Plan
General: No Apparent Distress
HEENT: PERRLA
Respiratory: Clear; No Wheezes
Cardiac: S1/S2 and Regular Rhythm
GI: Soft and Non Tender
Musculoskeletal: No Edema
Skin: Warm and Dry; No Rash
Neuro: AO x 3
Psych: Calm
Syncope likely vasovagal and possible GI bleed
Continue to trend hemoglobin
Hematochezia
Hx Ulcerative Colitis with recent admission last month
C. difficile negative
Status post EGD and flex sig 09/26 with bleeding, plan for scope again tomorrow
GI following
Colorectal following
Continue with steroids
Clears for now, n.p.o. past midnight
-awaiting home med rec
-GI to see today; hold off on IV steroids for now
-patient was down to 30mg PO QD taper
Used to be on Remicade, now on Rinvoq
ADHD
Anxiety
Alcohol Use Disorder
-patients states he cut back on drinking since last admission
DVT PPx SCD
FULL CODE
Anticipated Discharge: 24 - 48 hours
Subjective/Interval History
-
Date of Service: September 26, 2024
denies pain
Objective Data
-
Labs:
Laboratory Results
09/26/24
06:06
WBC 9.4
Hgb 8.4 L
Hct 25.6 L
Plt Count 424 H D
Sodium 138
Potassium 4.6
Chloride 104
Carbon Dioxide 30
BUN 14
Creatinine 0.9
Glucose 90
Calcium 8.7
Total Bilirubin 0.3
AST 22
ALT 25
Alkaline Phosphatase 54
Vital Signs:
Vital Signs
Temp Pulse Resp BP Pulse Ox
98.0 F 74 16 112/77 100
09/26/24 11:41 09/26/24 11:41 09/26/24 11:41 09/26/24 11:41 09/26/24 11:41
I&O
09/25/24 09/26/24 09/27/24
06:59 06:59 06:59
Intake Total 480 / 480
Balance 480 / 480
--- NOTE | 2024-09-26 12:48 | W.PN.CRS1 ---
Today's Communication / Plan
-
Sigmoidoscopy with GI today
Assessment/Plan
-
Assessment: 39-year-old male with a history of ulcerative colitis and recently hospitalized at [facility] due to an ulcerative colitis flare on oral prednisone and rinvoq, presents to [facility] with lightheadedness syncope abdominal
pain and bloody stools
Plan:
-No plans for surgery at this time, if worsens he may require a subtotal colectomy with ileostomy
-Plan is for sigmoidoscopy today with GI
-UC management per GI
-Trend labs
-CRP, procalcitonin
-Will follow
Subjective Data
Subjective Data
Date of Service: September 26, 2024
Patient states he feels like 'nothing is new'. He has no bleeding. He is no loose stools. He has no pain. He is hungry.
Objective Data
-
Vital Signs
Temp Pulse Resp BP Pulse Ox
98.0 F 74 16 112/77 100
09/26/24 11:41 09/26/24 11:41 09/26/24 11:41 09/26/24 11:41 09/26/24 11:41
Intake & Output
09/25/24 09/26/24 09/27/24
06:59 06:59 06:59
Intake Total 480 / 480
Balance 480 / 480
Intake:
Oral fluids 480 / 480
Other:
Number of approximated MODERATE 2
amounts of urine
Lab Results
09/26/24 06:06
Physical Exam
-
General: No Acute Distress and AOx3
Abdomen: Soft, Non Distended and Non Tender
Skin: Warm and Dry
[2024-09-26 14:01] LABS: Hemoglobin 8.1 g/dL (13.0-18.0)
[2024-09-26] MEDS: MIRALAX 51 GRAMS PO ×3 (16:05→22:05)
[2024-09-26] MEDS: LOVENOX 40 MG SC (18:19)
[2024-09-26 20:24] LABS: Hemoglobin 8.3 g/dL (13.0-18.0)
[2024-09-26] MEDS: MELATONIN 5 MG PO (22:05)
[2024-09-27] VITALS (8 sets, daily range): BP systolic 10–117; BP diastolic 72–89
[2024-09-27 07:32] LABS: Hematocrit 25.4 % (39.0-52.0); Hemoglobin 8.4 g/dL (13.0-18.0); Mean Corp Hgb Conc. 33.1 g/dL (33.0-37.0); Mean Corpuscular Hgb 29.7 pg (27.0-31.0); Mean Corpuscular Volume 89.8 fL (80.0-94.0); Mean Platelet Volume 9.1 fL (7.4-10.4); Platelet Count 456 10^3/uL (130-400); Red Blood Cell Count 2.83 10^6/uL (4.70-6.10); Red Cell Dist. Width 15.8 % (11.5-14.5); White Blood Cell Count 10.1 10^3/uL (4.8-10.8)
[2024-09-27 07:51] LABS: ALT (SGPT) 29 U/L (0-50); AST (SGOT) 25 U/L (17-59); Albumin 3.2 g/dl (3.5-5.0); Alkaline Phosphatase 48 U/L (38-126); Blood Urea Nitrogen 8 mg/dl (9-20); Calcium 9.2 mg/dl (8.4-10.2); Carbon Dioxide 30 mmol/L (22-30); Chloride 102 mmol/L (98-107); Estimated Creatinine Clearance 93 ml/min; Glucose 83 mg/dl (70-99); Potassium 4.2 mmol/L (3.5-5.1); Sodium 141 mmol/L (135-145); Total Bilirubin 0.2 mg/dl (0.2-1.3); Total Protein 5.2 g/dl (6.3-8.2); eGFR > 60.00
[2024-09-27] MEDS: OSCAL 500 + D 500 MG PO (08:10)
[2024-09-27] MEDS: PROTONIX IV 40 MG IV (08:10)
[2024-09-27] MEDS: DELTASONE 30 MG PO (08:10)
[2024-09-27] MEDS: VITAMIN B1 100 MG PO (08:10)
[2024-09-27] MEDS: NSS (PRESERVATIVE FREE) 10 ML IV (08:10)
[2024-09-27] MEDS: NON-FORMULARY ITEM 45 MG PO (08:11)
[2024-09-27] MEDS: BACTRIM DS 800 MG/160 MG 1 TABLET PO (08:11)
[2024-09-27] MEDS: NICODERM TRANSDERMAL 21 MG TRANSDERM (08:12)
[2024-09-27 08:45] LABS: % Basophils 0.4 % (0-2); % Eosinophils 0.8 % (0-6); % Lymphocytes 55.3 % (20.5-51.1); % Monocytes 8.6 % (1.7-9.3); % Neutrophils 32.9 % (42.2-75.2); Absolute Eosinophils 0.1 10^3/uL (0-0.7); Absolute Immature Granulocytes 0.2 10^3/uL (0-0.05); Absolute Lymphocytes 5.6 10^3/uL (1.2-3.4); Absolute Monocytes 0.9 10^3/uL (0.1-0.6); Absolute Neutrophils 3.3 10^3/uL (1.4-6.5); Nucleated Red Blood Cells % 0 % (-)
--- NOTE | 2024-09-27 10:38 | W.PN.HOSP.TC ---
Today's Communication/Plan
-
Monitor vital signs
see plan
dc today; tolerated LRD
repeat CBC next week with pcp
time of discharge 37minutes
Assessment / Plan
Assessment / Plan
General: No Apparent Distress
HEENT: PERRLA
Respiratory: Clear; No Wheezes
Cardiac: S1/S2 and Regular Rhythm
GI: Soft and Non Tender
Musculoskeletal: No Edema
Skin: Warm and Dry; No Rash
Neuro: AO x 3
Psych: Calm
Syncope likely vasovagal and possible GI bleed
Continue to trend hemoglobin
Hemoglobin now in 8's, follow-up with repeat CBC next week with primary care provider
Hematochezia
Hx Ulcerative Colitis with recent admission last month
C. difficile negative
Status post EGD and flex sig 09/26 with bleeding, s/p cscope 09/27 with angiodysplasia of colon with hemorrhage, bleeding stopped and there is no further bleeding per GI after colonoscopy. Tolerated low residue diet. Discharge today
GI following
Colorectal following
Continue with steroids
-patient was down to 30mg PO QD taper
Used to be on Remicade, now on Rinvoq
ADHD
Anxiety
Alcohol Use Disorder
-patients states he cut back on drinking since last admission
DVT PPx SCD
FULL CODE
Anticipated Discharge: Today
Subjective/Interval History
-
Date of Service: September 27, 2024
denies abdominal pain
Objective Data
-
Labs:
Laboratory Results
09/27/24
06:40
WBC 10.1
Hgb 8.4 L
Hct 25.4 L
Plt Count 456 H
Sodium 141
Potassium 4.2
Chloride 102
Carbon Dioxide 30
BUN 8 L
Creatinine 1.0
Glucose 83
Calcium 9.2
Total Bilirubin 0.2
AST 25
ALT 29
Alkaline Phosphatase 48
Vital Signs:
Vital Signs
Temp Pulse Resp BP Pulse Ox
97.2 F 68 10 104/78 100
09/27/24 10:15 09/27/24 10:26 09/27/24 10:26 09/27/24 10:15 09/27/24 10:26
I&O
09/26/24 09/27/24 09/28/24
06:59 06:59 06:59
Intake Total 480 / 480 2900 / 2900
Balance 480 / 480 2900 / 2900
[2024-09-27] MEDS: ZYRTEC 10 MG PO (11:42)
[2024-09-27] MEDS: VITAMIN D3 (cholecalciferol) 50 MCG PO (11:42)
[2024-09-27] MEDS: LEXAPRO 10 MG PO (11:42)
--- NOTE | 2024-09-27 12:13 | W.DCSUMMARY ---
Discharge Summary
Discharge Data
Date of Admission: 09/25/24
Date of Discharge: 09/27/24
-
Pending Results: No
Hospital Course
39-year-old male with past medical history of ulcerative colitis, ADHD, anxiety, alcohol use disorder came to the hospital after syncopal episode which was likely thought was secondary to vasovagal and acute blood loss anemia from gastrointestinal
bleed. Patient was seen by gastroenterology throughout hospitalization. It did not appear ulcerative colitis flareup. Gastroenterology performed EGD and flexible sigmoidoscopy on 09/26/2024 with this showed some rectal bleeding. Patient then
later got a colonoscopy on 09/27 which showed angiodysplasia of colon with hemorrhage where bleeding was stopped and there was no further bleeding per GI after colonoscopy. Patient was able to tolerate low residue diet prior to discharge. He was
instructed to get a repeat hemoglobin with his primary care provider on discharge. Since his symptoms continue to improve and he was able to tolerate diet, he was then discharged home with instructions to follow-up with all the physicians
outpatient.
Discharge Plan
-
Patient Disposition: Home (Routine Discharge)
Discharge Diagnosis/Procedures: Acute gastrointestinal bleed
Acute blood loss anemia secondary to gastrointestinal bleed
Diet: Low Residue
Activity: As tolerated
Driving Restrictions: As prior to admission
Bathing Restrictions: None
Blood Work: CBC next week with primary care provider
Activity Restrictions/Additional Instructions:
Please follow-up with primary care provider early next week
Referrals:
Javier Howe MD [Family Provider] - in less than 1 week
Peg Frederick DO [Active] -
Prescriptions:
Continued
escitalopram oxalate 10 MG tablet
10 mg PO DAILY@1200
cholecalciferol (vitamin D3) 2,000 UNITS tablet
2,000 units PO DAILY@1200
cetirizine 10 MG tablet
10 mg PO DAILY@1200
dextroamphetamine-amphetamine 10 MG tablet
10 mg PO BID
Patient Comments:
last filled 08/05/24 for 60 tablets over 30 days
multivitamin with folic acid [Tab-A-Mali] 1 TABLET tablet
1 tab PO DAILY@1200
fluticasone propionate 50 mcg/actuation Moyers,Suspension
1 spray INTRANASAL DAILYPRN PRN (Reason: conjestion)
thiamine HCl (vitamin B1) 100 mg Tablet
100 mg PO BID Qty: 60 0RF
sulfamethoxazole-trimethoprim 800-160 mg Tablet
1 tab PO DAILY Qty: 14 0RF
Visbiome 112.5 billion cell Capsule
1 cap PO DAILY
melatonin 5 mg Tablet
5 mg PO HS PRN (Reason: sleep)
prednisone 5 mg tablet
See Rx Instructions .ROUTE .COMPLEX
Rx Instructions:
60 mg/day x6 day, 50 mg/day x1 week, 40 mg/day x1 week, 30 mg/day x1 week, 20 mg/day x1 week, 10 mg/day x1 week, 5 mg/day x1 week
pantoprazole 40 mg tablet,delayed release (DR/EC)
40 mg PO DAILY
folic acid 1 mg tablet
1 mg PO DAILY
Rinvoq 45 mg tablet extended release 24 hr
45 mg PO DAILY
Discharge Orders:
Discharge Patient (As Directed); Ordered 09/27/24
Ordered By: Alfred Busby
Discharge Date and Time
Discharge Date/Time: 09/27/24 13:17
Print Language: KYRGYZ
--- NOTE | 2024-09-27 13:22 | CM ---
Patient discharged home prior to CM able to do IA. Home no needs.
[2024-09-29 09:20] LABS: Calprotectin, Fecal 191 ug/g (<=49)
== END 2024-09-27 13:17 | disposition home or self-care (01) | DRG 378 ==
LOC: 3 WEST ACU 13:24
PROVIDERS: Internal Medicine; Nurse Practitioner Adult Health; Physician Assistant; ADMITTING PHYSICIAN Student in an Organized Health Care Education/Training Program; ATTENDING PHYSICIAN Internal Medicine; CONSULT PHYSICIAN Student in an Organized Health Care Education/Training Program; EMERGENCY PHYSICIAN Emergency Medicine; OTHER PHYSICIAN Surgery
PROC: 0DB58ZX Excision of Esophagus, Via Natural or Artificial Opening Endoscopic, Diagnostic (ICD-10-PCS; 2024-09-26)
DX: K55.21 Angiodysplasia of colon with hemorrhage (principal); D62 Acute posthemorrhagic anemia; F17.290 Nicotine dependence, other tobacco product, uncomplicated; F90.9 Attention-deficit hyperactivity disorder, unspecified type; F41.9 Anxiety disorder, unspecified; F10.10 Alcohol abuse, uncomplicated; K44.9 Diaphragmatic hernia without obstruction or gangrene; K21.9 Gastro-esophageal reflux disease without esophagitis; K22.89 Other specified disease of esophagus
CPT/HCPCS: 88305; 80053; 82728; 83540; 83550; 83993; 84484; 85014; 85018; 85025; 85027; 85652; 86140; 86850; 86900; 86901; 87045; 87046; 87324; 87328; 87329; 87427; 87449; 93005; 96361; 96374; 99284; 99406

== ENCOUNTER 2024-10-18 16:14 | Inpatient (IN) | payer OTHER, SELFPAY ==
[2024-10-18] VITALS (7 sets, daily range): BP systolic 117–141; BP diastolic 77–95; BMI 26.6; BMI 27.0
[2024-10-18] MEDS: NSS 1000 IV ×3 (13:43→23:36)
[2024-10-18 13:45] LABS: % Basophils 0.2 % (0-2); % Eosinophils 0.4 % (0-6); % Immature Granulocytes 0.7 % (0-0.5); % Lymphocytes 19.5 % (20.5-51.1); % Monocytes 7.2 % (1.7-9.3); Absolute Immature Granulocytes 0.1 10^3/uL (0-0.05); Absolute Monocytes 0.7 10^3/uL (0.1-0.6); Absolute Neutrophils 7.3 10^3/uL (1.4-6.5); Hematocrit 25.4 % (39.0-52.0); Hemoglobin 8.3 g/dL (13.0-18.0); Mean Corp Hgb Conc. 32.7 g/dL (33.0-37.0); Mean Corpuscular Hgb 28.5 pg (27.0-31.0); Mean Corpuscular Volume 87.3 fL (80.0-94.0); Mean Platelet Volume 9.1 fL (7.4-10.4); Nucleated Red Blood Cells % 0 % (-); Platelet Count 414 10^3/uL (130-400); Red Blood Cell Count 2.91 10^6/uL (4.70-6.10); Red Cell Dist. Width 14.4 % (11.5-14.5); White Blood Cell Count 10.1 10^3/uL (4.8-10.8)
[2024-10-18 14:01] LABS: ALT (SGPT) 27 U/L (0-50); AST (SGOT) 30 U/L (17-59); Albumin 3.9 g/dl (3.5-5.0); Alkaline Phosphatase 74 U/L (38-126); Blood Urea Nitrogen 19 mg/dl (9-20); Calcium 8.8 mg/dl (8.4-10.2); Carbon Dioxide 26 mmol/L (22-30); Chloride 102 mmol/L (98-107); Estimated Creatinine Clearance 103 ml/min; Glucose 104 mg/dl (70-99); Potassium 4.3 mmol/L (3.5-5.1); Sodium 136 mmol/L (135-145); Total Bilirubin < 0.1 mg/dl (0.2-1.3); Total Protein 6.1 g/dl (6.3-8.2); eGFR > 60.00
--- NOTE | 2024-10-18 15:03 | ED.GENMED ---
History of Present Illness
General
Chief Complaint: Rectal Bleeding
Source: patient and spouse
Exam Limitations: none
Time Seen by Provider: 10/18/24 13:15
Nursing documentation reviewed up to this point in time: agreed with
History of Present Illness
History of Present Illness:
39-year-old male past with history of ulcerative colitis, seizure history presenting to the emergency department today with concerns of rectal bleeding multiple episodes described as a moderate amount this morning with additional black stool. No
abdominal pain has had previous episodes of rectal bleeding in the past was admitted here few weeks ago requiring colonoscopy and endoscopy was found to have angiodysplasia. Bleeding did resolve on its own during last visit. Hemoglobin seem to be
stabilized at that time. Denies any chest pain shortness of breath at this point.
Past History
Past History
ED Past Medical History: Other (Ulcerative colitis)
ED Past Surgical History: Other (hernia)
Social History
Tobacco: Non-smoker
Alcohol: None
Personal: Single
Living: alone
Employment: Employed
Review of Systems
Review of Systems
Allergies reviewed?: Yes
All Other Systems: ROS reviewed and negative except as documented in HPI and ROS
Phy Exam
Physical Exam
Physical Exam:
GENERAL: Alert , in no apparent distress
EYE: pupils equal and reactive
NECK: Supple, no significant adenopathy.
ENT: o/p clr, mmm.
CARDIAC: Regular rate and rhythm .
LUNGS: Clear breath sounds bilaterally, no acute respiratory distress, no wheezes/rales/rhonchi
ABDOMEN: Soft, without focal tenderness, no r/g, no cvat
NEUROLOGICAL: Alert and oriented, no focal neuro deficits
SKIN: Warm and dry, skin intact.
MUSCULOSKELETAL: No edema, well perfused.
PSYCH: Normal and appropriate interaction.
Course
Orders/Labs/Results
Orders:
Orders
10/18/24 13:36
Type+Screen Urgent
Complete Blood Count/With Diff Urgent
Comprehensive Metabolic Panel Urgent
0.9% Sodium Chloride 1000 ml [Nss] 1,000 ml IV BOLUS
Abnormal Lab Results
10/18/24
13:36
RBC 2.91 L 10^6/uL
(4.70-6.10)
Hgb 8.3 L g/dL
(13.0-18.0)
Hct 25.4 L %
(39.0-52.0)
MCHC 32.7 L g/dL
(33.0-37.0)
Plt Count 414 H 10^3/uL
(130-400)
Abs Immat Gran (auto) 0.1 H 10^3/uL
(0-0.05)
Absolute Neuts (auto) 7.3 H 10^3/uL
(1.4-6.5)
Absolute Monos (auto) 0.7 H 10^3/uL
(0.1-0.6)
Immature Gran % 0.7 H %
(0-0.5)
Lymphocytes % 19.5 L %
(20.5-51.1)
Glucose 104 H mg/dl
(70-99)
Total Bilirubin < 0.1 L mg/dl
(0.2-1.3)
Total Protein 6.1 L g/dl
(6.3-8.2)
10/18/24 13:36
10/18/24 13:36
Vital Signs
Initial and Last Documented VS:
Initial Vital Signs
Temp Pulse Resp BP Pulse Ox
98.7 F 121 18 124/87 98
10/18/24 12:23 10/18/24 12:23 10/18/24 12:23 10/18/24 12:23 10/18/24 12:23
Last Documented Vital Signs
Temp Pulse Resp BP Pulse Ox
98.7 F 121 18 135/85 100
10/18/24 12:23 10/18/24 12:23 10/18/24 12:23 10/18/24 14:00 10/18/24 14:00
MDM/Problems Addressed
MDM/Problems Addressed:
39-year-old male presenting to the emergency department today with concerns of rectal bleeding multiple episodes today but blood on examination here also some black stool that is guaiac positive. Initially tachycardic but improving after receiving
fluids. Labs showing hemoglobin of 8.3 which is where he was at discharge few weeks ago. Otherwise BUN is not elevated. He was consented and had a type plan to be admitted for further monitoring and GI assessment.
*Critical Care Note
Total Time (30-74mins, 75-104mins- exclusive of procedures): Not Applicable
ED Attending Note
-
Portions of this chart may have been created with voice recognition software.� Occasional wrong word or��sound alike� substitutions may have occurred due to the inherent limitations of voice recognition software.
Discharge Plan
Departure
Patient Disposition: Admit
Date of Disposition: 10/18/24
Time of Disposition: 15:05
Admit to: Med/Surg
Admit to doctor: Melvina
Presentation/result/management discussed w/ accepting MD/DO: Hospitalist
Patient with high blood pressure during this ER visit?: No
Condition: Good
Covid-19: Not Applicable
Discharge Problem:
GI bleed
Prescriptions:
No Action
escitalopram oxalate 10 MG tablet
10 mg PO DAILY@1200
cholecalciferol (vitamin D3) 2,000 UNITS tablet
2,000 units PO DAILY@1200
cetirizine 10 MG tablet
10 mg PO DAILY@1200
dextroamphetamine-amphetamine 10 MG tablet
10 mg PO BID
multivitamin with folic acid [Tab-A-Mali] 1 TABLET tablet
1 tab PO DAILY@1200
fluticasone propionate 50 mcg/actuation [place],Suspension
1 spray INTRANASAL DAILYPRN PRN (Reason: conjestion)
thiamine HCl (vitamin B1) 100 mg Tablet
100 mg PO BID Qty: 60 0RF
Visbiome 112.5 billion cell Capsule
1 cap PO DAILY
melatonin 5 mg Tablet
5 mg PO HS PRN (Reason: sleep)
pantoprazole 40 mg tablet,delayed release (DR/EC)
40 mg PO DAILY
folic acid 1 mg tablet
1 mg PO DAILY
Rinvoq 45 mg tablet extended release 24 hr
45 mg PO DAILY@1200
acetaminophen [Tylenol] 325 mg Tablet
650 mg PO Q6HPRN PRN (Reason: MILD PAIN)
Referrals:
Modesto Lopez MD [Family Provider] -
Interventions
Interventions:
*Risk Screen - Suicide Last Done: 10/18/24 12:23
*General Assessment Last Done: 10/18/24 12:23
*Neglect/Abuse Screening Last Done: 10/18/24 12:23
ED- Fall Risk Assessment Last Done: 10/18/24 12:47
*ED COVID-19 Vaccine History Last Done: 10/18/24 12:23
XP-Prpeov-Pzwxqkhmxc Assessment Last Done: 10/18/24 12:47
ED- Cardiac Assessment Last Done: 10/18/24 12:47
ED- Pulmonary Assessment Last Done: 10/18/24 12:47
Discharge Date and Time
Print Language: [place]
--- NOTE | 2024-10-18 15:09 | CON.GI ---
Consultation
-
Date/Time Consultation Requested: 10/18/2024, 2:30pm
Date/Time Consultation Performed: 10/18/2024, 3:30pm
Requesting Provider: Dr. Nix
Performing Provider: Dr. Frias
Reason for Consultation: BRBPR
Medical History
Chief Complaint / HPI
Chief Complaint: rectal bleeding
History of Present Illness:
39 yo M patient of Dr. Frederick's who follows her with history of albrecht ulcerative colitis diagnosed in 2015 initially on mesalamine who was recommended biologic therapy after colonoscopy in January 2024 but then was lost to follow-up until he was
hospitalized again in August 2024 with severe ulcerative colitis flare. Dr. Frederick did a sigmoidoscopy at that time August 22 and found severe ulcerative colitis in the descending and transverse colon Martinez 3 with mild ulcerative colitis in the
sigmoid and rectum. I personally reviewed these images and he had deep ulcers at that time. Also EGD done at that time was overall normal with some mild esophageal changes and 2 cm hiatal hernia. He did not respond to IV steroids so was given
Remicade and failed that as well during the same hospitalization and ultimately ended up on Rinvoq August 25. During a hospitalization, he had a CT enterography which was normal. At his follow-up with Dr. Frederick September 09 he was having formed
nonbloody bowel movement once a day with no abdominal pain and was also on steroids at that time. He called September 24 stating he had a change in bowel movements that were stickier and darker with blood in the water and incomplete evacuation.
Patient was then readmitted September 25 with rectal bleeding/melena and syncope at that time he saw colorectal surgery Dr. Howe. He mention patient had had a incision and drainage of a perianal abscess in 2020 which is more indicative of Crohn's
disease and of note there was deep ulcers also can be a sign of Crohn's as well. Stools were more dark so during that admission Dr. Elmore did an upper endoscopy which again was overall unremarkable with small hiatal hernia. She mention she went
to the jejunum but looks like a upper endoscope GIF was used (tattooed to distal extent). Flexible sigmoidoscopy was done at that time and the prep was poor with blood seen in the rectum, rectosigmoid, sigmoid and descending colon. The following
day, a colonoscopy was performed which showed fair prep colon with stool 50 cm proximal to the anus, few recently bleeding colonic angioectasias treated with argon plasma coagulation. There were few scattered excavated appearing lesions without a
clear ulcer base or high risk Cara did not clearly represent an ulcer or diverticulum. No signs of recent bleeding. I personally reviewed these images as well. The colon did not look significantly inflamed at that time. The punched-out ulcers
seen on Dr. Frederick and actual flexible sigmoidoscopy were not seen. He was discharged September 27.He saw Dr. Frederick in the office October 01 complaining of some mild dizziness with again 1 formed bowel movement daily. At that time he was on 10 mg of
prednisone. When she was given instructions to taper off.
He now comes in with rectal bleeding again mixed with black stool. His hemoglobin is similar to his discharge hemoglobin at 8.3. No abdominal pain. Bowels were totally normal before today (no diarrhea). No n/v/weight loss.
Past Medical History
Past Medical History: GERD, HTN, Psychiatric (ADHD, panci attacks) and Other (UC, perianal abscess 2020)
Past Surgical History: Other (inguinal hernia repair)
Social History
Tobacco: Other (e cigarette use)
Alcohol: Daily
Drug: None
Family History
Family History: Other (uncle with UC)
Allergies / Home Medications
Allergy/AdvReac Type Severity Reaction Status Date / Time
cefaclor [Cefaclor] Allergy Unknown Verified 10/18/24 12:25
phenobarbital Allergy Unknown Verified 10/18/24 12:25
phenytoin Allergy Unknown Verified 10/18/24 12:25
�Medication �Instructions �Recorded
cetirizine 10 mg tablet 10 mg PO DAILY@1200 Allergies 03/10/21
cholecalciferol (vitamin D3) 50 2,000 units PO DAILY@1200 03/10/21
mcg (2,000 unit) tablet Supplement
dextroamphetamine-amphetamine 10 10 mg PO BID Attention deficit 03/10/21
mg tablet disorde
escitalopram oxalate 10 mg tablet 10 mg PO DAILY@1200 Depression 03/10/21
multivitamin with folic acid 400 1 tab PO DAILY@1200 Supplement 03/10/21
mcg tablet (Tab-A-Mali)
fluticasone propionate 50 1 spray intranasal DAILYPRN PRN 08/17/24
mcg/actuation nasal conjestion
spray,suspension
thiamine HCl (vitamin B1) 100 mg 100 mg PO BID #60 tabs 08/20/24
tablet
Lactobac no.2-Bifidobac no.1-S. 1 cap PO DAILY probiotic 09/25/24
thermo 112.5 billion cell capsule
(Visbiome)
folic acid 1 mg tablet 1 mg PO DAILY Supplement 09/25/24
melatonin 5 mg tablet 5 mg PO HS PRN sleep 09/25/24
pantoprazole 40 mg tablet,delayed 40 mg PO DAILY Gastrointestinal 09/25/24
release Issue
upadacitinib 45 mg tablet,extended 45 mg PO DAILY@1200 ulerative 09/25/24
release 24 hr (Rinvoq) colitis
acetaminophen 325 mg tablet 650 mg PO Q6HPRN PRN MILD PAIN 10/18/24
(Tylenol)
Review of Systems
-
All other systems: A 12 pt ROS was Negative except as stated above in HPI
Vital Signs
Temp Pulse Resp BP Pulse Ox
98.7 F 121 18 135/85 100
10/18/24 12:23 10/18/24 12:23 10/18/24 12:23 10/18/24 14:00 10/18/24 14:00
Physical Exam
Exam
General: Well Developed
HEENT: Normocephalic
Respiratory: Clear
Cardiac: Regular Rhythm
GI: Non Tender and Non Distended
Musculoskeletal: No Clubbing
Skin: Warm
Neuro: AO x 3
Hematologic/Lymphatic: No Lymphadenopathy
Psych: Calm
Results
WBC 10.1 10^3/uL (4.8-10.8) 10/18/24 13:36
Hgb 8.3 g/dL (13.0-18.0) L 10/18/24 13:36
Hct 25.4 % (39.0-52.0) L 10/18/24 13:36
MCV 87.3 fL (80.0-94.0) 10/18/24 13:36
Plt Count 414 10^3/uL (130-400) H 10/18/24 13:36
Absolute Neuts (auto) 7.3 10^3/uL (1.4-6.5) H 10/18/24 13:36
Sodium 136 mmol/L (135-145) 10/18/24 13:36
Potassium 4.3 mmol/L (3.5-5.1) 10/18/24 13:36
Chloride 102 mmol/L (98-107) 10/18/24 13:36
Carbon Dioxide 26 mmol/L (22-30) 10/18/24 13:36
BUN 19 mg/dl (9-20) 10/18/24 13:36
Creatinine 0.9 mg/dL (0.7-1.3) 10/18/24 13:36
Calcium 8.8 mg/dl (8.4-10.2) 10/18/24 13:36
Total Bilirubin < 0.1 mg/dl (0.2-1.3) L 10/18/24 13:36
AST 30 U/L (17-59) 10/18/24 13:36
ALT 27 U/L (0-50) 10/18/24 13:36
Alkaline Phosphatase 74 U/L (38-126) 10/18/24 13:36
Diagnostic Image Results:
Prior GI Procedures:
EGD:
Colonoscopy:
Assessment / Plan
-
39-year-old male past medical history of ulcerative colitis versus Crohn's disease on Rinvoq 45 since August, completed recent prednisone taper, recent admission with GI bleeding unclear etiology presenting with again melena mixed with BRBPR.
Hemoglobin stable from last admission. BUN 19.
His symptoms to me did not seem typical for an IBD flare. I wonder if he has a more proximal colonic bleed as the prep was poor on the right side during Dr. Elmore's colonoscopy versus a small bowel bleed.
Recommendations:
- Clear liquid diet
- 2 day bowel prep cscope Sunday
- check stool studies, calpro
- check CRP in AM
- monitor Hb
- hold steroids for now
- continue Rinvoq 45 mg daily
- if colonoscopy negative Sunday recommend outpatient VCE
Has follow up with Dr. Frederick 10/22 at 2pm (recommend touching base with Dr. Frederick if this is needed on Sun) - I did put in DC summary.
Data Reviewed
-
Old Records: Reviewed
-
-
Thank you for consultation and allowing me to participate in the patient's care. Please call the aviation maintenance technician GI physician during the after hours with any questions or concerns.
--- NOTE | 2024-10-18 15:33 | HPS.HSE ---
Family Physician
-
Family Physician: Modesto Lopez
Chief Complaint
-
Bright Red Blood per Rectum
History of Present Illness
39-year-old man with a past history of ulcerative colitis, hernia and a seizure history who comes in because of rectal bleeding. He had multiple episodes which he described as a moderate amount this morning with additional black stool. He reports
No abdominal pain has had previous episodes of rectal bleeding in the past. He was admitted here few weeks ago requiring colonoscopy and endoscopy was found to have angiodysplasia. His Bleeding resolved on its own during last visit. He denies any
chest pain shortness of breath at this point. In the ED he has tachycardia, but is otherwise doing OK. He said that this time he came in earlier to avoid passing out.
Medical History
Past Medical History
Past Medical History: Reports Other
Additional Past Medical History:
Ulcerative colitis
hernia
Globus sensation
Angiodysplasia of colon
Attention-deficit hyperactivity disorder, predominantly inattentive type
Anxiety disorder, unspecified
Panic disorder [episodic paroxysmal anxiety] without agoraphobia
Seasonal allergic rhinitis, unspecified trigger
Essential (primary) hypertension
Flexural eczema
Gastroesophageal reflux disease with esophagitis
Ulcerative pancolitis without complication
Smoker
Vitamin D deficiency
Eczema intertrigo
Past Surgical History: Reports Other
Additional Past Surgical History:
See above
Social History
Tobacco: Smoker
Alcohol: Occasional
Employment: Employed
Family History
Family History: Not pertinent
Allergies / Home Medications
Allergies reflects when Allergies were last updated in [employer].
Home Medications with original date entered in [employer]
Allergy/Medication List:
Allergies
Allergy/AdvReac Type Severity Reaction Status Date / Time
cefaclor [Cefaclor] Allergy Unknown Verified 10/18/24 12:25
phenobarbital Allergy Unknown Verified 10/18/24 12:25
phenytoin Allergy Unknown Verified 10/18/24 12:25
Home Medications
cetirizine 10 mg tablet 10 mg PO DAILY@1200 Allergies 03/10/21
cholecalciferol (vitamin D3) 50 mcg (2,000 unit) tablet 2,000 units PO DAILY@1200 Supplement 03/10/21
dextroamphetamine-amphetamine 10 mg tablet 10 mg PO BID Attention deficit disorde 03/10/21
escitalopram oxalate 10 mg tablet 10 mg PO DAILY@1200 Depression 03/10/21
multivitamin with folic acid 400 mcg tablet (Tab-A-Mali) 1 tab PO DAILY@1200 Supplement 03/10/21
fluticasone propionate 50 mcg/actuation nasal spray,suspension 1 spray intranasal DAILYPRN PRN conjestion 08/17/24
thiamine HCl (vitamin B1) 100 mg tablet 100 mg PO BID #60 tabs 08/20/24
Lactobac no.2-Bifidobac no.1-S. thermo 112.5 billion cell capsule (Visbiome) 1 cap PO DAILY probiotic 09/25/24
folic acid 1 mg tablet 1 mg PO DAILY Supplement 09/25/24
melatonin 5 mg tablet 5 mg PO HS PRN sleep 09/25/24
pantoprazole 40 mg tablet,delayed release 40 mg PO DAILY Gastrointestinal Issue 09/25/24
upadacitinib 45 mg tablet,extended release 24 hr (Rinvoq) 45 mg PO DAILY@1200 ulerative colitis 09/25/24
acetaminophen 325 mg tablet (Tylenol) 650 mg PO Q6HPRN PRN MILD PAIN 10/18/24
Review of Systems
-
History Source: Patient
A 12 point ROS was completed and negative except as noted: Yes
Physical Exam
Vital Signs
Vital Signs
Temp Pulse Resp BP Pulse Ox
98.7 F 121 18 141/91 99
10/18/24 12:23 10/18/24 12:23 10/18/24 12:23 10/18/24 15:00 10/18/24 15:15
Physical Exam
General: Well Developed, Well Nourished, No Apparent Distress and Appears Chronically Ill
HEENT: NormoCephalic, Nose Appears Normal and Ears Appear Normal
Respiratory: Clear
Cardiac: S1/S2 and Tachycardia
GI: Soft, Non Tender and Non Distended
Musculoskeletal: No Clubbing, No Cyanosis and No Edema
Skin: Warm; No Dry, Rash or Jaundice
Neuro: Awake, Alert, Oriented and AO x 3
Psych: Calm
Laboratory Results
-
10/18/24 13:36
10/18/24 13:36
Laboratory Results
Total Bilirubin < 0.1 mg/dl (0.2-1.3) L 10/18/24 13:36
AST 30 U/L (17-59) 10/18/24 13:36
ALT 27 U/L (0-50) 10/18/24 13:36
Alkaline Phosphatase 74 U/L (38-126) 10/18/24 13:36
Data Reviewed
-
Lab Data: Labs Reviewed by me
Impression/Plan
-
IMPRESSION:
39 man with h/o ulcerative colitis, comes in with BRBPR. recent admit to 3 weeks ago. At that time, the discharge summary was:
'39-year-old male with past medical history of ulcerative colitis, ADHD, anxiety, alcohol use disorder came to the hospital after syncopal episode which was likely thought was secondary to vasovagal and acute blood loss anemia from gastrointestinal
bleed. Patient was seen by gastroenterology throughout hospitalization. It did not appear ulcerative colitis flareup. Gastroenterology performed EGD and flexible sigmoidoscopy on 09/26/2024 with this showed some rectal bleeding. Patient then
later got a colonoscopy on 09/27 which showed angiodysplasia of colon with hemorrhage where bleeding was stopped and there was no further bleeding per GI after colonoscopy. Patient was able to tolerate low residue diet prior to discharge. He was
instructed to get a repeat hemoglobin with his primary care provider on discharge. Since his symptoms continue to improve and he was able to tolerate diet, he was then discharged home with instructions to follow-up with all the physicians
outpatient.'
PLAN:
1. BRBPR, likely UC flare up with tachycardia. GI made aware by ED.
Plan per GI:
Clear liquid diet
GI re-eval in am
typed and crossed
Saline
Monitor on telemetry overnight
2. Nicotine use
Patch while in hospital
3. Acute on chronic blood loss anemia, H/H now 8.3/25.4
Consider transfusion if hemoglobin < 7.0, or new symptoms
H/H Q6
Full code
VCD for DVTp
--- NOTE | 2024-10-18 16:45 | PTCARENOTE ---
Patient admitted to 3[facility] from ED. Patient is AAOx3, without pain, able to walk from stretcher to bed without any complaints. Call carbone within reach.
[2024-10-18] MEDS: NICODERM TRANSDERMAL 14 MG TRANSDERM (17:21)
[2024-10-18] MEDS: CITROMA 300 ML PO (17:57)
[2024-10-18] MEDS: VITAMIN B1 100 MG PO (21:39)
[2024-10-18 22:47] LABS: Hematocrit 22.6 % (39.0-52.0); Hemoglobin 7.1 g/dL (13.0-18.0)
[2024-10-19] VITALS (7 sets, daily range): BP systolic 103–142; BP diastolic 72–92; PULSE 84–100
[2024-10-19] MEDS: TYLENOL 650 MG PO ×2 (04:18→12:07)
[2024-10-19 06:19] LABS: ALT (SGPT) 23 U/L (0-50); AST (SGOT) 26 U/L (17-59); Albumin 3.1 g/dl (3.5-5.0); Alkaline Phosphatase 47 U/L (38-126); Blood Urea Nitrogen 12 mg/dl (9-20); C-Reactive Protein < 5.00 mg/L (0.0-10.00); Calcium 7.9 mg/dl (8.4-10.2); Carbon Dioxide 26 mmol/L (22-30); Chloride 111 mmol/L (98-107); Estimated Creatinine Clearance > 125 ml/min; Ferritin 14.1 ng/ml (17.9-464.0); Glucose 90 mg/dl (70-99); Iron 33 ug/dl (49-181); Percent Saturation 8 % (20-50); Potassium 4.2 mmol/L (3.5-5.1); Sodium 140 mmol/L (135-145); Total Bilirubin 0.2 mg/dl (0.2-1.3); Total Iron Binding Capacity 380 ug/dl (261-462); Total Protein 4.8 g/dl (6.3-8.2); eGFR > 60.00
[2024-10-19 06:30] LABS: Folate > 20.0 ng/ml (2.76-20); Vitamin B12 585 pg/ml (239-931)
--- NOTE | 2024-10-19 06:41 | PTCARENOTE ---
Patient with bloody BM x3 this shift. Specimen to lab. Hgb down to 6.6. Tranfusion of 1 unit pRBCs started
[2024-10-19 06:54] LABS: Hematocrit 19.9 % (39.0-52.0); Hemoglobin 6.6 g/dL (13.0-18.0); Mean Corp Hgb Conc. 33.2 g/dL (33.0-37.0); Mean Corpuscular Hgb 28.8 pg (27.0-31.0); Mean Corpuscular Volume 86.9 fL (80.0-94.0); Mean Platelet Volume 9.8 fL (7.4-10.4); Platelet Count 342 10^3/uL (130-400); Red Blood Cell Count 2.29 10^6/uL (4.70-6.10); Red Cell Dist. Width 14.2 % (11.5-14.5); White Blood Cell Count 6.6 10^3/uL (4.8-10.8)
--- NOTE | 2024-10-19 07:30 | W.PN.UPDATE ---
Update Note
Progress Note Update
hgb 6.8, bloody stool noted per RN. patient asymptomatic, stable VS. type and screen done, blood consent noted in chart. will order 1 unit of PRBC. GI on board
[2024-10-19 07:36] LABS: Erythrocyte Sed Rate 12 mm/hour (0-20)
--- NOTE | 2024-10-19 07:44 | W.PN.HOSP.TC ---
Today's Communication/Plan
-
Clear liquid diet for today
NPO after midnight for C-scope as per GI
monitor H&H, transfuse if Hgb<7
Assessment / Plan
Assessment / Plan
Physical Exam
General: No Acute Distress, Appears unwell though seems comfortable at this time
HEENT: NormoCephalic, Nose Appears Normal and Ears Appear Normal
Respiratory: Clear
Cardiac: S1/S2 NSR
GI: Soft, Non Tender and Non Distended
Musculoskeletal: No Clubbing, No Cyanosis and No Edema
Skin: Warm; No Dry, Rash or Jaundice
Neuro: AOx3
Psych: Calm
39 man with h/o ulcerative colitis, comes in with BRBPR. recent admit to 3 weeks ago. At that time, the discharge summary was:
'39-year-old male with past medical history of ulcerative colitis, ADHD, anxiety, alcohol use disorder came to the hospital after syncopal episode which was likely thought was secondary to vasovagal and acute blood loss anemia from gastrointestinal
bleed. Patient was seen by gastroenterology throughout hospitalization. It did not appear ulcerative colitis flareup. Gastroenterology performed EGD and flexible sigmoidoscopy on 09/26/2024 with this showed some rectal bleeding. Patient then
later got a colonoscopy on 09/27 which showed angiodysplasia of colon with hemorrhage where bleeding was stopped and there was no further bleeding per GI after colonoscopy. Patient was able to tolerate low residue diet prior to discharge. He was
instructed to get a repeat hemoglobin with his primary care provider on discharge. Since his symptoms continue to improve and he was able to tolerate diet, he was then discharged home with instructions to follow-up with all the physicians
outpatient.'
PLAN:
# BRBPR
#Hx Ulcerative Colitis
# Acute Blood Loss Anemia
Doesn't appear consistent with UC colitis flare, low CRP Ferritin inflammatory markers, no abd pain
Clear liquid diet for today NPO after midnight for c-scope as per GI
GI eval appreciated
received 1PRBC for Hgb 6.6 with appropriate response noted 7.9
Monitor H&H transfuse if Hgb<7
#Nicotine use
Patch while in hospital
Full code
VCD for DVTp
I spent a total of 50 minutes with the patient or on the floor. More than 50% of this time involved counseling and coordination of care.
Anticipated Discharge: 24 - 48 hours
Subjective/Interval History
-
Date of Service: October 19, 2024
No acute distress resting comfortably in bed. Denies abd pain tenderness. Bloody bowel movements noted over night. Denies nausea vomiting. Tolerating clear liquid diet.
Objective Data
-
Labs:
Laboratory Results
10/18/24 10/18/24 10/19/24
16:41 22:33 04:10
WBC 6.6
Hgb Cancelled 7.1 L 6.6 L*
Hct Cancelled 22.6 L 19.9 L*
Plt Count 342
Sodium 140
Potassium 4.2
Chloride 111 H
Carbon Dioxide 26
BUN 12
Creatinine 0.7
Glucose 90
Calcium 7.9 L
Total Bilirubin 0.2
AST 26
ALT 23
Alkaline Phosphatase 47
Vital Signs:
Vital Signs
Temp Pulse Resp BP Pulse Ox
97.8 F 93 18 103/75 97
10/19/24 03:55 10/19/24 03:55 10/19/24 03:55 10/19/24 03:55 10/19/24 03:55
I&O
10/18/24 10/19/24 10/20/24
06:59 06:59 06:59
Intake Total 960 / 960
Balance 960 / 960
[2024-10-19] MEDS: NSS IV (07:47)
[2024-10-19] MEDS: PROTONIX 40 MG PO ×2 (07:54→19:52)
[2024-10-19] MEDS: VITAMIN B1 100 MG PO ×2 (07:54→19:52)
[2024-10-19] MEDS: NICODERM TRANSDERMAL 14 MG TRANSDERM (07:54)
[2024-10-19] MEDS: VISBIOME 1 CAP PO (07:54)
[2024-10-19] MEDS: FOLVITE 1 MG PO (07:54)
--- NOTE | 2024-10-19 10:55 | CM ---
CM following re: discharge planning.
Reviewed pt's chart, met with pt.
Pt is a 39 year old male, admitted with primary dx of BRBPR, likely UC flare up with tachycardia.
Pt reports he lives with spouse 2SH, 3 steps to enter, has no children. Pt described himself as independent in all areas [employer], drives, works
PCP: [facility] Lopez
Pharmacy: [facility]
D/C plan: home with anticipated no needs.
CM will follow with discharge plan updates as hospitalization progresses
[2024-10-19] MEDS: THERAGRAN 1 TABLET PO (12:06)
[2024-10-19] MEDS: LEXAPRO 10 MG PO (12:06)
[2024-10-19] MEDS: VITAMIN D3 (cholecalciferol) 50 MCG PO (12:06)
[2024-10-19] MEDS: ZYRTEC 10 MG PO (12:06)
[2024-10-19] MEDS: NSS 1000 IV ×2 (12:08→19:28)
[2024-10-19] MEDS: NON-FORMULARY ITEM 45 MG PO (12:08)
--- NOTE | 2024-10-19 12:39 | W.PN.GI.CBS2 ---
Today's Communication / Plan
-
cscope tomorrow
Assessment / Plan
-
39-year-old male past medical history of ulcerative colitis versus Crohn's disease on Rinvoq 45 since August, completed recent prednisone taper, recent admission with GI bleeding unclear etiology presenting with again melena mixed with BRBPR.
Hemoglobin stable from last admission. BUN 19.
His symptoms to me did not seem typical for an IBD flare. I wonder if he has a more proximal colonic bleed as the prep was poor on the right side during Dr. Elmore's colonoscopy versus a small bowel bleed.
Recommendations:
- Clear liquid diet
- 2 day bowel prep cscope Sunday
- check stool studies, calpro - CDI neg stool culture pending
- CRP today <5
- monitor Hb
- hold steroids for now
- continue Rinvoq 45 mg daily
- if colonoscopy negative Sunday recommend outpatient VCE
Has follow up with Dr. Frederick 10/22 at 2pm (recommend touching base with Dr. Frederick if this is needed on Sun) - I did put in DC summary.
D/w Dr. Gonsalves hospitalist
Subjective
Subjective
Date of Service: October 19, 2024
ongoing bleeding
Objective
Data Reviewed
Laboratory Data:
Laboratory Results
10/19/24 04:10
Laboratory Results
Total Bilirubin 0.2 mg/dl (0.2-1.3) 10/19/24 04:10
AST 26 U/L (17-59) 10/19/24 04:10
ALT 23 U/L (0-50) 10/19/24 04:10
Alkaline Phosphatase 47 U/L (38-126) 10/19/24 04:10
Vital Signs and I&O:
Vital Signs
Temp Pulse Resp BP Pulse Ox
97.9 F 85 17 109/77 98
10/19/24 11:00 10/19/24 11:00 10/19/24 11:00 10/19/24 11:00 10/19/24 11:00
I&O
10/18/24 10/19/24 10/20/24
06:59 06:59 06:59
Intake Total 960 / 960
Balance 960 / 960
Physical Exam
Physical Exam
HEENT: Anicteric
Cardiology: Normal Sinus Rhythm
Pulmonary: Clear
GI: Non Distended and Non Tender
[2024-10-19 13:59] LABS: Hematocrit 24.4 % (39.0-52.0); Hemoglobin 7.9 g/dL (13.0-18.0)
[2024-10-19] MEDS: NULYTELY SOLUTION 2 LITERS PO (16:27)
[2024-10-19 17:54] LABS: Hematocrit 24.2 % (39.0-52.0); Hemoglobin 7.9 g/dL (13.0-18.0)
[2024-10-19] MEDS: FLUSH (NSS) 1 FLUSH IV (19:53)
[2024-10-20] VITALS (10 sets, daily range): BP systolic 18–125; BP diastolic 70–89
[2024-10-20] MEDS: NULYTELY SOLUTION 2 LITERS PO (04:59)
[2024-10-20] MEDS: NSS 1000 IV ×2 (05:07→16:05)
[2024-10-20] MEDS: TYLENOL 650 MG PO ×2 (05:28→17:56)
[2024-10-20] MEDS: FOLVITE 1 MG PO (07:36)
[2024-10-20] MEDS: VISBIOME 1 CAP PO (07:36)
[2024-10-20] MEDS: FEOSOL 325 MG PO (07:36)
[2024-10-20] MEDS: VITAMIN B1 100 MG PO ×2 (07:36→20:34)
[2024-10-20] MEDS: NICODERM TRANSDERMAL 14 MG TRANSDERM (07:36)
[2024-10-20] MEDS: PROTONIX 40 MG PO ×2 (07:36→20:34)
[2024-10-20 09:21] LABS: % Basophils 0.2 % (0-2); % Eosinophils 2.4 % (0-6); % Immature Granulocytes 0.4 % (0-0.5); % Monocytes 13.4 % (1.7-9.3); % Neutrophils 43.6 % (42.2-75.2); Absolute Eosinophils 0.1 10^3/uL (0-0.7); Absolute Monocytes 0.7 10^3/uL (0.1-0.6); Absolute Neutrophils 2.2 10^3/uL (1.4-6.5); Hemoglobin 7.4 g/dL (13.0-18.0); Mean Corp Hgb Conc. 32.2 g/dL (33.0-37.0); Mean Corpuscular Hgb 27.8 pg (27.0-31.0); Mean Corpuscular Volume 86.5 fL (80.0-94.0); Mean Platelet Volume 9.8 fL (7.4-10.4); Nucleated Red Blood Cells % 0 % (-); Platelet Count 323 10^3/uL (130-400); Red Blood Cell Count 2.66 10^6/uL (4.70-6.10); Red Cell Dist. Width 14.6 % (11.5-14.5); White Blood Cell Count 5.1 10^3/uL (4.8-10.8)
[2024-10-20 09:49] LABS: Blood Urea Nitrogen 5 mg/dl (9-20); Carbon Dioxide 25 mmol/L (22-30); Chloride 110 mmol/L (98-107); Estimated Creatinine Clearance 116 ml/min; Glucose 90 mg/dl (70-99); Phosphorus 2.9 mg/dl (2.5-4.5); Potassium 4.1 mmol/L (3.5-5.1); Sodium 141 mmol/L (135-145); eGFR > 60.00
[2024-10-20] MEDS: NSS IV (10:56)
[2024-10-20] MEDS: THERAGRAN 1 TABLET PO (12:58)
[2024-10-20] MEDS: LEXAPRO 10 MG PO (12:58)
[2024-10-20] MEDS: VITAMIN D3 (cholecalciferol) 50 MCG PO (12:58)
[2024-10-20] MEDS: NON-FORMULARY ITEM 45 MG PO (12:59)
[2024-10-20] MEDS: ZYRTEC 10 MG PO (13:03)
[2024-10-20] MEDS: FERRLECIT 110 MG IV (14:30)
--- NOTE | 2024-10-20 16:42 | W.PN.HOSP.TC ---
Today's Communication/Plan
-
Status post colonoscopy
Advance to low residue diet.
IV iron
Monitor hemoglobin
Assessment / Plan
Assessment / Plan
39 man with h/o ulcerative colitis, comes in with BRBPR. recent admit to 3 weeks ago. At that time, the discharge summary was:
'39-year-old male with past medical history of ulcerative colitis, ADHD, anxiety, alcohol use disorder came to the hospital after syncopal episode which was likely thought was secondary to vasovagal and acute blood loss anemia from gastrointestinal
bleed. Patient was seen by gastroenterology throughout hospitalization. It did not appear ulcerative colitis flareup. Gastroenterology performed EGD and flexible sigmoidoscopy on 09/26/2024 with this showed some rectal bleeding. Patient then
later got a colonoscopy on 09/27 which showed angiodysplasia of colon with hemorrhage where bleeding was stopped and there was no further bleeding per GI after colonoscopy. Patient was able to tolerate low residue diet prior to discharge. He was
instructed to get a repeat hemoglobin with his primary care provider on discharge. Since his symptoms continue to improve and he was able to tolerate diet, he was then discharged home with instructions to follow-up with all the physicians
outpatient.'
PLAN:
# BRBPR
#Hx Ulcerative Colitis
Recently completed steroid taper.
On Rinvoq [employer].
Colonoscopy today with improved inflammatory changes.
Diet advanced to low residue. Monitor.
Acute blood loss anemia secondary to hematochezia, ulcerative colitis flareup.
Iron deficiency.
Appropriate response to transfusion with hemoglobin improvement at 7.4 per
Start IV iron.
#Nicotine use
Patch while in hospital
Full code
VCD for DVTp
I spent a total of 50 minutes with the patient or on the floor. More than 50% of this time involved counseling and coordination of care.
Anticipated Discharge: 24 - 48 hours
Subjective/Interval History
-
Date of Service: October 20, 2024
Objective Data
-
Labs:
Laboratory Results
10/20/24
08:38
WBC 5.1
Hgb 7.4 L
Hct 23.0 L
Plt Count 323
Sodium 141
Potassium 4.1
Chloride 110 H
Carbon Dioxide 25
BUN 5 L
Creatinine 0.8
Glucose 90
Calcium 8.0 L
Vital Signs:
Vital Signs
Temp Pulse Resp BP Pulse Ox
98.0 F 109 16 124/76 100
10/20/24 14:52 10/20/24 14:52 10/20/24 14:52 10/20/24 14:52 10/20/24 14:52
I&O
10/19/24 10/20/24 10/21/24
06:59 06:59 06:59
Intake Total 960 / 960 6080 / 6080
Output Total 1300 / 1300
Balance 960 / 960 4780 / 4780
Physical Exam
-
General: Well Developed and No Apparent Distress
HEENT: Normocephalic, Atraumatic and Moist Mucous Membranes
Respiratory: Clear to Auscultation
Cardiac: Regular Rhythm and S1/S2; Negative Murmur, Rub or Gallop
GI: Soft, Nontender, Nondistended and Normal Bowel Sounds; Negative Organomegaly
Rectal: Deferred by Provider
Musculoskeletal: No Clubbing, No Cyanosis and No Edema
Skin: Negative Rash
Neuro: Nonfocal/Grossly Intact
[2024-10-21] VITALS (7 sets, daily range): BP systolic 117–130; BP diastolic 78–89
[2024-10-21 06:44] LABS: Hematocrit 21.8 % (39.0-52.0); Hemoglobin 7.4 g/dL (13.0-18.0); Mean Corp Hgb Conc. 33.9 g/dL (33.0-37.0); Mean Corpuscular Hgb 28.7 pg (27.0-31.0); Mean Corpuscular Volume 84.5 fL (80.0-94.0); Platelet Count 354 10^3/uL (130-400); Red Blood Cell Count 2.58 10^6/uL (4.70-6.10); Red Cell Dist. Width 14.3 % (11.5-14.5); White Blood Cell Count 5.8 10^3/uL (4.8-10.8)
--- NOTE | 2024-10-21 07:16 | W.PN.GI.CBS2 ---
Today's Communication / Plan
-
Please see assessment and plan for details.
Assessment / Plan
-
1. GI bleed : Unclear source, possibly related to site of prior intervention for angiectasia, colonoscopy otherwise essentially unremarkable with areas of regeneration, pseudopolyps, much improved endoscopic appearance overall, with no active
bleeding or source of active bleeding. His hemoglobin remained stable overnight and has had no bowel movements. At this point is okay to DC from GI standpoint, on continued Rinvoq. Will repeat labs and follow-up in the office in a few weeks with
Dr. Frederick, and plan outpatient VCE.
Subjective
Subjective
Date of Service: October 21, 2024
Patient feeling okay, no bowel movements overnight, tolerated diet without difficulty, no fever or chills.
Objective
Data Reviewed
Laboratory Data:
Laboratory Results
10/21/24 06:14
10/20/24 08:38
Laboratory Results
Phosphorus 2.9 mg/dl (2.5-4.5) 10/20/24 08:38
Magnesium 2.0 mg/dl (1.6-2.3) 10/20/24 08:38
Total Bilirubin 0.2 mg/dl (0.2-1.3) 10/19/24 04:10
AST 26 U/L (17-59) 10/19/24 04:10
ALT 23 U/L (0-50) 10/19/24 04:10
Alkaline Phosphatase 47 U/L (38-126) 10/19/24 04:10
Vital Signs and I&O:
Vital Signs
Temp Pulse Resp BP Pulse Ox
98.5 F 78 18 119/81 98
10/21/24 03:40 10/21/24 03:40 10/21/24 03:40 10/21/24 03:40 10/21/24 03:40
I&O
10/20/24 10/21/24 10/22/24
06:59 06:59 06:59
Intake Total 6080 / 6080 1719
Output Total 1300 / 1300
Balance 4780 / 4780 1719
Physical Exam
Physical Exam
General: NAD
Abdomen: normal bowel sounds, soft, no tenderness, no masses or bruits, no ascites
[2024-10-21] MEDS: PROTONIX 40 MG PO (08:33)
[2024-10-21] MEDS: VISBIOME 1 CAP PO (08:33)
[2024-10-21] MEDS: VITAMIN B1 100 MG PO (08:33)
[2024-10-21] MEDS: FEOSOL 325 MG PO (08:33)
[2024-10-21] MEDS: FOLVITE 1 MG PO (08:33)
[2024-10-21] MEDS: NICODERM TRANSDERMAL 14 MG TRANSDERM (08:34)
--- NOTE | 2024-10-21 08:38 | W.PN.UPDATE ---
Update Note
Progress Note Update
reviewed with Dr. covington for possible discharge today if feeling well and tolerating diet. hb g 7.4 will give 1 unit prior to discharge with recheck of hbg. pt scheduled tomorrow with Dr. Frederick if discharged today can try for telehealth with
Dr. Frederick. Pt also scheduled in December follow up.
--- NOTE | 2024-10-21 09:42 | CM ---
Addendum entered by Lizbeth Hogan RN 10/21/24 15:05:
Blood transfusion complete.
Spoke with pt in room .He said he was ready for discharge.His dad Deyvi will drive him home.
He declined need for VN .
PLAN Home no needs
Original Note:
Pt independent prior to admission.
Post colonoscopy and blood transfusion.
Advancing diet to low residual diet.
PLAN Home no anticipated dc needs.
[2024-10-21] MEDS: NON-FORMULARY ITEM 45 MG PO (11:34)
[2024-10-21] MEDS: ZYRTEC 10 MG PO (11:34)
[2024-10-21] MEDS: LEXAPRO 10 MG PO (11:34)
[2024-10-21] MEDS: THERAGRAN 1 TABLET PO (11:34)
[2024-10-21] MEDS: VITAMIN D3 (cholecalciferol) 50 MCG PO (11:34)
[2024-10-21 12:25] LABS: Hematocrit 24.4 % (39.0-52.0)
--- NOTE | 2024-10-21 12:34 | PTCARENOTE ---
assumed care for this patient from [id number] before getting assigned to different unit. Pt monitored, AM medications administered, and hourly rounds. reported off to oncoming RN.
--- NOTE | 2024-10-21 14:27 | W.DS.TRANS ---
DC Summary - Direct Customer Service Representative
-
Discharge Instructions:
Discharge Diagnosis/Procedures Lower gastrointestinal hemorrhage
Acute blood loss anemia
Chronic anemia with iron deficiency
Ulcerative colitis
Diet Low Residue
Blood Work repeat CBC and iron studies in 2 weeks
Instructions:
Stand-Alone Forms:
Changes to Home Medications: No
Discharge Medications:
DC Medications w/original date entered in [facility]
cetirizine 10 mg tablet 10 mg PO DAILY@1200 Allergies 03/10/21
cholecalciferol (vitamin D3) 50 mcg (2,000 unit) tablet 2,000 units PO DAILY@1200 Supplement 03/10/21
dextroamphetamine-amphetamine 10 mg tablet 10 mg PO BID Attention deficit disorde 03/10/21
escitalopram oxalate 10 mg tablet 10 mg PO DAILY@1200 Depression 03/10/21
multivitamin with folic acid 400 mcg tablet (Tab-A-Mali) 1 tab PO DAILY@1200 Supplement 03/10/21
fluticasone propionate 50 mcg/actuation nasal spray,suspension 1 spray intranasal DAILYPRN PRN conjestion 08/17/24
thiamine HCl (vitamin B1) 100 mg tablet 100 mg PO BID #60 tabs 08/20/24
Lactobac no.2-Bifidobac no.1-S. thermo 112.5 billion cell capsule (Visbiome) 1 cap PO DAILY probiotic 09/25/24
folic acid 1 mg tablet 1 mg PO DAILY Supplement 09/25/24
melatonin 5 mg tablet 5 mg PO HS PRN sleep 09/25/24
pantoprazole 40 mg tablet,delayed release 40 mg PO DAILY Gastrointestinal Issue 09/25/24
upadacitinib 45 mg tablet,extended release 24 hr (Rinvoq) 45 mg PO DAILY@1200 ulerative colitis 09/25/24
acetaminophen 325 mg tablet (Tylenol) 650 mg PO Q6HPRN PRN MILD PAIN 10/18/24
Home Medication Changes
Pending Results: No
[2024-10-21] MEDS: FERRLECIT 110 MG IV (14:43)
== END 2024-10-21 16:55 | disposition home or self-care (01) | DRG 386 ==
LOC: 3 WEST ACU 16:14
PROVIDERS: Internal Medicine; Nurse Practitioner Adult Health; Physician Assistant; ADMITTING PHYSICIAN Internal Medicine; ATTENDING PHYSICIAN Internal Medicine; CONSULT PHYSICIAN Internal Medicine Gastroenterology; EMERGENCY PHYSICIAN Student in an Organized Health Care Education/Training Program; FAMILY PHYSICIAN Family Medicine
PROC: 30233N1 Transfusion of Nonautologous Red Blood Cells into Peripheral Vein, Percutaneous Approach (ICD-10-PCS; 2024-10-19)
DX: K51.911 Ulcerative colitis, unspecified with rectal bleeding (principal); D62 Acute posthemorrhagic anemia; D50.9 Iron deficiency anemia, unspecified; F17.290 Nicotine dependence, other tobacco product, uncomplicated; F90.0 Attention-deficit hyperactivity disorder, predominantly inattentive type; R00.0 Tachycardia, unspecified; F41.0 Panic disorder [episodic paroxysmal anxiety]; I10 Essential (primary) hypertension; L20.82 Flexural eczema; K21.00 Gastro-esophageal reflux disease with esophagitis, without bleeding; E55.9 Vitamin D deficiency, unspecified; L30.4 Erythema intertrigo; Z83.79 Family history of other diseases of the digestive system; F32.A Depression, unspecified
CPT/HCPCS: 80048; 80053; 82248; 82607; 82728; 82746; 83540; 83550; 83735; 83993; 84100; 85014; 85018; 85025; 85027; 85652; 86140; 86850; 86900; 86901; 86920; 87045; 87046; 87324; 87427; 87449; 96360; 99284; 99406; J2916; P9016

== ENCOUNTER → 2024-10-23 12:06 | Outpatient (REF) | payer OTHER, SELFPAY ==
[2024-10-23 13:49] LABS: % Basophils 0.5 % (0-2); % Eosinophils 1.5 % (0-6); % Immature Granulocytes 0.5 % (0-0.5); % Lymphocytes 36.7 % (20.5-51.1); % Monocytes 8.6 % (1.7-9.3); % Neutrophils 52.2 % (42.2-75.2); Absolute Eosinophils 0.1 10^3/uL (0-0.7); Absolute Lymphocytes 2.2 10^3/uL (1.2-3.4); Absolute Monocytes 0.5 10^3/uL (0.1-0.6); Absolute Neutrophils 3.1 10^3/uL (1.4-6.5); Hematocrit 32.4 % (39.0-52.0); Hemoglobin 10.9 g/dL (13.0-18.0); Mean Corp Hgb Conc. 33.6 g/dL (33.0-37.0); Mean Corpuscular Volume 86.2 fL (80.0-94.0); Mean Platelet Volume 11.4 fL (7.4-10.4); Nucleated Red Blood Cells % 0 % (-); Platelet Count 333 10^3/uL (130-400); Red Blood Cell Count 3.76 10^6/uL (4.70-6.10); White Blood Cell Count 5.9 10^3/uL (4.8-10.8)
[2024-10-23 14:26] LABS: ALT (SGPT) 33 U/L (0-50); AST (SGOT) 39 U/L (17-59); Albumin 4.3 g/dl (3.5-5.0); Alkaline Phosphatase 49 U/L (38-126); Blood Urea Nitrogen 11 mg/dl (9-20); Calcium 9.3 mg/dl (8.4-10.2); Carbon Dioxide 31 mmol/L (22-30); Chloride 104 mmol/L (98-107); Glucose 89 mg/dl (70-99); HDL Cholesterol 81 mg/dl; Iron 84 ug/dl (49-181); LDL Cholesterol, Calculated 130 mg/dl; Potassium 4.2 mmol/L (3.5-5.1); Sodium 141 mmol/L (135-145); Total Bilirubin 0.2 mg/dl (0.2-1.3); Total Cholesterol 246 mg/dl (50-199); Total Protein 6.5 g/dl (6.3-8.2); Triglyceride 175 mg/dl (10-149); Very Low Density Lipoprotein 35 mg/dl (0-30); eGFR > 60.00
[2024-10-23 14:35] LABS: Percent Saturation 18 % (20-50); Total Iron Binding Capacity 453 ug/dl (261-462)
[2024-10-23 14:43] LABS: Vitamin D, 25-OH*** 30.2 ng/mL (30-80)
== END ==
LOC: REG 12:06
PROVIDERS: ATTENDING PHYSICIAN Internal Medicine; FAMILY PHYSICIAN Family Medicine
DX: D50.0 Iron deficiency anemia secondary to blood loss (chronic) (principal); K51.90 Ulcerative colitis, unspecified, without complications; E55.9 Vitamin D deficiency, unspecified; E78.1 Pure hyperglyceridemia
CPT/HCPCS: 80053; 80061; 82306; 82728; 83540; 83550; 85025

== ENCOUNTER 2024-10-23 13:01 | Outpatient (RCR) | payer OTHER, SELFPAY ==
[2024-10-23] MEDS: INJECTAFER 265 MG IV (13:40)
[2024-10-23 13:46] VITALS: BP 122/89
--- NOTE | 2024-10-23 14:03 | PTCARENOTE ---
Pt here today for IV Injectafer. Pt reports during recent hospitalization receiving IV iron. [facility] Araujo pharmacist contacted Dr. Frederick via tiger text. Will go ahead with today's dose of Injectafer but hold scheduled second dose. Pt to have follow up
with Dr. Frederick and will re-evaluate.
[2024-10-23 14:30] VITALS: BP 127/83
== END 2024-11-18 23:59 | disposition home or self-care (01) ==
LOC: OID 13:01
PROVIDERS: ATTENDING PHYSICIAN Internal Medicine; FAMILY PHYSICIAN Family Medicine
DX: K51.019 Ulcerative (chronic) pancolitis with unspecified complications (principal); K92.1 Melena; D50.8 Other iron deficiency anemias; E55.9 Vitamin D deficiency, unspecified; K61.0 Anal abscess; D84.9 Immunodeficiency, unspecified; K92.2 Gastrointestinal hemorrhage, unspecified
CPT/HCPCS: 96365; J1439

== ENCOUNTER 2025-02-19 06:23 | Day surgery (SDC) | payer OTHER, SELFPAY | END 2025-02-19 13:50 | disposition home or self-care (01) | LOC: GI 06:23 | PROVIDERS: ATTENDING PHYSICIAN Internal Medicine | DX: K51.00 Ulcerative (chronic) pancolitis without complications (principal) | CPT/HCPCS: 45380; 88305 ==

== ENCOUNTER → 2025-04-08 16:08 | Outpatient (REF) | payer OTHER, SELFPAY | LOC: RAD 16:08 | PROVIDERS: ATTENDING PHYSICIAN Family Medicine | DX: M54.59 Other low back pain (principal) | CPT/HCPCS: 72110 ==

== ENCOUNTER → 2025-05-06 16:24 | Outpatient (REF) | payer OTHER, SELFPAY | LOC: RAD 16:24 | PROVIDERS: ATTENDING PHYSICIAN Family Medicine | DX: M25.561 Pain in right knee (principal) | CPT/HCPCS: 73502; 73564 ==

== ENCOUNTER → 2025-07-18 11:38 | Outpatient (REF) | payer OTHER, SELFPAY ==
[2025-07-18 12:22] LABS: Hematocrit 39.9 % (39.0-52.0); Hemoglobin 13.8 g/dL (13.0-18.0); Mean Corp Hgb Conc. 34.6 g/dL (33.0-37.0); Mean Corpuscular Volume 87.5 fL (80.0-94.0); Nucleated Red Blood Cells % 0 % (-); Platelet Count 368 10^3/uL (130-400); Red Cell Dist. Width 13.1 % (11.5-14.5)
[2025-07-18 13:56] LABS: Blood Urea Nitrogen 14 mg/dl (9-20); Calcium 9.4 mg/dl (8.4-10.2); Carbon Dioxide 29 mmol/L (22-30); Chloride 104 mmol/L (98-107); Glucose 87 mg/dl (70-99); Potassium 4.3 mmol/L (3.5-5.1); Sodium 140 mmol/L (135-145); eGFR > 60.00
== END ==
LOC: REG 11:38
PROVIDERS: ATTENDING PHYSICIAN Specialist
DX: Z01.818 Encounter for other preprocedural examination (principal)
CPT/HCPCS: 36415; 80048; 85025; 93005